=== PATIENT | male | born 1955 | race Caucasian/White ===

== ENCOUNTER 2024-11-22 11:31 | Emergency (ER) | payer MEDICAID ==
--- OUTSIDE RECORDS SUMMARY | 2024-11-22 11:38 | XMS REPORT | Continuity of Care Document ---
Author Name Unknown Address [address] [facility]. [address] [id number] [facility] thconnect Address [address] [facility]. 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 Name Role Phone Hernesto Arias Primary Care Physician [phone] JUAN RAMON HALE Attending Clinician Unavailable MAYUR VELEZ Attending Clinician Unavailabl e LAB90 Attending Clinician Unavailable MARYLIN STUART Attending Clinician UnavailNaren Shepherd Attending Clinician Unavailable MARIN WEEMS Attending Clinician Unava ilable GINA_Calvin_Zoila Attending Clinician Unavaila luke AO_A_Provider Attending Clinician Unavailable PRECIOUS CULP Attending Clinician Unavailable ABIMAEL FAUSTIN Attending Clinician UnavailCOLETTE Freed Attending Clinician UnaNAREN Espinosa Attending Clinician Unavailable VIVEK CHEEK Attending Clinician Unavailable Lit London Attending Clinician Unavailab Kathi Jacobs MD Attending Clinician KATHI BRUNSON Attending Clinician Unavailable Unknown, Attending Attending Clinician Unavailab le Doctor Unassigned, Vina Attending Clinician U Asia Lundberg Attending Clinician [phone] Naren Simpson Attending Clinician [phone] Radiology Attending Clinician Unavailable RADIOLOGY Attending Clinician Unavailable DUSTY DICKERSON P.A. Attending Clinician Unavailab ANGUS Ann M.D. Attending Clinician Unavailable ANGUS VUONG Attending Clinician UnavailLEONCIO Guzman M.D. Attending Clinician Unavaila Naren Cohn Admitting Clinician Unavailable GINA_Calvin_Naren_ Admitting Clinician Unavaila luke AO_A_Provider Admitting Clinician Unavailable Hernesto Arias Admitting Clinician Unavailable Physician, No Primary or Family Admitting Clinic kelly Unavailable Payers Payer Name Policy Type Policy Number Effective Date Expirati on Date Source [facility] HMO-POS 16 [id number] 00:00:00 PAIGE FLORES - [place] [employer] (MEDICARE REPLACEMENT HMO) [id number] WENDI BRACING - [facility] [id number] [place] [employer] [id number] 2019 00:00:00 [place] [id number] 2018 00:00:00 [place] [id number] 2018 00:00:00 2022 00:00:00 Problems Condition Name Condition Details Condition Category Status Onset Date Resolution Date Last Treatment Date Treating Clinician Comments Source Well adult exam Well adult exam Disease Active 2023-11 2- 00:00: 00 Paige Yoon Externa l History of ankle surgery History of ankle surgery Disease Active 2022-11 2-15 00:00: 00 Paige lewis Class 1 obesity due to excess calories with serious comorbidit y and body mass index (BMI) of 34.0 to 34.9 in adult Class 1 obesity due to excess calories with serious comorbidit y and body mass index (BMI) of 34.0 to 34.9 in adult Disease Active 05-01 00:00: 00 Paige lewis HTN (hypertens ion) HTN (hypertens ion) Disease Active 05-01 00:00: 00 Paige lewis Hyperlipid emia Hyperlipid emia Disease Active 05-01 00:00: 00 Paige lewis Obesity Obesity Disease Active 05-01 00:00: 00 Paige lewis Post-traum atic osteoarthr itis, 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, left ankle and foot Disease Active 05-01 00:00: 00 Paige lewis History of colon polyps History of colon polyps Disease Active 05-01 00:00: 00 Paige lewis Risk for falls Risk for falls Disease Active 05-01 00:00: 00 Paige Duponta debbie Prediabete s Prediabete s Disease Active 05-01 00:00: 00 Paige lewis Pain of right shoulder joint Pain of Right Shoulder Joint Problem Active 2021-11 00:00: 00 [facility] Rupture of tendon of biceps Rupture of Tendon of Biceps Problem Active 2021-11 00:00: 00 [facility] Pain of right elbow joint Pain of Right Elbow Joint Problem Active 2021-11 00:00: 00 [facility] Dehiscence of surgical wound Dehiscence of Surgical Wound Problem Active 05-08 00:00: 00 [facility] Pseudarthr osis after fusion or arthrodesi s Pseudarthr osis after Fusion or Arthrodesi s Problem Active 2022-0 4-21 00:00: 00 [facility] Osteoarthr itis of left ankle due to trauma Osteoarthr itis of Left Ankle Due to Trauma Problem Active 0 7-06 00:00: 00 [facility] Pain of left ankle joint Pain of Left Ankle Joint Problem Active 0 6-09 00:00: 00 [facility] Closed dislocatio n of left ankle Closed dislocatio n of left ankle Disease Active 18 00:00: 00 [facility] Open displaced fracture of neck of left talus with routine healing Open displaced fracture of neck of left talus with routine healing Disease Active 18 00:00: 00 [facility] Closed displaced fracture of left talus, unspecifie d portion of talus, initial encounter Closed displaced fracture of left talus, unspecifie d portion of talus, initial encounter Problem [facility] Allergies, Adverse Reactions, Alerts Allergy Name Allergy Type Status Severity Reaction(s) Onset Date Inactive Date Treating Clinician Comments Source No Known Drug Allergie s DA Active U 0 6-18 00:00: 00 [facility] No Known Drug Allergie s DA Active U 0 6-12 00:00: 00 [facility] No Known Drug Allergie s DA Active U 0 2-12 00:00: 00 [facility] No Known Allergie s DA Active U 0 9-19 00:00: 00 [facility] No Known Allergie s DA Active U 0 6-28 00:00: 00 [facility] No Known Allergie s DA Active U 0 7-02 00:00: 00 [facility] No Known Allergie s DA Active U 0 7-02 00:00: 00 [facility] No Known Drug Allergie s DA Active U 0 3-24 00:00: 00 [facility] No Known Drug Allergie s DA Active U UNKNOWN 0 3-24 00:00: 00 [facility] NO KNOWN ALLERGIE S Drug Class Active [facility] Social History Social Habit Start Date Stop Date Quantity Comments Source Gender identity Sadie garcia Carina - External Sexual orientation Yash langford Segrace - External History of Occupation Paige Lim - External Alcoholic beverage intake 2024-11-01 00:00:00 2024-11-01 00:00:00 Current drinker of alcohol (finding) Paige Lim - External Alcohol intake 2023-10-31 00:00:00 2023-10-31 00:00:00 Current drinker of alcohol (finding) Paige Lim - External History of Social function 2023-08-04 00:00:00 2023-08-04 00:00:00 Paige Lim - External Tobacco use and exposure 2023-05-01 00:00:00 2023-05-01 00:00:00 Smokeless tobacco non-user Paige Lim - External Education 2023-05-01 00:00:00 2023-05-01 00:00:00 13 Paige Lim - External Alcohol Comment 2023-05-01 00:00:00 2023-05-01 00:00:00 occasionally Paige Lim - External Sex 2022-12-27 10:42:34 2022-12-27 10:42:34 Male (finding) Paige Lim - External Exposure to SARS-CoV-2 (event) 2022-10-19 00:00:00 2022-10-29 08:56:00 Not sure [facility] Sex assigned at 1955 00:00:00 1955 00:00:00 Paige Lim - External Smoking Status Start Date Stop Date Source Tobacco smoking consumption unknown [facility] Never smoked tobacco Paige Lim - External Medications Ordered Medication Name Filled Medication Name Start Date Stop Date Current Medication? Ordering Clinician Indication Dosage Frequency Signature (SIG) Comments Components Source Tirzepatide -Weight Management 2.5 MG/0.5ML subcutaneou s Solution Auto-inject or 2023-11 00:00: 00 Yes [id number] 104 2.5mg Q1W Inject 0.5 mL (2.5 mg total) into the skin once a week. Paige lewis Aspirin 81 MG oral Tablet Delayed Response 14 14:49: 33 04-30 00:00 :00 No 81mg Take 1 tablet (81 mg total) by mouth daily. Paige lewis Atorvastati n Calcium 40 MG oral Tablet 04-30 00:00: 00 Yes [id number] 40mg QD Take 1 tablet (40 mg total) by mouth nightly. Paige lewis Candesartan Cilexetil 32 MG oral Tablet 04-30 00:00: 00 Yes [id number] 1{tbl} QD Take 1 tablet by mouth daily. Paige lewis Aspirin 81 MG oral Tablet Delayed Response 04-30 00:00: 00 Yes [id number] 81mg QD Take 1 tablet (81 mg total) by mouth daily. Paige lewis Atorvastati n Calcium 40 MG oral Tablet 12-31 00:00: 00 04-30 00:00 :00 No 40mg Take 1 tablet (40 mg total) by mouth nightly. Paige lewis Candesartan Cilexetil 32 MG oral Tablet 12-31 00:00: 00 04-30 00:00 :00 No 1{tbl} Take 1 tablet by mouth daily. Paige lewis Aspirin 81 MG oral Tablet Delayed Response 2022-11 14:11: 04 Yes 81mg Take 1 tablet (81 mg total) by mouth daily. Paige lewis Candesartan Cilexetil 32 MG oral Tablet 2022-1115 14:10: 42 Yes 1{tbl} Take 1 tablet by mouth daily. Paige lewis Acetaminoph en-Codeine 300-30 MG oral Tablet 2022-11 0-23 00:00: 00 04-30 00:00 :00 No TAKE 1-2 TAB(S) BY ORAL ROUTE EVERY 6 HOURS NEEDED FOR PAIN Paige lewis Atorvastati n Calcium 40 MG oral Tablet 5-26 00:00: 00 Yes 40mg Take 1 tablet (40 mg total) by mouth daily. Paige lewis ketorolac (TORADOL) injection 30 mg 2021-11 16:30: 00 10-29 15:34 :00 No [id number] [address] [facility] atorvastati n 40 mg tablet 2021-11 09:23: 10 Yes atorvastat in 40 mg tablet [facility] chlorthalid one 25 mg tablet 2021-11 09:23: 10 Yes chlorthali done 25 mg tablet TAKE 1 TABLET BY MOUTH EVERY MORNING WITH FOOD [facility] liraglutide , weight loss, (SAXENDA) 3 mg/0.5 mL (18 mg/3 mL) PnIj 2021-11 09:23: 09 Yes Saxenda 3 mg/0.5 mL (18 mg/3 mL) subcutaneo us pen injector [facility] gabapentin 300 mg capsule 2021-11 09:23: 09 Yes gabapentin 300 mg capsule [facility] traMADoL 50 mg tablet 2021-11 00:00: 00 11-06 05:59 :00 No [id number] 50mg Take 1 tablet by mouth every 6 (six) hours as needed for Pain (scale 7-10) for up to 7 days. Indication s: acute pain [facility] Candesartan Cilexetil-H CTZ 32-12.5 MG oral Tablet 2021-11 0-14 00:00: 00 Yes candesarta n 32 mg-hydroch lorothiazi de 12.5 mg tablet Paige lewis atorvastati n 40 mg tablet 2021-11 00:00: 00 Yes 40mg Take 40 mg by mouth in the morning. [facility] amLODIPine 2.5 mg tablet 2021-11 004 00:00: 00 Yes 2.5mg Take 2.5 mg by mouth in the morning. [facility] Sulfamethox azole-Trime thoprim 800-160 MG Oral Tablet Sulfamethox azole-Trime thoprim 800-160 MG Oral Tablet 2019-11 00:00: 00 Yes ANGUS VUONG M.D. 1 Q12H TAKE 1 TABLET Every twelve hours [facility] Sulfamethox azole-Trime thoprim 800-160 MG Oral Tablet Sulfamethox azole-Trime thoprim 800-160 MG Oral Tablet 2019-11 00:00: 00 Yes ANGUS VUONG M.D. 1 Q12H TAKE 1 TABLET Every twelve hours [facility] traMADol HCl - 50 MG Oral Tablet traMADol HCl - 50 MG Oral Tablet 2019-11 00:00: 00 Yes ANGUS VUONG M.D. 1 Q8H TAKE 1 TABLET EVERY 8 HOURS PRN [facility] Acetaminoph en-Codeine #3 300-30 MG Oral Tablet Acetaminoph en-Codeine #3 300-30 MG Oral Tablet 2019-11 00:00: 00 Yes ANGUS VUONG M.D. 1 Q6H TAKE 1 TABLET EVERY 6 HOURS PRN pain [facility] Gabapentin 300 MG Oral Capsule Gabapentin 300 MG Oral Capsule 2019-11 00:00: 00 Yes ANGUS VUONG M.D. Q0.3333D TAKE ONE CAPSULE BY MOUTH THREE TIMES A DAY [facility] traMADol HCl - 50 MG Oral Tablet traMADol HCl - 50 MG Oral Tablet 2019-11 00:00: 00 Yes DUSTY Gandara.A. 1 Q8H TAKE 1 TABLET EVERY 8 HOURS PRN [facility] Gabapentin 300 MG Oral Capsule Gabapentin 300 MG Oral Capsule 2019-11 00:00: 00 Yes DUSTY DICKERSON P.A. 1 Q0.3333D TAKE 1 CAPSULE 3 TIMES DAILY [facility] Methocarbam ol 500 MG Oral Tablet Methocarbam ol 500 MG Oral Tablet 2019-11 00:00: 00 Yes DUSTY DICKERSON P.A. 1 Q12H TAKE 1 TABLET Every twelve hours PRN [facility] amoxicillin 875 mg-potassiu m clavulanate 125 mg tablet TAKE 1 TABLET TWICE A DAY BY ORAL ROUTE DIRECTED FOR 56 DAYS. amoxicillin 875 mg-potassiu m clavulanate 125 mg tablet TAKE 1 TABLET TWICE A DAY BY ORAL ROUTE DIRECTED FOR 56 DAYS. No amoxicilli n 875 mg-potassi um clavulanat e 125 mg tablet TAKE 1 TABLET TWICE A DAY BY ORAL ROUTE DIRECTED FOR 56 DAYS. [facility] baclofen 10 mg tablet TAKE 5 MG (1/2 TABLET) BY MOUTH EVERY 6 HOURS NEEDED FOR MUSCLE SPASMS LEFT ANKLE FRACTURE baclofen 10 mg tablet TAKE 5 MG (1/2 TABLET) BY MOUTH EVERY 6 HOURS NEEDED FOR MUSCLE SPASMS LEFT ANKLE FRACTURE No baclofen 10 mg tablet TAKE 5 MG (1/2 TABLET) BY MOUTH EVERY 6 HOURS NEEDED FOR MUSCLE SPASMS LEFT ANKLE FRACTURE [facility] doxycycline hyclate 100 mg capsule TAKE 1 CAPSULE TWICE A DAY BY ORAL ROUTE DIRECTED FOR 56 DAYS. doxycycline hyclate 100 mg capsule TAKE 1 CAPSULE TWICE A DAY BY ORAL ROUTE DIRECTED FOR 56 DAYS. No doxycyclin e hyclate 100 mg capsule TAKE 1 CAPSULE TWICE A DAY BY ORAL ROUTE DIRECTED FOR 56 DAYS. [facility] meloxicam 7.5 mg tablet TAKE 1 TABLET (7.5 MG TOTAL) BY MOUTH 1 (ONE) TIME EACH DAY. meloxicam 7.5 mg tablet TAKE 1 TABLET (7.5 MG TOTAL) BY MOUTH 1 (ONE) TIME EACH DAY. No meloxicam 7.5 mg tablet TAKE 1 TABLET (7.5 MG TOTAL) BY MOUTH 1 (ONE) TIME EACH DAY. [facility] methocarbam ol 500 mg tablet TAKE 1 TABLET BY MOUTH EVERY 6 TO 8 HOURS NEEDED methocarbam ol 500 mg tablet TAKE 1 TABLET BY MOUTH EVERY 6 TO 8 HOURS NEEDED No methocarba mol 500 mg tablet TAKE 1 TABLET BY MOUTH EVERY 6 TO 8 HOURS NEEDED [facility] Santyl 250 unit/gram topical ointment APPLY TOPICALLY TO WOUND (LEFT HEEL) DIRECTED ONCE DAILY FOR 30 DAYS Santyl 250 unit/gram topical ointment APPLY TOPICALLY TO WOUND (LEFT HEEL) DIRECTED ONCE DAILY FOR 30 DAYS No Santyl 250 unit/gram topical ointment APPLY TOPICALLY TO WOUND (LEFT HEEL) DIRECTED ONCE DAILY FOR 30 DAYS [facility] cyclobenzap rine 5 mg tablet TAKE 1 TABLET BY MOUTH EVERYDAY AT BEDTIME cyclobenzap rine 5 mg tablet TAKE 1 TABLET BY MOUTH EVERYDAY AT BEDTIME No cyclobenza willis 5 mg tablet TAKE 1 TABLET BY MOUTH EVERYDAY AT BEDTIME [facility] gabapentin 100 mg capsule TAKE 1 CAPSULE BY MOUTH THREE TIMES A DAY gabapentin 100 mg capsule TAKE 1 CAPSULE BY MOUTH THREE TIMES A DAY No gabapentin 100 mg capsule TAKE 1 CAPSULE BY MOUTH THREE TIMES A DAY [facility] hydrocodone 5 mg-acetamin ophen 325 mg tablet TAKE 1-2 TABLET(S) BY ORAL ROUTE EVERY 6 HOURS NEEDED FOR PAIN hydrocodone 5 mg-acetamin ophen 325 mg tablet TAKE 1-2 TABLET(S) BY ORAL ROUTE EVERY 6 HOURS NEEDED FOR PAIN No hydrocodon e 5 mg-acetami nophen 325 mg tablet TAKE 1-2 TABLET(S) BY ORAL ROUTE EVERY 6 HOURS NEEDED FOR PAIN [facility] sodium,pota ssium,mag sulfates 17.5 gram-3.13 gram-1.6 gram oral soln sodium,pota ssium,mag sulfates 17.5 gram-3.13 gram-1.6 gram oral soln No sodium,pot assium,mag sulfates 17.5 gram-3.13 gram-1.6 gram oral soln [facility] albuterol sulfate HFA 90 mcg/actuati on aerosol inhaler INHALE 1 PUFF BY MOUTH EVERY 4 HOURS NEEDED FOR COUGH OR WHEEZE albuterol sulfate HFA 90 mcg/actuati on aerosol inhaler INHALE 1 PUFF BY MOUTH EVERY 4 HOURS NEEDED FOR COUGH OR WHEEZE No albuterol sulfate HFA 90 mcg/actuat ion aerosol inhaler INHALE 1 PUFF BY MOUTH EVERY 4 HOURS NEEDED FOR COUGH OR WHEEZE [facility] Immunizations Ordered Immunization Name Filled Immunization Name Date Status Comments Source Shingles IM (Shingrix) 2023-04-16 00:00:00 Gennaro Yoon External Shingles IM (Shingrix) 2023-04-16 00:00:00 Gennaro Mccrary Influenza Virus Vaccine, Unspecified Formulation 2022-08-17 00:00:00 Gennaro Yoon External Influenza Virus Vaccine, Unspecified Formulation 2022-08-17 00:00:00 Gennaro Mccrary Influenza Virus Vaccine, Quadrivalent, High Dose, Age 65 And Up 2022-08-05 00:00:00 Gennaro Lim - External Influenza Virus Vaccine, Quadrivalent, High Dose, Age 65 And Up 2022-08-05 00:00:00 [facility] Moderna (Spikevax), Mrna-lnp, Vicente Protein, Pf 2021-12-08 00:00:00 Completed [facility]ige [facility] - External Covid-19 Vaccine Moderna (Spikevax), Mrna-lnp, Vicente Protein, Pf 2021-12-08 00:00:00 [facility] Influ[facility] Vaccine, Quadrivalent, High Dose, Age 65 And Up 2021-09-14 00:00:00 [facility] Influ[facility] Vaccine, Quadrivalent, High Dose, Age 65 And Up 2021-09-14 00:00:00 [facility] Influ[facility] Vaccine, Unspecified Formulation 2021-08-17 00:00:00 [facility] Influ[facility] Vaccine, Unspecified Formulation 2021-08-17 00:00:00 Completed Paige [facility] External Covid-19 Vaccine Moderna (Spikevax), Mrna-lnp, Vicente Protein, Pf 2021-02-21 00:00:00 Completed Paige [facility] - External Covid-19 Vaccine Moderna (Spikevax), Mrna-lnp, Vicente Protein, Pf 2021-02-21 00:00:00 Completed Paige [facility] External Covid-19 Vaccine Moderna (Spikevax), Mrna-lnp, Vicente Protein, Pf 2021-01-24 00:00:00 Completed [facility] - External Covid-19 Vaccine Moderna (Spikevax), Mrna-lnp, Vicente Protein, Pf 2021-01-24 00:00:00 Completed Paige [facility] - External influenza, unspecified formulation influenza, unspecified formulation Unknown Completed [facility] Influenza Virus Vaccine, Quadrivalent, High Dose, Age 65 And Up Unknown Completed Paige [facility] - External Influenza Virus Vaccine, Quadrivalent, High Dose, Age 65 And Up Unknown Completed [facility] - External Influenza Virus Vaccine, Unspecified Formulation Unknown [facility] Sh[facility] (Shingrix) Unknown Completed Paige Seybold - External Covid-19 Vaccine Moderna (Spikevax), Mrna-lnp, Vicente Protein, Pf Unknown Completed Paige Clayton[facility] - External Influenza Virus Vaccine, High Dose, Age 65 And Up Unknown Completed Paige Claytony[facility] - External Influenza Virus Vaccine, Quadrivalent, High Dose, Age 65 And Up Unknown Completed Paige Zamora [facility] - External Influenza Virus Vaccine, Quadrivalent, High Dose, Age 65 And Up Unknown Completed Paige S [facility] - External Influenza Virus Vaccine, Unspecified Formulation Unknown Completed Paige Claytonybold - External Shingles IM (Shingrix) Unknown Completed Paige Claytonybold - External Covid-19 Vaccine Moderna (Spikevax), Mrna-lnp, Vicente Protein, Pf Unknown Completed Paige Claytonybold - External Influenza Virus Vaccine, High Dose, Age 65 And Up Unknown Completed Paige Claytonybold - External Influenza Virus Vaccine, Quadrivalent, High Dose, Age 65 And Up Unknown Completed Paige S eybold - External Influenza Virus Vaccine, Quadrivalent, High Dose, Age 65 And Up Unknown Completed Paige S [facility] - External Influenza Virus Vaccine, Unspecified Formulation Unknown Completed Paige Holmanold - External Shingles IM (Shingrix) Unknown Completed Paige Claytonybold - External Covid-19 Vaccine Moderna (Spikevax), Mrna-lnp, Vicente Protein, Pf Unknown Completed Paige Claytonybold - External Influenza Virus Vaccine, High Dose, Age 65 And Up Unknown Completed Paige Claytonybold - External Pneumococcal Vaccine, Conjugate 20 Unknown Completed Paige Claytonybold - External Vital Signs Vital Name Observation Time Observation Value Comments S ource Systolic blood pressure 2024-11-01 19:50:00 138 mm[Hg] Paige Holmano ld - External Diastolic blood pressure 2024-11-01 19:50:00 80 mm[Hg] Paige ganesho ld - External Heart rate 2024-11-01 19:50:00 76 /min Christian Lim - External Body temperature 2024-11-01 19:50:00 36.67 Denise Paige ybcameron - External Respiratory rate 2024-11-01 19:50:00 18 /min Paige Lim - External Body height 2024-11-01 19:50:00 177.8 cm Sadie garcia grace - External Body weight 2024-11-01 19:50:00 117.935 kg Sadie ey Seybold - External BMI 2024-11-01 19:50:00 37.31 kg/m2 Sadie ey Seybold - External Oxygen saturation in Arterial blood by Pulse oximetry 2024-11-01 19:50:00 98 /min Paige Seybo ld - External Systolic blood pressure 2024-04-30 19:49:00 138 mm[Hg] Paige Seybo ld - External Diastolic blood pressure 2024-04-30 19:49:00 78 mm[Hg] Paige Seybo ld - External Heart rate 2024-04-30 19:33:00 77 /min Kelse y Seybold - External Body temperature 2024-04-30 19:33:00 37.22 Denise Paige Seybold - External Respiratory rate 2024-04-30 19:33:00 16 /min Paige Seybold - External Body height 2024-04-30 19:33:00 177.8 cm Sadie ey Seybold - External Body weight 2024-04-30 19:33:00 108.863 kg Sadie ey Seybold - External BMI 2024-04-30 19:33:00 34.44 kg/m2 Sadie ey Seybold - External Oxygen saturation in Arterial blood by Pulse oximetry 2024-04-30 19:33:00 97 /min Paige Seybo ld - External Systolic blood pressure 2023-10-31 20:15:00 136 mm[Hg] Paige Seybo ld - External Diastolic blood pressure 2023-10-31 20:15:00 72 mm[Hg] Paige Seybo ld - External Body weight 2023-10-31 20:11:00 104.327 kg Sadie ey Seybold - External BMI 2023-10-31 20:11:00 33.00 kg/m2 Sadie ey Seybold - External Oxygen saturation in Arterial blood by Pulse oximetry 2023-10-31 20:11:00 99 /min Paige Seybo ld - External Heart rate 2023-10-31 20:11:00 73 /min Kelse y Seybold - External Body temperature 2023-10-31 20:11:00 36.72 Denise Paige Seybold - External Respiratory rate 2023-10-31 20:11:00 15 /min Paige Seybold - External Body height 2023-10-31 20:11:00 177.8 cm Sadie ey Seybold - External Systolic blood pressure 2023-05-07 18:29:00 140 mm[Hg] Paige Seybo ld - External Diastolic blood pressure 2023-05-07 18:29:00 90 mm[Hg] Paige Seybo ld - External Heart rate 2023-05-07 18:29:00 90 /min Kelse y Seybold - External Respiratory rate 2023-05-07 18:29:00 16 /min Paige Seybold - External Body height 2023-05-07 18:29:00 177.8 cm Sadie ey Seybold - External Body weight 2023-05-07 18:29:00 106.142 kg Sadie ey Seybold - External BMI 2023-05-07 18:29:00 33.58 kg/m2 Sadie ey Seybold - External Systolic blood pressure 2023-05-01 15:58:00 142 mm[Hg] Paige Seybo ld - External Diastolic blood pressure 2023-05-01 15:58:00 80 mm[Hg] Paige Seybo ld - External Heart rate 2023-05-01 15:22:00 97 /min Kelse y Seybold - External Body temperature 2023-05-01 15:22:00 36.72 Denise Paige Seybold - External Respiratory rate 2023-05-01 15:22:00 14 /min Paige Seybold - External Body height 2023-05-01 15:22:00 177.8 cm Sadie ey Seybold - External Body weight 2023-05-01 15:22:00 106.142 kg Sadie ey Seybold - External BMI 2023-05-01 15:22:00 33.58 kg/m2 Sadie ey Seybold - External Oxygen saturation in Arterial blood by Pulse oximetry 2023-05-01 15:22:00 99 /min Paige Claytonybo ld - External Height 2022-11-06 00:00:00 70 [in_i] [facility] Height 2022-10-30 00:00:00 70 [in_i] [facility] Systolic blood pressure 2022-10-29 15:14:00 143 mm[Hg] [facility] Diastolic blood pressure 2022-10-29 15:14:00 79 mm[Hg] [facility] Heart rate 2022-10-29 15:13:00 87 /[facility] Body temperature 2022-10-29 15:13:00 37.06 Denise [facility] Respiratory rate 2022-10-29 15:13:00 17 /min [facility] Body height 2022-10-29 15:13:00 177.8 cm [facility] Body weight 2022-10-29 15:13:00 102.513 kg [facility] BMI 2022-10-29 15:13:00 32.43 kg/m2 [facility] Oxygen saturation in Arterial blood by Pulse oximetry 2022-10-29 15:13:00 99 /min [facility] Body Weight 2022-08-14 00:00:00 217 [lb_av] [facility] Height 2022-08-14 00:00:00 70 [in_i] [facility] BMI (Body Mass Index) 2022-08-14 00:00:00 31.1 kg/m2 [facility] Height 2022-08-07 00:00:00 70 [in_i] [facility] BMI (Body Mass Index) 2022-08-07 00:00:00 31.1 kg/m2 [facility] Body Weight 2022-08-07 00:00:00 217 [lb_av] [facility] Procedures Procedure Date / Time Performed Performing Clinician Source XR, ankle, 3 or more view 2024-07-14 00:00:[address] [facility] [address], ankle, w/o contrast 2024-07-14 00:00:00 [facility] XR, ankle, 3 or more view 2024-06-11 00:00:00 [facility] [id number] 2024-05-04 00:00:00 LENA [facility] [id number] 2024-05-04 00:00:00 BRIMA.01 [facility] XR, ankle, 3 or more view 2024-03-31 00:00:[address] [facility], ankle, w/o contrast 2024-03-31 00:00:00 [facility] XR, ankle, 3 or more view 2024-03-03 00:00:00 [facility] XR, ankle, 3 or more view 2024-02-04 00:00:[address] [facility] [address], ankle, w/o contrast 2024-02-04 00:00:00 [facility] XR, ankle, 3 or more view 2023-12-01 00:00:[address] [facility] [address], ankle, w/o contrast 2023-12-01 00:00:00 [facility] XR, ankle, 3 or more view 2023-10-27 00:00:00 [facility] XR, ankle, 3 or more view 2023-10-06 00:00:00 [facility] XR, ankle, 3 or more view 2023-09-22 00:00:00 [facility] [id number] 2023-09-04 00:00:00 [facility] [id number] 2023-09-04 00:00:00 [facility] [id number] 2023-05-27 00:00:00 [facility] [id number] 2023-05-27 00:00:00 [facility] QUANTAFLO 2023-05-01 16:05:52 Juan Ramon Hale Seybold - External Colonoscopy 2023-04-29 00:00:00 [facility] DEXA, axial skeleton + vertebral fracture assessment 2023-03-12 00:00:00 [facility] XR, ankle, 3 or more view 2023-03-07 00:00:[address] [facility] [address], ankle, w/o contrast 2023-02-06 00:00:00 [facility] XR, ankle, 3 or more view 2022-11-22 00:00:[address] [facility] [address], ankle, w/o contrast 2022-11-22 00:00:00 [facility] MRI, shoulder, w/o contrast 2022-11-06 00:00:00 [facility] MRI, elbow, w/o contrast 2022-10-30 00:00:00 [facility] XR ELBOW >3 VW RIGHT 2022-10-29 15:42:00 Kathi Brunson [facility] ASSIGNMENT OF BENEFITS 2022-10-29 15:00:12 Docto r Unassigned, Vina [facility] XR, ankle, 3 or more view 2022-09-23 00:00:00 [facility] XR, ankle, 3 or more view 2022-07-17 00:00:[address] [facility] [address], ankle, w/o contrast 2022-07-17 00:00:00 [facility] [id number] 2022-06-13 00:00:00 BRIMA.01 [facility] [id number] 2022-06-11 00:00:00 BERED [facility] [id number] 2022-06-11 00:00:00 BRIMA.01 [facility] XR, ankle, 3 or more view 2022-05-08 00:00:00 [facility] [id number] 2022-03-05 00:00:00 BERED [facility] [id number] 2022-03-05 00:00:00 BERED [facility] [id number] 2022-03-05 00:00:00 BRIMA.01 [facility] [id number] 2022-03-05 00:00:00 BRIMA.01 [facility] [id number] 2022-03-05 00:00:00 BRIMA.01 [facility] [id number] 2022-03-05 00:00:00 BERED [facility] [id number] 2022-03-05 00:00:00 BERED [facility] [id number] 2022-03-05 00:00:00 BRIMA.01 [facility] [id number] 2022-03-05 00:00:00 BRIMA.01 [facility] [id number] 2022-03-05 00:00:[address] BRIMA.[address] [facility] [address] FOOT LEFT WO CONTRAST 2021-04-11 21:51:00 Requisition, Paper [facility] Post Op Promis 29 Survey 2020-12-06 00:00:00 [facility] [U] XRAY ANKLE MIN 3 VWS LEFT [id number] 2020-11-07 00:00:00 [facility] Encounters Start Date/Time End Date/Time Encounter Type Admission Type Attending Clinicians Care Facility Care Department Encounter ID Source 2025-05-02 14:00:00 2025-05-02 14:00:00 Outpatient JUAN RAMON HALE [id number] [facility] 2024-11-29 13:30:00 2024-11-29 13:30:00 Outpatient MAYUR VELEZ [id number] [facility] 2024-11-22 00:00:00 2024-11-22 00:00:00 Outpatient JUAN RAMON HALE [id number] [facility] 2024-11-04 00:00:00 2024-11-04 00:00:00 Outpatient JUAN RAMON HALE [id number] [facility] 2024-11-03 00:00:00 2024-11-03 00:00:00 Outpatient JUAN RAMON HALE [id number] [facility] 2024-11-01 15:00:00 2024-11-01 15:00:00 Outpatient LABSatish CAVANAUGH [id number] [facility] 2024-11-01 14:00:00 2024-11-01 14:00:00 [facility] [id number] [facility]25 00:00:00 2024-10-25 00:00:00 Outpatient MARYLIN STUART [id number] [facility] 2024-10-20 11:00:00 2024-10-20 11:00:00 Outpatient Naren Garrett [facility] [id number] [facility] 2024-10-20 00:00:00 2024-10-20 00:00:00 Naren Simpson MD: [address] [place] [address] , Ph. [phone] [place] [facility] [place] [facility] F[facility]Ofc Main [place] [id number] [facility] 2024-10-10 00:00:00 2024-10-10 00:00:00 Outpatient CARISSA JUAN RAMON PAIGE CAVANAUGH [id number] [facility] 2024-08-17 00:00:00 2024-08-17 00:00:00 Outpatient PAIGE CAVANAUGH [id number] [facility] 2024-08-13 00:00:00 2024-08-13 00:00:00 Outpatient PAIGE CAVANAUGH [id number] [facility] 2024-07-14 00:00:00 2024-07-14 00:00:00 Naren Simpson MD: [address] [place] [address] , Ph. [phone] [facility] [place] [facility] [place] [facility] [id number] [facility] 2024-06-11 00:00:00 2024-06-11 00:00:00 Naren Simpson MD: [address] [place] [address] , Ph. [phone] [place] [facility] [place] [facility] FOG_Ofc [address] [id number] [facility] 2024-05-14 00:00:00 2024-05-14 00:00:00 Naren Simpson MD: [address] [place] [address] , Ph. [phone] [place] [facility] [place] [facility] [id number] [facility] 2024-05-12 00:00:00 2024-05-12 00:00:00 Outpatient PAIGE CAVANAUGH [id number] [facility] 2024-05-06 00:00:00 2024-05-06 00:00:00 Outpatient MARIN WEEMS PAIGE CAVANAUGH [id number] [facility] 2024-05-04 07:42:00 2024-05-05 12:09:00 Inpatient Naren Garrett [facility] [id number] [facility] 2024-05-04 00:00:00 2024-05-04 00:00:00 Naren Simpson MD: [address] [place] [phone] , Ph. [phone] [facility] [place] [facility] [place] [facility] FOG[facility]Surgery [id number] [facility] 2024-04-30 14:45:00 2024-04-30 14:45:00 Outpatient [facility] RAM[facility] HALE [id number] [facility] 2024-04-28 18:53:00 2024-04-28 18:53:00 Outpatient Naren Simpson HCAC[facility] LABO [id number] 31 [facility] 2024-04-28 11:42:00 2024-04-28 11:42:00 Outpatient BARBARA Naren Simpson [facility] [id number] [facility] 2024-04-28 00:00:00 2024-04-28 00:00:00 Naren Simpson MD: [address] [place] [address] , Ph. [phone] [facility] [place] [facility] [place] [facility] [id number] [facility] 2024-04-06 00:00:00 2024-04-06 00:00:00 Outpatient PAIGE CAVANAUGH [id number] [facility] 2024-03-31 00:00:00 2024-03-31 00:00:00 Naren Simpson MD: [address] [place] [phone] , Ph. [phone] [place] [facility] [place] [facility] [id number] [facility] 2024-03-09 00:00:00 2024-03-09 00:00:00 Outpatient PAIGE CAVANAUGH [id number] [facility] 2024-03-03 12:01:00 2024-03-03 12:01:00 Outpatient [facility]ren Garrett [facility] [id number] [facility] [facility] [place] [facility] 2024-03-03 00:00:00 2024-03-03 00:00:00 Naren Simpson MD: [address] [place] [address] , Ph. [phone] [place] [facility] [place] [facility] [id number] [facility] 2024-03-01 00:00:00 2024-03-01 00:00:00 Outpatient PAIGE CAVANAUGH [id number] [facility] 2024-02-23 00:00:00 2024-02-23 00:00:00 Outpatient [facility] [id number] [facility] 2024-02-12 00:00:00 2024-02-12 00:00:00 Outpatient [facility] [id number] [facility] 2024-02-04 00:00:00 2024-02-04 00:00:00 Naren Simpson MD: [address] [place] [address] , Ph. [phone] [place] [facility] [place] [facility] FOG_Ofc [address] [id number] [facility] 2024-02-04 00:00:00 2024-02-04 00:00:00 Naren Simpson MD: [address] [place] [phone] , Ph. [phone] [place] [facility] [place] [facility] [id number] [facility] 2024-01-09 00:00:00 2024-01-09 00:00:00 Outpatient PAIGE CAVANAUGH [id number] [facility] 2024-01-08 06:25:00 2024-01-08 06:25:00 Outpatient Naren Garrett HCAT[facility] DAYS [id number] 46 [facility] 2024-01-08 00:00:00 2024-01-08 00:00:00 Naren Simpson MD: [address] [place] [address] , Ph. [phone] [place] [facility] [place] [facility] [id number] [facility] 2023-12-30 00:00:00 2023-12-30 00:00:00 Outpatient JUAN RAMON HALE [id number] [facility] 2023-12-29 11:47:00 2023-12-29 11:47:00 Out[facility] [id number] [facility] 2023-12-29 00:00:00 2023-12-29 00:00:00 Naren Simpson MD: [address] [place] [address] , Ph. [phone] [place] [facility] [place] [facility] [id number] [facility] 2023-12-20 00:00:00 2023-12-20 00:00:00 Outpatient AO_A_Provid er AOSM AO [id number] [facility] 2023-12-04 00:00:00 2023-12-04 00:00:00 Outpatient PAIGE CAVANAUGH [id number] [facility] 2023-12-01 00:00:00 2023-12-01 00:00:00 Outpatient GINA_Calvin _Naren_ AOSM AO [id number] [facility] 2023-12-01 00:00:00 2023-12-01 00:00:00 Naren Simpson MD: [address] [place] [address] , Ph. [phone] [place] [facility] [place] [facility] F[facility]Ofc [address] [id number] [facility] 2023-11-30 00:00:00 2023-11-30 00:00:00 Outpatient FOG_Calvin Quiroz AOSM AO [id number] [facility] 2023-11-29 00:00:00 2023-11-29 00:00:00 Outpatient AO_A_Provid er AO AO [id number] [facility] 2023-11-12 00:00:00 2023-11-12 00:00:00 Outpatient PAIGE CAVANAUGH [id number] [facility] 2023-11-04 00:00:00 2023-11-04 00:00:00 Outpatient MARINANoahJUAN RAMON [id number] [facility] 2023-10-31 14:50:00 2023-10-31 14:50:00 Outpatient LAB90 PAIGE CAVANAUGH [id number] [facility] 2023-10-31 14:15:00 2023-10-31 14:15:00 Outpatient JUAN RAMON HALE PAIGE CAVANAUGH [id number] [facility] 2023-10-31 00:00:00 2023-10-31 00:00:00 Outpatient CARISSA JUAN RAMON PAIGE CAVANAUGH [id number] [facility] 2023-10-30 00:00:00 2023-10-30 00:00:00 Outpatient FOG_Calvin Quiroz AO AO [id number] [facility] 2023-10-27 00:00:00 2023-10-27 00:00:00 Naren Simpson MD: [address] [place] [address] , Ph. [phone] AOSM [place] [facility] [place] [facility] [id number] [facility] 2023-10-26 00:00:00 2023-10-26 00:00:00 Outpatient FOG_Calvin Quiroz AOSM AO [id number] [facility] 2023-10-24 00:00:00 2023-10-24 00:00:00 Outpatient AO_A_Provid er AOSM AOSM [id number] [facility] 2023-10-14 00:00:00 2023-10-14 00:00:00 Outpatient MARINAJUAN RAMON Zamora PAIGE CAVANAUGH [id number] [facility] 2023-10-08 00:00:00 2023-10-08 00:00:00 Outpatient PRECIOUS CULP PAIGE CAVANAUGH [id number] [facility] 2023-10-06 00:00:00 2023-10-06 00:00:00 Outpatient PAIGE CAVANAUGH [id number] [facility] 2023-10-06 00:00:00 2023-10-06 00:00:00 Naren Simpson MD: [address] [place] [address] , Ph. [phone] [place] [facility] [place] [facility] [id number] [facility] 2023-10-01 00:00:00 2023-10-01 00:00:00 Outpatient FOG_Brinker _Naren_ AOSM AOSM [id number] [facility] 2023-10-01 00:00:00 2023-10-01 00:00:00 Outpatient FOG_Brinker _Naren_ AOSM AOSM [id number] [facility] 2023-09-22 00:00:00 2023-09-22 00:00:00 Outpatient PAIGE CAVANAUGH [id number] [facility] 2023-09-22 00:00:00 2023-09-22 00:00:00 Naren Simpson MD: [address] [place] [phone] , Ph. [phone] [place] [facility] [place] [facility] [id number] [facility] 2023-09-15 00:00:00 2023-09-15 00:00:00 Outpatient PAIGE CAVANAUGH [id number] [facility] 2023-09-13 00:00:00 2023-09-13 00:00:00 Outpatient FOG_Brinker _Mark_MD AOSM AOSM [id number] [facility] 2023-09-13 00:00:00 2023-09-13 00:00:00 Outpatient FOG_Brinker _Mark_MD AOSM AOSM [id number] [facility] 2023-09-13 00:00:00 2023-09-13 00:00:00 Outpatient FOG_Brinker _Mark_MD AOSM AOSM [id number] [facility] 2023-09-13 00:00:00 2023-09-13 00:00:00 Outpatient FOG_Brinker _Mark_MD AOSM AOSM [id number] [facility] 2023-09-12 00:00:00 2023-09-12 00:00:00 Outpatient FOG_Brinker _Mark_ AOSM AOSM [id number] [facility] 2023-09-12 00:00:00 2023-09-12 00:00:00 Naren Simpson MD: [address] [place] [address] , Ph. [phone] [place] [facility] [place] [facility] [id number] [facility] 2023-09-10 00:00:00 2023-09-10 00:00:00 Outpatient PAIGE CAVANAUGH [id number] [facility] 2023-09-09 00:00:00 2023-09-09 00:00:00 Outpatient MARIN WEEMS [id number] [facility] 2023-09-05 10:27:00 2023-09-08 17:08:00 Inpatient Naren Garrett [facility] [id number] [address] [place] [address] [facility] 2023-09-05 00:00:00 2023-09-05 00:00:00 Outpatient [facility]AVANAUGH [id number] [facility]:00:00 2023-09-05 00:00:00 Angus Leung II, 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 [phone] [place] [facility] [place] [facility] [id number] [facility] 2023-09-04 20:09:00 2023-09-04 20:09:00 Outpatient Naren Simpson [facility] [id number] 95 [facility] 2023-08-28 00:00:00 2023-08-28 00:00:00 Outpatient FOG_Patriceer _Zoila AOSM AOSM [id number] [facility] 2023-08-28 00:00:00 2023-08-28 00:00:00 Outpatient FOG_Brinker _Naren_ AOSM AOSM [id number] [facility] 2023-08-28 00:00:00 2023-08-28 00:00:00 Outpatient FOG_Patriceer Richie AOSM AOSM [id number] [facility] 2023-08-20 00:00:00 2023-08-20 00:00:00 Outpatient FOG_Patriceer _Zoila AOSM AOSM [id number] [facility] 2023-08-19 00:00:00 2023-08-19 00:00:00 Outpatient PAIGE CAVANAUGH [id number] [facility] 2023-08-15 00:00:00 2023-08-15 00:00:00 Outpatient FOG_Brinker Richie AOSM AOSM [id number] [facility] 2023-08-15 00:00:00 2023-08-15 00:00:00 Outpatient FOG_Brinker _MarkJESSIE AOSM AOSM [id number] [facility] 2023-08-15 00:00:00 2023-08-15 00:00:00 Outpatient FOG_Brinker _Mark_MD AOSM AOSM [id number] [facility] 2023-08-14 00:00:00 2023-08-14 00:00:00 Outpatient FOG_Brinker _Mark_MD AOSM AOSM [id number] [facility] 2023-08-13 00:00:00 2023-08-13 00:00:00 Outpatient FOG_Brinker _Mark_MD AOSM AOSM [id number] [facility] 2023-08-10 00:00:00 2023-08-10 00:00:00 Outpatient FOG_Brinker _Mark_ AOSM AOSM [id number] [facility] 2023-07-30 08:00:00 2023-07-30 16:00:00 Outpatient Naren GarrettTO 3DAY [id number] [facility] [place] [facility] 2023-07-30 00:00:00 2023-07-30 00:00:00 Outpatient FOG_Brinker _Mark_ AOSM AOSM [id number] [facility] 2023-07-29 00:00:00 2023-07-29 00:00:00 Outpatient FOG_Brinker _Mark_MD AOSM AOSM [id number] [facility] 2023-07-28 13:26:00 2023-07-28 13:26:00 Outpatient Naren GarrettTO RADI [id number] [facility] [place] [facility] 2023-07-23 00:00:00 2023-07-23 00:00:00 Outpatient PAIGE CAVANAUGH [id number] [facility] 2023-07-16 00:00:00 2023-07-16 00:00:00 Outpatient FOG_Brinker _Mark_MD AOSM AOSM [id number] [facility] 2023-07-16 00:00:00 2023-07-16 00:00:00 Outpatient FOG_Brinker _Mark_MD AOSM AOSM [id number] [facility] 2023-07-13 00:00:00 2023-07-13 00:00:00 Outpatient FOG_Brinker _Mark_MD AOSM AOSM [id number] [facility] 2023-07-09 00:00:00 2023-07-09 00:00:00 Outpatient FOG_Brinker _Mark_MD AOSM AOSM [id number] [facility] 2023-07-03 00:00:00 2023-07-03 00:00:00 Outpatient FOG_Brinker _Mark_MD AOSM AOSM [id number] [facility] 2023-06-27 00:00:00 2023-06-27 00:00:00 Outpatient ABIMAEL FAUSTIN [id number] [facility] 2023-06-11 00:00:00 2023-06-11 00:00:00 Outpatient FOG_Brinker _Mark_MD AOSM AOSM [id number] [facility] 2023-06-03 00:00:00 2023-06-03 00:00:00 Outpatient PAIGE CAVANAUGH [id number] [facility] 2023-06-01 00:00:00 2023-06-01 00:00:00 Outpatient FOG_Brinker _Mark_MD AOSM AOSM [id number] [facility] 2023-06-01 00:00:00 2023-06-01 00:00:00 Outpatient FOG_Brinker _Mark_MD AOSM AOSM [id number] [facility] 2023-06-01 00:00:00 2023-06-01 00:00:00 Outpatient FOG_Brinker _Mark_MD AOSM AOSM [id number] [facility] 2023-06-01 00:00:00 2023-06-01 00:00:00 Outpatient FOG_Calvin _Naren_ AOSM AOSM [id number] [facility] 2023-05-28 13:09:00 2023-05-30 13:47:00 Inpatient Naren Garrett HCAT[facility] SURG [id number] [address] [facility] [place] [facility] 2023-05-30 00:00:00 2023-05-30 00:00:00 Outpatient PAIGE CAVANAUGH [id number] [facility] 2023-05-28 00:00:00 2023-05-28 00:00:00 Outpatient FOG_Calvin Quiroz AOSM AOSM [id number] [facility] 2023-05-27 16:57:00 2023-05-27 16:57:00 Outpatient Naren Simpson HCACL LABO [id number] 77 [facility] 2023-05-27 00:00:00 2023-05-27 00:00:00 Outpatient PAIGE CAVANAUGH [id number] [facility] 2023-05-21 00:00:00 2023-05-21 00:00:00 Outpatient PAIGE CAVANAUGH [id number] [facility] 2023-05-13 00:00:00 2023-05-13 00:00:00 Outpatient FOG_Calvin Quiroz AOSM AOSM [id number] [facility] 2023-05-13 00:00:00 2023-05-13 00:00:00 Outpatient FOG_Calvin Quiroz AOSM AOSM [id number] [facility] 2023-05-12 08:00:00 2023-05-12 23:00:00 Outpatient Naren Garrett HCATO 3DAY [id number] [facility] [place] [facility] 2023-05-09 00:00:00 2023-05-09 00:00:00 Outpatient FOG_Brinker _Naren_MD AOSM AO [id number] [facility] 2023-05-09 00:00:00 2023-05-09 00:00:00 Outpatient FOG_Brinker _Mark_MD AOSM AOSM [id number] [facility] 2023-05-09 00:00:00 2023-05-09 00:00:00 Outpatient FOG_Brjanieer _Naren_ AOSM AOSM [id number] [facility] 2023-05-07 13:20:00 2023-05-07 13:20:00 Outpatient JACOBY COLETTE PAIGE CAVANAUGH [id number] [facility] 2023-05-05 00:00:00 2023-05-05 00:00:00 Outpatient JUAN RAMON HALE [id number] [facility] 2023-05-05 00:00:00 2023-05-05 00:00:00 Outpatient MARIN WEEMS [id number] [facility] 2023-05-01 11:30:00 2023-05-01 11:30:00 Outpatient LIBERTY PAIGE CAVANAUGH [id number] [facility] 2023-05-01 10:30:00 2023-05-01 10:30:00 Outpatient JUAN RAMON HALE [id number] [facility] 2023-04-23 00:00:00 2023-04-23 00:00:00 Outpatient JUAN RAMON HALE [id number] [facility] 2023-04-23 00:00:00 2023-04-23 00:00:00 Outpatient AO_A_Provid er AOSM AO [id number] [facility] 2023-03-12 00:00:00 2023-03-12 00:00:00 Naren Simpson MD: [address] [place] [address] , Ph. [phone] [place] [facility] [place] [facility] [id number] [facility] 2023-03-07 00:00:00 2023-03-07 00:00:00 Outpatient FOG_Brinker _Mark_MD AOSM AO [id number] [facility] 2023-03-07 00:00:00 2023-03-07 00:00:00 Outpatient FOG_Brinker _Mark_MD AOSM AO [id number] [facility] 2023-03-07 00:00:00 2023-03-07 00:00:00 Outpatient FOG_Brinker _Mark_MD AOSM AO [id number] [facility] 2023-03-07 00:00:00 2023-03-07 00:00:00 Naren Simpson MD: [id number] [place] [address] , Ph. [phone] [facility] [place] [facility] [place] [facility] [id number] [facility] 2023-02-19 00:00:00 2023-02-19 00:00:00 Outpatient FOG_Brinker _Naren_ AOSM AO [id number] [facility] 2023-02-07 09:00:00 2023-02-07 09:00:00 Outpatient PAIGE CAVANAUGH [id number] [facility] 2023-02-05 00:00:00 2023-02-05 00:00:00 Outpatient NAREN SIMPSON [id number] [facility] 2023-02-05 00:00:00 2023-02-05 00:00:00 Outpatient NAREN SIMPSON [id number] [facility] 2023-01-20 00:00:00 2023-01-20 00:00:00 Outpatient FOG_Brinker _Mark_ AOSM AO [id number] [facility] 2023-01-20 00:00:00 2023-01-20 00:00:00 [facility] [id number] [facility] 2022-11-27 00:00:00 2022-11-27 00:00:00 Outpatient FOG_Brinker _Zoila AOSM AO [id number] [facility] 2022-11-22 00:00:00 2022-11-22 00:00:00 Outpatient FOG_Brchago _Zoila AO AO [id number] [facility] 2022-11-22 00:00:00 2022-11-22 00:00:00 Naren Simpson MD: [address] [place] [address] , Ph. [phone] [facility] [place] [facility] [place] [facility] FOG_Ofc [address] [id number] [facility] 2022-11-08 09:15:00 2022-11-08 09:15:00 Outpatient VIVEK MARTINEZ [facility] [id number] [facility] 2022-11-06 12:01:00 2022-11-06 12:01:00 Outpatient Lit Sierra HCATO RADI [id number] [address] [facility] 2022-11-06 00:00:00 2022-11-06 00:00:00 Outpatient GINA[facility] [id number] [facility] [facility] 2022-11-06 00:00:00 2022-11-06 00:00:00 Lit London MD: [address] [place] [phone] , Ph. [phone] [place] [facility] [place] [facility] FOG_Ofc [address] [id number] [facility] 2022-10-30 10:44:00 2022-10-30 10:44:00 Outpatient Lit Sierra RADI [id number] [facility] 2022-10-30 00:00:00 2022-10-30 00:00:00 Outpatient FOG[facility]Calvin [facility] [id number] [facility] 2022-10-30 00:00:00 2022-10-30 00:00:00 Lit London MD: [address] [place] [address] , Ph. [phone] [place] [facility] [place] [facility]Ofc [facility] [id number] [facility] 2022-10-30 00:00:00 2022-10-30 00:00:00 Telephone Boy Kathi [facility] 1.840.114 350.1.13.10 4.2.7.2.686 [id number] [facility] 2022-10-29 09:24:55 2022-10-29 23:59:00 Outpatient R KATHI BRUNSON [facility] [id number] [facility] 2022-10-29 09:24:55 2022-10-29 23:59:00 Hospital Encounter Kathi Brunson [facility] 1.84.114 350.1.13.10 4.2.7.2.686 [id number] [facility] 2022-10-29 09:00:00 2022-10-29 09:20:00 Urgent Care Kathi Brunson Unknown, Attending [facility] 1.840.114 350.1.13.10 4.2.7.2.686 [id number] [facility] 2022-10-29 00:00:00 2022-10-29 00:00:00 Orders Only Doctor Unassigned, Vina [facility] 1.84.114 350.1.13.10 4.2.7.2.686 [id number] [facility] 2022-10-17 00:00:00 2022-10-17 00:00:00 Outpatient FOG_Brchago _Zoila AOSM AO [id number] [facility] 2022-09-23 00:00:00 2022-09-23 00:00:00 Outpatient FOG_Brchago _Zoila AOSM AO [id number] [facility] 2022-09-23 00:00:00 2022-09-23 00:00:00 Naren Simpson MD: [address] [place] [address] , Ph. [phone] [place] [facility] [place] [facility] [id number] [facility] 2022-09-05 00:00:00 2022-09-05 00:00:00 Outpatient FOG_Calvin Quiroz AOSM AO [id number] [facility] 2022-08-30 00:00:00 2022-08-30 00:00:00 Outpatient FOG_Calvin Quiroz AOSM AO [id number] [facility] 2022-08-30 00:00:00 2022-08-30 00:00:00 Naren Simpson MD: [address] [place] [phone] , Ph. [phone] [place] [facility] [place] [facility] [id number] [facility] 2022-08-28 00:00:00 2022-08-28 00:00:00 Outpatient FOG_Calvin Quiroz AOSM AO [id number] [facility] 2022-08-25 00:00:00 2022-08-25 00:00:00 Outpatient FOG_Calvin Quiroz AOSM AO [id number] [facility] 2022-08-22 05:51:00 2022-08-24 15:07:00 Outpatient Naren Garrett HCATO OBSE [id number] [facility] 2022-08-22 00:00:00 2022-08-22 00:00:00 Naren Simpson MD: [address] [place] [phone] , Ph. [phone] [place] [facility] [place] [facility] [id number] [facility] 2022-08-19 00:00:00 2022-08-19 00:00:00 Outpatient FOG_Calvin Quiroz AOSM AO [id number] [facility] 2022-08-15 00:00:00 2022-08-15 00:00:00 Outpatient FOG_Calvin Quiroz AOSM AO [id number] [facility] 2022-08-14 16:09:00 2022-08-14 16:09:00 Outpatient Naren Simpson HCACL LABO [id number] [facility] 2022-08-14 08:59:00 2022-08-14 08:59:00 Outpatient Naren Garrett HCATO RADI [id number] [facility] 2022-08-14 00:00:00 2022-08-14 00:00:00 Outpatient FOG_Calvin Quiroz AOSM AO [id number] [facility] 2022-08-14 00:00:00 2022-08-14 00:00:00 Naren Simpson MD: [address] [place] [phone] , Ph. [phone] [place] [facility] [place] [facility] [id number] [facility] 2022-08-09 00:00:00 2022-08-09 00:00:00 Outpatient FOG_Calvin Quiroz AOSM AO [id number] [facility] 2022-08-07 16:02:00 2022-08-07 16:02:00 Outpatient Naren Simpson HCACL LABO [id number] [facility] 2022-08-07 12:55:00 2022-08-07 12:55:00 Outpatient Naren Garrett HCATO LABO [id number] [facility] 2022-08-07 00:00:00 2022-08-07 00:00:00 Outpatient FOG_Calvin _Zoila AOSM AOSM [id number] [facility] 2022-08-07 00:00:00 2022-08-07 00:00:00 Asia Sweeney MD: [address] [place] [phone] , Ph. [phone] [place] [facility] [place] [facility] F[facility] [address] [id number] [facility] 2022-07-17 00:00:00 2022-07-17 00:00:00 Outpatient FOG_Calvin Quiroz AOSM AOSM [id number] [facility] 2022-07-17 00:00:00 2022-07-17 00:00:00 Outpatient Asia Sweeney AOSM AOSM [id number] 2022-07-17 00:00:00 2022-07-17 00:00:00 Outpatient Naren Simpson AOSM AOSM [id number] 2022-07-17 00:00:00 2022-07-17 00:00:00 Asia Sweeney MD: [address] [place] [address] , Ph. [phone] [place] [facility] [place] [facility] [id number] [facility] 2022-07-16 00:00:00 2022-07-16 00:00:00 Outpatient FOG_Calvin Quiroz AOSM AOSM [id number] [facility] 2022-06-26 00:00:00 2022-06-26 00:00:00 Outpatient FOG_Calvin _Zoila AOSM AOSM [id number] [facility] 2022-06-26 00:00:00 2022-06-26 00:00:00 Outpatient Asia Sweeney AOSM AOSM [id number] 2022-06-26 00:00:00 2022-06-26 00:00:00 Asia Sweeney MD: [address] [place] [address] , Ph. [phone] [place] [place] [facility] [place] [facility] [id number] [facility] 2022-06-26 00:00:00 2022-06-26 00:00:00 Outpatient Naren Simpson AOSM AOSM [id number] 2022-06-19 00:00:00 2022-06-19 00:00:00 Outpatient FOG_Calvin Quiroz AOSM AOSM [id number] [facility] 2022-06-12 11:25:00 2022-06-14 19:17:00 Inpatient Naren Garrett HCATO SURG [id number] [facility] [facility] 2022-06-12 11:25:00 2022-06-14 19:17:00 Inpatient Naren Garrett HCATO SURG [id number] [facility] 2022-06-13 00:00:00 2022-06-13 00:00:00 Outpatient FOG_Calvin Quiroz AOSM AOSM [id number] [facility] 2022-06-11 06:12:00 2022-06-11 06:12:00 Outpatient Naren Garrett HCATO OBSE [id number] [facility] 2022-06-11 00:00:00 2022-06-11 00:00:00 Outpatient Naren Simpson AOSM AOSM [id number] 2022-06-11 00:00:00 2022-06-11 00:00:00 Naren Simpson MD: [address] [place] [phone] , Ph. [phone] [place] [place] [facility] [place] [facility] [id number] [facility] 2022-06-10 16:24:00 2022-06-10 16:24:00 Outpatient Naren Simpson HCACL LABO [id number] [facility] 2022-06-10 12:38:00 2022-06-10 12:38:00 Outpatient Naren Garrett HCATO LABO [id number] [facility] 2022-06-10 05:35:00 2022-06-10 05:35:00 Outpatient FOG_Calvin Quiroz AOSM AOSM [id number] [facility] 2022-06-10 00:00:00 2022-06-10 00:00:00 Outpatient Asia Sweeney AOSM AOSM [id number] 2022-06-10 00:00:00 2022-06-10 00:00:00 Outpatient Naren Simpson AOSM AOSM [id number] 2022-06-10 00:00:00 2022-06-10 00:00:00 Asia Sweeney MD: [address] [place] [phone] , Ph. [phone] [place] [place] [facility] [place] [facility] [id number] [facility] 2022-05-22 03:13:00 2022-05-22 03:13:00 Outpatient FOG_Calvin Quiroz AOSM AOSM [id number] [facility] 2022-05-22 00:00:00 2022-05-22 00:00:00 Outpatient Naren Simpson AOSM AOSM [id number] 2022-05-22 00:00:00 2022-05-22 00:00:00 Naren Simpson MD: [address] [place], [place] [address] , Ph. [phone] [place] [place] [facility] [place] [facility] [id number] [facility] 2022-05-14 09:46:00 2022-05-14 09:46:00 Outpatient FOG_Calvin Quiroz AOSM AO [id number] [facility] 2022-05-13 10:51:00 2022-05-13 10:51:00 Outpatient FOG_Calvin Quiroz AOSM AO [id number] [facility] 2022-05-09 06:17:00 2022-05-09 06:17:00 Outpatient Naren Garrett HCATO DAYS [id number] [facility] 2022-05-09 06:17:00 2022-05-09 06:17:00 [facility] [facility] [facility] [id number] [facility] 2022-05-09 00:00:00 2022-05-09 00:00:00 Naren Simpson MD: [address] [place] [address] , Ph. [phone] [place] [place] [facility] [place] [facility] [id number] [facility] 2022-05-09 00:00:00 2022-05-09 00:00:00 Outpatient Naren Simpson AOSM AOSM [id number] 2022-05-08 03:18:00 2022-05-08 03:18:00 Out[facility] FO[facility]uru Hale[facility] [id number] [facility] 2022-05-08 00:00:00 2022-05-08 00:00:00 Naren Simpson MD: [address] [address] , Ph. [phone] [place] [facility] [place] [facility] [id number] [facility] 2022-05-08 00:00:00 2022-05-08 00:00:00 Outpatient Naren Simpson [facility] [id number] 2022-04-10 00:00:00 2022-04-10 00:00:00 Naren Simpson MD: [address] [place] [address] , Ph. [phone] [facility] [place] [facility] [place] [facility]Of[facility] [id number] [facility] 2022-03-07 11:19:00 2022-03-08 17:32:00 Inpatient Naren Garrett HCATO SURG [id number] [facility] [place] [facility] 2022-02-20 15:27:00 2022-02-20 15:27:00 Outpatient Naren Garrett HCATO RADI [id number] [facility] [place] [facility] 2022-02-07 06:12:00 2022-02-07 06:12:00 Outpatient Naren Garrett HCATO DAYS [id number] [facility] [place] [facility] 2021-09-05 08:00:00 2021-09-05 08:00:00 Outpatient Naren Garrett HCATO RADI [id number] [facility] [place] [facility] 2021-05-22 09:20:00 2021-05-24 16:09:00 Outpatient Naren GarrettTO OBSE [id number] [facility] [place] [facility] 2021-05-18 18:15:00 2021-05-18 18:15:00 Outpatient Naren Simpson [facility] [id number] [facility] 2021-05-03 13:40:00 2021-05-03 13:40:00 Outpatient Naren GarrettTO RADI [id number] [facility] 2021-05-03 13:40:00 2021-05-03 13:40:00 Outpatient Naren Garrett HCATO RADI [id number] [facility] 2021-04-25 11:35:00 2021-04-25 11:35:00 Outpatient Naren GarrettTO RADI [id number] [facility] 2021-04-11 16:24:38 2021-04-11 23:59:00 Hospital Encounter Radiology [facility] [id number] 350.1.13.10 [id number] [id number] 2021-04-11 16:24:38 2021-04-11 23:59:00 Hospital Encounter Radiology [facility] [id number] 350.1.13.10 [id number] [id number] [facility] 2021-04-11 00:00:00 2021-04-11 00:00:00 Outpatient R RADIOLOGY [facility] [id number] [facility] 2020-12-26 13:30:00 2020-12-26 13:30:00 Appointmen t; DUSTY DICKERSON P.A. KELLY, JEANA, P.A. [facility] [id number] [place] [facility] 2020-11-14 13:00:00 2020-11-14 13:00:00 Appointmen t; ANGUS VUONG M.D. MUNZ, JOHN, M.D. [facility] [id number] [place] [facility] 2020-11-01 06:57:00 2020-11-01 23:59:00 Outpatient ANGUS VUONG [facility] [id number] [facility] 2020-11-01 07:00:00 2020-11-01 07:00:00 Appointmen t; ANGUS VUONG M.D. MUNZ, JOHN, M.D. [facility] [id number] [place] [facility] 2020-10-17 10:30:00 2020-10-17 10:30:00 Appointmen t; ANGUS VUONG M.D. MUNZ, JOHN, M.D. [facility] Orthopedics Trauma [facility] [id number] [place] [facility] 2020-10-10 10:30:00 2020-10-10 10:30:00 Appointmen t; ANGUS VUONG M.D. MUNZ, JOHN, M.D. [facility] Orthopedics Trauma [facility] [id number] [place] [facility] 2020-10-03 10:30:00 2020-10-03 10:30:00 Appointmen t; ANGUS VUONG M.D. MUNZ, JOHN, M.D. [facility] Orthopedics Trauma [facility] [id number] [place] [facility] 2020-09-26 11:30:00 2020-09-26 11:30:00 Appointmen t; DUSTY DICKERSON P.A. DUSTY DICKERSON, PTierra [facility] [id number] [place] [facility] 2020-09-16 08:00:00 2020-09-16 08:00:00 Appointmen t; LEONCIO VAUGHN M.D. ROUTT, MILTON, M.D. [facility] [id number] [place] [facility] Results Test Description Test Time Test Comments Results Result Co mments Source - CT LOWER EXTRM W/O C [id number] 06:02:[facility] 1955 Sex: M Patient Name: PATY KC Unit No: [id number] EXAMS: CPT CODE: [id number] CT LOWER EXTRM W/O CLT 84533 TECHNIQUE: Volumetric CT data of the left ankle was obtained without use of intravenous contrast. Images were then viewed in the axial, coronal and sagittal planes. CT radiation dose optimization is achieved for this examination by the use of a CT protocol in accordance with ACR practice st andards and adherence to shell mold bonder's recommendations. INDICATION: PAIN COMPARISON: CT dated 03/03/2024 FINDINGS: Postoperative changes of prior TTC arthrodesis again demonstrated with removal of the hardware. An Ilizarov device is now in place. There is minimal fusion of the ankle joint. Solid subtalar fusion is visualized. No acute fracture. Postoperative changes of distal fibular resection. Subcutaneous edema is noted about the ankle/hindfoot. IMPRESSION: Postoperative exam as above. at 0602 Reported and signed by:Faustino Matamoros M.D. CC: Naren Simpson MD Technologist: RT Taty(R) CTDI: DLP: Trnscrpt: 05/13/2024 (0602) [email or web address] [facility] NAME: PATY KC [address] [facility] PHYS: BRIMA.[id number] - Naren Simpson MD : 1955 AGE: 68 SEX: M [place] [address] LOC: Y.RAD PHONE #: [phone] EXAM DATE: 04/28/2024 STATUS: DEP CLI FAX #: [phone] RAD #: D/C DT PAGE 1 Signed Report Patient Name: PATY KC Unit No: [id number] EXAMS: CPT CODE: [id number] CT LOWER EXTRM W/[place] [address] (Continued) Orig Print D/T: S: 05/13/2024 (0605) [facility] NAME: PATY KC [address] [facility] PHYS: BRIMA. - Naren Simpson MD :1955 AGE: 68 SEX: M [place] [address] LOC: Y.RAD PHONE #: [phone] EXAM DATE: 04/28/2024 STATUS: DEP CLI FAX #: [phone] RAD #: D/C DT PAGE 2 Signed ReportBASIC METABOLIC [id number] 07:09:00* Test Item Value Reference Range Interpretation Comme nts SODIUM (test code = NA) 141 mmol/L 136-145 N POTASSIUM (test code = K) 4.3 mmol/L 3.5-5.1 N CHLORIDE (test code = CL) 106.0 mmol/L 98-107 N CARBON DIOXIDE (test code = CO2) 26.9 mmol/L 21-32 N GLUCOSE (test code = GLU) 117 mg/dL 74-106 H BLOOD UREA NITROGEN (test code = BUN) 22 mg/dL 7-18 H GLOMERULAR FILTRATION RATE (test code = GFR) 84.0 >60 The Glomerular Filtration Rate is a calculated parameterbased on serum Creatinine, patient age and sex. GFR valuesless than 60 mL/min/1.73 square meters are indicative ofChronic Kidney Disease. Values less than 15 mL/min/1.73square meters indicate Kidney failure. The calculation forGFR is based on the CKD-EPI (2020) calculation. This formulais race indifferent and is the recommended formula for GFRby the National Kidney Foundation for Adults.The GFR will not calculate if the sex is unknown or if thepatient's age is <18 years. CREATININE (test code = CREAT) 0.97 mg/dL 0.70-1.30 N CALCIUM (test code = CA) 8.6 mg/dL 8.5-10.1 N CBC W/AUTO [id number] 06:00:00* Test Item Value Reference Range Interpretation Comme nts WHITE BLOOD CELL (test code = WBC) 7.2 K/mm3 5.5-11.0 N RED BLOOD CELL (test code = RBC) 4.20 M/mm3 4.2-5.4 N HEMOGLOBIN (test code = HGB) 12.2 g/dL 12-16 N HEMATOCRIT (test code = HCT) 36.5 % 37-47 L MEAN CELL VOLUME (test code = MCV) 87 fL 80-98 N MEAN CELL HGB (test code = MCH) 29.0 pg 27-34 N MEAN CELL HGB CONCENTRATION (test code = MCHC) 33.4 g/dL 30.8-34.1 N RED CELL DISTRIBUTION WIDTH (test code = RDW) 13.6 % 11-16 N PLT (test code = PLT) 197 K/mm3 130-400 N MEAN PLATELET VOLUME (test c ode = MPV) 10.9 fL 8.9-12.1 N NEUTROPHIL % (test code = NT%) 66.7 % 45-70 N LYMPHOCYTE % (test code = LY%) 18.7 % 20-40 L MONOCYTE % (test code = MO%) 10.2 % 3-10 H EOSINOPHIL % (test code = EO%) 3.2 % 1-5 N BASOPHIL % (test code = BA%) 0.6 % 0.0-1.1 N NEUTROPHIL # (test code = NT#) 4.83 K/mm3 2.00-7.50 N LYMPHOCYTE # (test code = LY#) 1.35 K/mm3 1.50-4.00 L MONOCYTE # (test code = MO#) 0.74 K/mm3 0.2-0.8 N EOSINOPHIL # (test code = EO#) 0.23 K/mm3 0.04-0.4 N BASOPHIL # (test code = BA#) 0.04 K/mm3 0.02-0.10 N MANUAL DIFF REQUIRED (test c ode = MDIFF) NO MANUAL DIFF NUCLEATED RED BLOOD CELL (te st code = NRBC) 0 % 0-0 N CBC W Auto Differential panel - [id number] 05:30:00* Test Item Value Reference Range Interpretation Comme nts white blood cell (test code = white blood cell) 7.2 K/mm3 5.5-11.0 red blood cell (test code = red blood cell) 4.20 M/mm3 4.2-5.4 hemoglobin (test code = hemoglobin) 12.2 g/dL 12-16 hematocrit (test code = hematocrit) 36.5 % 37-47 L mean cell volume (test code = mean cell volume) 87 fL 80-98 mean cell HGB (test code = m vijay cell HGB) 29.0 pg 27-34 mean cell HGB concentration (test code = mean cell HGB concentration) 33.4 g/dL 30.8-34.1 red cell distribution width (test code = red cell distribution width) 13.6 % 11-16 plt (test code = plt) 197 K/mm3 130-400 mean platelet volume (test c ode = mean platelet volume) 10.9 fL 8.9-12.1 neutrophil % (test code = neutrophil %) 66.7 % 45-70 lymphocyte % (test code = lymphocyte %) 18.7 % 20-40 L monocyte % (test code = mono cyte %) 10.2 % 3-10 H eosinophil % (test code = eosinophil %) 3.2 % 1-5 basophil % (test code = baso eriberto %) 0.6 % 0.0-1.1 neutrophil # (test code = neutrophil #) 4.83 K/mm3 2.00-7.50 lymphocyte # (test code = lymphocyte #) 1.35 K/mm3 1.50-4.00 L monocyte # (test code = mono cyte #) 0.74 K/mm3 0.2-0.8 eosinophil # (test code = eosinophil #) 0.23 K/mm3 0.04-0.4 basophil # (test code = baso eriberto #) 0.04 K/mm3 0.02-0.10 manual diff required (test c ode = manual diff required) NO manual diff nucleated red blood cell (te st code = nucleated red blood cell) 0 % 0-0 performing lab: (test code = performing lab:) [facility] [id number] 05:30:00* Test Item Value Reference Range Interpretation Comme nts sodium (test code = sodium) 141 mmol/L 136-145 potassium (test code = potassium) 4.3 mmol/L 3.5-5.1 chloride (test code = chloride) 106.0 mmol/L 98-107 carbon dioxide (test code = carbon dioxide) 26.9 mmol/L 21-32 glucose (test code = glucose) 117 mg/dL 74-106 H blood urea nitrogen (test co de = blood urea nitrogen) 22 mg/dL 7-18 H glomerular filtration rate ( test code = glomerular filtration rate) 84.0 >60 creatinine (test code = creatinine) 0.97 mg/dL 0.70-1.30 calcium (test code = calcium) 8.6 mg/dL 8.5-10.1 performing lab: (test code = performing lab:) [facility] [id number] 13:06:00* Test Item Value Reference Range Interpretation Comme nts SODIUM (test code = NA) 141 mmol/L 136-145 N POTASSIUM (test code = K) 4.1 mmol/L 3.5-5.1 N CHLORIDE (test code = CL) 103.0 mmol/L 98-107 N CARBON DIOXIDE (test code = CO2) 27.2 mmol/L 21-32 N GLUCOSE (test code = GLU) 80 mg/dL 74-106 N BLOOD UREA NITROGEN (test code = BUN) 19 mg/dL 7-18 H GLOMERULAR FILTRATION RATE (test code = GFR) 67.1 >60 The Glomerular Filtration Rate is a calculated parameterbased on serum Creatinine, patient age and sex. GFR valuesless than 60 mL/min/1.73 square meters are indicative ofChronic Kidney Disease. Values less than 15 mL/min/1.73square meters indicate Kidney failure. The calculation forGFR is based on the CKD-EPI (2020) calculation. This formulais race indifferent and is the recommended formula for GFRby the National Kidney Foundation for Adults.The GFR will not calculate if the sex is unknown or if thepatient's age is <18 years. CREATININE (test code = CREAT) 1.17 mg/dL 0.70-1.30 N TOTAL PROTEIN (test code = PROT) 6.8 g/dL 6.4-8.2 N ALBUMIN (test code = ALB) 4.7 g/dL 3.2-4.8 Please note new normal range as of March 2024 GLOBULIN (test code = GLOB) 2.1 g/dL 2.2-4.2 CALCIUM (test code = CA) 10.3 mg/dL 8.5-10.1 H BILIRUBIN TOTAL (test code = BILT) 0.30 mg/dL 0.2-1.00 N SGOT/AST (test code = AST) 12.0 U/L 15-37 L SGPT/ALT (test code = ALT) 40.0 U/L 16-63 N ALKALINE PHOSPHATASE TOTAL (test code = ALKP) 85 U/L 46-116 N ALBUMIN/GLOBULIN RATIO (test code = A/G) 2.24 [id number] 13:05:00* Test Item Value Reference Range Interpretation Comme nts GLOBULIN (test code = GLOB) SED [id number] 17:24:00* Test Item Value Reference Range Interpretation Comme [facility] SED RATE (test code = SEDW) 24 mm/hr 0-20 H C REACTIVE [id number] 17:07:00* Test Item Value Reference Range Interpretation Comme nts C REACTIVE PROTEIN (test cod e = CRP) 0.99 mg/dL < 0.3 H PROTHROMBIN [id number] 16:45:00* Test Item Value Reference Range Interpretation Comme nts PROTHROMBIN TIME PATIENT (test code = PTP) 10.6 secs 9.4-12.5 N INTERNATIONAL NORMAL RATIO (test code = INR) 0.99 <2.0 RECOMMENDED THER APEUTIC RANGE FOR ORAL ANTICOAGULANTTREATMENT: CONDITION INRProphylaxis of venous thrombosis in 2.0 - 3.0 high-risk medical or surgical patientsTreatment of venous thrombosis 2.0 - 3.0Prevention of embolism 2.0 - 3.0Prevention of recurrent embolism, or 3.0 - 4.5 patients with mechanical prosthetic intravascular valves IS PATIENT ON ANTICOAGULANTS ? YLIST ANTICOAGULANT/ANTI PLT MEDICATION : AspirinHas Lab been notified if Patient is on Heparin Drip? NOTHROMBOPLASTIN TIME [id number] 16:45:00* Test Item Value Reference Range Interpretation Comme [facility] PTT ACTIVATED (test code = APTT) 36.2 secs 25.1-36.5 N IS PATIENT ON ANTICOAGULANTS ? YLIST ANTICOAGULANT/ANTI PLT MEDICATION : AspirinHas Lab been notified if Patient is on Heparin Drip? NOCBC W/AUTO DIFF 2024-04-28 16:25:00* Test Item Value Reference Range Interpretation Comme nts WHITE BLOOD CELL (test code = WBC) 9.9 K/mm3 5.5-11.0 N RED BLOOD CELL (test code = RBC) 4.81 M/mm3 4.2-5.4 N HEMOGLOBIN (test code = HGB) 14.2 g/dL 12-16 N HEMATOCRIT (test code = HCT) 41.6 % 37-47 N MEAN CELL VOLUME (test code = MCV) 87 fL 80-98 N MEAN CELL HGB (test code = MCH) 29.5 pg 27-34 N MEAN CELL HGB CONCENTRATION (test code = MCHC) 34.1 g/dL 30.8-34.1 N RED CELL DISTRIBUTION WIDTH (test code = RDW) 13.7 % 11-16 N PLT (test code = PLT) 240 K/mm3 130-400 N MEAN PLATELET VOLUME (test c ode = MPV) 10.9 fL 8.9-12.1 N NEUTROPHIL % (test code = NT%) 69.6 % 45-70 N LYMPHOCYTE % (test code = LY%) 19.4 % 20-40 L MONOCYTE % (test code = MO%) 8.8 % 3-10 N EOSINOPHIL % (test code = EO%) 1.5 % 1-5 N BASOPHIL % (test code = BA%) 0.5 % 0.0-1.1 N NEUTROPHIL # (test code = NT#) 6.87 K/mm3 2.00-7.50 N LYMPHOCYTE # (test code = LY#) 1.91 K/mm3 1.50-4.00 N MONOCYTE # (test code = MO#) 0.87 K/mm3 0.2-0.8 H EOSINOPHIL # (test code = EO#) 0.15 K/mm3 0.04-0.4 N BASOPHIL # (test code = BA#) 0.05 K/mm3 0.02-0.10 N MANUAL DIFF REQUIRED (test c ode = MDIFF) NO MANUAL DIFF NUCLEATED RED BLOOD CELL (te st code = NRBC) 0 % 0-0 N CBC W Auto Differential panel - [id number] 15:20:00* Test Item Value Reference Range Interpretation Comme nts white blood cell (test code = white blood cell) 9.9 K/mm3 5.5-11.0 red blood cell (test code = red blood cell) 4.81 M/mm3 4.2-5.4 hemoglobin (test code = hemoglobin) 14.2 g/dL 12-16 hematocrit (test code = hematocrit) 41.6 % 37-47 mean cell volume (test code = mean cell volume) 87 fL 80-98 mean cell HGB (test code = m vijay cell HGB) 29.5 pg 27-34 mean cell HGB concentration (test code = mean cell HGB concentration) 34.1 g/dL 30.8-34.1 red cell distribution width (test code = red cell distribution width) 13.7 % 11-16 plt (test code = plt) 240 K/mm3 130-400 mean platelet volume (test c ode = mean platelet volume) 10.9 fL 8.9-12.1 neutrophil % (test code = neutrophil %) 69.6 % 45-70 lymphocyte % (test code = lymphocyte %) 19.4 % 20-40 L monocyte % (test code = mono cyte %) 8.8 % 3-10 eosinophil % (test code = eosinophil %) 1.5 % 1-5 basophil % (test code = baso eriberto %) 0.5 % 0.0-1.1 neutrophil # (test code = neutrophil #) 6.87 K/mm3 2.00-7.50 lymphocyte # (test code = lymphocyte #) 1.91 K/mm3 1.50-4.00 monocyte # (test code = mono cyte #) 0.87 K/mm3 0.2-0.8 H eosinophil # (test code = eosinophil #) 0.15 K/mm3 0.04-0.4 basophil # (test code = baso eriberto #) 0.05 K/mm3 0.02-0.10 manual diff required (test c ode = manual diff required) NO manual diff nucleated red blood cell (te st code = nucleated red blood cell) 0 % 0-0 performing lab: (test code = performing lab:) [facility]PT[facility]2024-04-28 15:20:00* Test Item Value Reference Range Interpretation Comme nts prothrombin time patient (te st code = prothrombin time patient) 10.6 secs 9.4-12.5 international normal ratio ( test code = international normal ratio) 0.99 <2.0 performing lab: (test code = performing lab:) [facility]alth[facility]in time [id number] 15:20:00 * Test Item Value Reference Range Interpretation Comme nts PTT activated (test code = P TT activated) 36.2 secs 25.1-36.5 performing lab: (test code = performing lab:) [facility] [id number] 15:20:00* Test Item Value Reference Range Interpretation Comme nts C reactive protein (test cod e = C reactive protein) 0.99 mg/dL < 0.3 H performing lab: (test code = performing lab:) [facility] Medicinesed [id number] 15:20:00* Test Item Value Reference Range Interpretation Comme nts sed rate (test code = sed rate) 24 mm/HR 0-20 H performing lab: (test code = performing lab:) [facility] HospitalMethicillin resistant Staphylococcus aureus [Presence] in Specimen by Organism specific [id number] 15:20:00* Test Item Value Reference Range Interpretation Comme nts MRSA surveillance screen (te st code = MRSA surveillance screen) See Below performing lab: (test code = performing lab:) [facility]mss[facility] PCR surveillance [id number] 15:20:00 * Test Item Value Reference Range Interpretation Comme nts mssa PCR surveillance screen (test code = mssa PCR surveillance screen) See Below performing lab: (test code = performing lab:) [facility] HospitalComprehensive [facility] 2000 panel - Serum or [id number] 15:20:00* Test Item Value Reference Range Interpretation Comme nts sodium (test code = sodium) 141 mmol/L 136-145 potassium (test code = potassium) 4.1 mmol/L 3.5-5.1 chloride (test code = chloride) 103.0 mmol/L 98-107 carbon dioxide (test code = carbon dioxide) 27.2 mmol/L 21-32 glucose (test code = glucose) 80 mg/dL 74-106 blood urea nitrogen (test co de = blood urea nitrogen) 19 mg/dL 7-18 H glomerular filtration rate ( test code = glomerular filtration rate) 67.1 >60 creatinine (test code = creatinine) 1.17 mg/dL 0.70-1.30 total protein (test code = t otal protein) 6.8 g/dL 6.4-8.2 albumin (test code = albumin) 4.7 g/dL 3.2-4.8 globulin (test code = globulin) 2.1 albumin/globulin ratio (test code = albumin/globulin ratio) 2.24 calcium (test code = calcium) 10.3 mg/dL 8.5-10.1 H bilirubin total (test code = bilirubin total) 0.30 mg/dL 0.2-1.00 SGOT/AST (test code = SGOT/AST) 12.0 U/L 15-37 L SGPT/ALT (test code = SGPT/ALT) 40.0 U/L 16-63 alkaline phosphatase total ( test code = alkaline phosphatase total) 85 U/L 46-116 performing lab: (test code = performing lab:) [facility] LOWER EXTRM W/O C [id number] 12:54:00 [facility] 1955 Sex: M Patient Name: PATY KC Unit No: [id number] EXAMS: CPT CODE: [id number] CT LOWER EXTRM W/[place] [address] CT OF THE LEFT ANKLE WITH SAGITTAL AND CORONAL RECONSTRUCTIONS DIAGNOSIS: Comparison is made with previous examination of December 29, 2023. An Ilizarov frame is present. There is one possible area of early fusion in the central portion of the fusion. No definite areas of healing are seen.COMMENT: COMPARISON: December 29, 2023 Scans were performed with thin sections and reconstructions were obtained. CT radiation dose optimization is achieved for this examination by the use of a CT protocol in accordance with ACR practice standards and adherence to shell mold bonder's recommendations. The patient is status post partial fibulectomy. An Ilizarov frame is present. No definite fusion of the ankle is seen. at 1254 Reported and signed by: Zack Smith MD CC: Naren Simpson MD Technologist: Andres Boggs,RT(R)CTDI: DLP: Trnscrpt: 03/03/2024 (1254) ShrutiJCL [facility] NAME: PATY KC [address] PHYS: [email or web address].01 - Naren Simpson R MD : 1955 AGE: 68 SEX: M [place], [place] [address] LOC: Y.RAD PHONE #: [phone] EXAM DATE: 03/03/2024 STATUS: REG CLI FAX #: [phone] RAD #: D/C DT PAGE 1 Signed Report Patient Name: PATY KC Unit No: [id number] EXAMS: CPT CODE: [id number] CT LOWER EXTRM W/[place] [address] (Continued) Orig Print D/T: S: 03/03/2024 (1258) [facility] NAME: PATY KC [address] [facility] PHYS: HARSHALShannon Naren Capone MD : 1955 AGE: 68 SEX: M [place], [place] [address] LOC: Y.RADPHONE #: [phone] EXAM DATE: 03/03/2024 STATUS: REG CLI FAX #: [phone] RAD #: D/C DT PAGE2 Signed Report SED [id number] 18:03:00* Test Item Value Reference Range Interpretation Comme nts SED RATE (test code = SEDW) 15 mm/hr 0-20 N COMPREHENSIVE METABOLIC [id number] 17:30:00* Test Item Value Reference Range Interpretation Comme nts SODIUM (test code = NA) 142 mmol/L 136-145 N POTASSIUM (test code = K) 4.1 mmol/L 3.5-5.1 N CHLORIDE (test code = CL) 102.0 mmol/L 98-107 N CARBON DIOXIDE (test code = CO2) 28.5 mmol/L 21-32 N GLUCOSE (test code = GLU) 98 mg/dL 74-106 N BLOOD UREA NITROGEN (test code = BUN) 23 mg/dL 7-18 H GLOMERULAR FILTRATION RATE (test code = GFR) 72.2 >60 The Glomerular Filtration Rate is a calculated parameterbased on serum Creatinine, patient age and sex. GFR valuesless than 60 mL/min/1.73 square meters are indicative ofChronic Kidney Disease. Values less than 15 mL/min/1.73square meters indicate Kidney failure. The calculation forGFR is based on the CKD-EPI (202) calculation. This formulais race indifferent and is the recommended formula for GFRby the National Kidney Foundation for Adults.The GFR will not calculate if the sex is unknown or if thepatient's age is <18 years. CREATININE (test code = CREAT) 1.10 mg/dL 0.70-1.30 N TOTAL PROTEIN (test code = PROT) 6.8 g/dL 6.4-8.2 N ALBUMIN (test code = ALB) 3.6 g/dL 3.4-5.0 N GLOBULIN (test code = GLOB) 3.2 g/dL 2.2-4.2 N ALBUMIN/GLOBULIN RATIO (test code = A/G) 1.1 0.7-2.0 N CALCIUM (test code = CA) 9.0 mg/dL 8.5-10.1 N BILIRUBIN TOTAL (test code = BILT) 0.10 mg/dL 0.2-1.00 L SGOT/AST (test code = AST) 20.0 U/L 15-37 N SGPT/ALT (test code = ALT) 32.0 U/L 16-63 N ALKALINE PHOSPHATASE TOTAL (test code = ALKP) 86 U/L 46-116 N PROTHROMBIN [id number] 17:28:00* Test Item Value Reference Range Interpretation Comme nts PROTHROMBIN TIME PATIENT (test code = PTP) 11.0 secs 9.4-12.5 N INTERNATIONAL NORMAL RATIO (test code = INR) 0.98 <2.0 RECOMMENDED THER APEUTIC RANGE FOR ORAL ANTICOAGULANTTREATMENT: CONDITION INRProphylaxis of venous thrombosis in 2.0 - 3.0 high-risk medical or surgical patientsTreatment of venous thrombosis 2.0 - 3.0Prevention of embolism 2.0 - 3.0Prevention of recurrent embolism, or 3.0 - 4.5 patients with mechanical prosthetic intravascular valves IS PATIENT ON ANTICOAGULANTS ? YLIST ANTICOAGULANT/ANTI PLT MEDICATION : AspirinHas Lab been notified if Patient is on Heparin Drip? NOTHROMBOPLASTIN TIME [id number] 17:28:00* Test Item Value Reference Range Interpretation Comme nts PTT ACTIVATED (test code = APTT) 32.0 secs 25.1-36.5 N IS PATIENT ON ANTICOAGULANTS ? YLIST ANTICOAGULANT/ANTI PLT MEDICATION : AspirinHas Lab been notified if Patient is on Heparin Drip? NOC REACTIVE PROTEIN 2023-12-29 17:28:00* Test Item Value Reference Range Interpretation Comme nts C REACTIVE PROTEIN (test cod e = CRP) 0.48 mg/dL < 0.3 H CBC W/AUTO [id number] 17:05:00* Test Item Value Reference Range Interpretation Comme nts WHITE BLOOD CELL (test code = WBC) 11.0 K/mm3 5.5-11.0 N RED BLOOD CELL (test code = RBC) 4.95 M/mm3 4.2-5.4 N HEMOGLOBIN (test code = HGB) 14.1 g/dL 12-16 N HEMATOCRIT (test code = HCT) 42.4 % 37-47 N MEAN CELL VOLUME (test code = MCV) 86 fL 80-98 N MEAN CELL HGB (test code = MCH) 28.5 pg 27-34 N MEAN CELL HGB CONCENTRATION (test code = MCHC) 33.3 g/dL 30.8-34.1 N RED CELL DISTRIBUTION WIDTH (test code = RDW) 13.8 % 11-16 N PLT (test code = PLT) 250 K/mm3 130-400 N MEAN PLATELET VOLUME (test c ode = MPV) 10.2 fL 8.9-12.1 N NEUTROPHIL % (test code = NT%) 71.8 % 45-70 H LYMPHOCYTE % (test code = LY%) 19.9 % 20-40 L MONOCYTE % (test code = MO%) 6.4 % 3-10 N EOSINOPHIL % (test code = EO%) 1.0 % 1-5 N BASOPHIL % (test code = BA%) 0.5 % 0.0-1.1 N NEUTROPHIL # (test code = NT#) 7.93 K/mm3 2.00-7.50 H LYMPHOCYTE # (test code = LY#) 2.20 K/mm3 1.50-4.00 N MONOCYTE # (test code = MO#) 0.71 K/mm3 0.2-0.8 N EOSINOPHIL # (test code = EO#) 0.11 K/mm3 0.04-0.4 N BASOPHIL # (test code = BA#) 0.05 K/mm3 0.02-0.10 N MANUAL DIFF REQUIRED (test c ode = MDIFF) NO MANUAL DIFF NUCLEATED RED BLOOD CELL (te st code = NRBC) 0 % 0-0 N CBC W Auto Differential panel - [id number] 16:50:00* Test Item Value Reference Range Interpretation Comme nts white blood cell (test code = white blood cell) 11.0 K/mm3 5.5-11.0 red blood cell (test code = red blood cell) 4.95 M/mm3 4.2-5.4 hemoglobin (test code = hemoglobin) 14.1 g/dL 12-16 hematocrit (test code = hematocrit) 42.4 % 37-47 mean cell volume (test code = mean cell volume) 86 fL 80-98 mean cell HGB (test code = m vijay cell HGB) 28.5 pg 27-34 mean cell HGB concentration (test code = mean cell HGB concentration) 33.3 g/dL 30.8-34.1 red cell distribution width (test code = red cell distribution width) 13.8 % 11-16 plt (test code = plt) 250 K/mm3 130-400 mean platelet volume (test c ode = mean platelet volume) 10.2 fL 8.9-12.1 neutrophil % (test code = neutrophil %) 71.8 % 45-70 H lymphocyte % (test code = lymphocyte %) 19.9 % 20-40 L monocyte % (test code = mono cyte %) 6.4 % 3-10 eosinophil % (test code = eosinophil %) 1.0 % 1-5 basophil % (test code = baso eriberto %) 0.5 % 0.0-1.1 neutrophil # (test code = neutrophil #) 7.93 K/mm3 2.00-7.50 H lymphocyte # (test code = lymphocyte #) 2.20 K/mm3 1.50-4.00 monocyte # (test code = mono cyte #) 0.71 K/mm3 0.2-0.8 eosinophil # (test code = eosinophil #) 0.11 K/mm3 0.04-0.4 basophil # (test code = baso eriberto #) 0.05 K/mm3 0.02-0.10 manual diff required (test c ode = manual diff required) no manual diff nucleated red blood cell (te st code = nucleated red blood cell) 0 % 0-0 performing lab: (test code = performing lab:) [facility]Pro[facility] (PT)2023-12-29 16:50:00* Test Item Value Reference Range Interpretation Comme nts prothrombin time patient (te st code = prothrombin time patient) 11.0 secs 9.4-12.5 international normal ratio ( test code = international normal ratio) 0.98 <2.0 performing lab: (test code = performing lab:) [facility]althromboplastin time [id number] 16:50:00 * Test Item Value Reference Range Interpretation Comme nts PTT activated (test code = P TT activated) 32.0 secs 25.1-36.5 performing lab: (test code = performing lab:) [facility]C reactive [id number] 16:50:00* Test Item Value Reference Range Interpretation Comme nts C reactive protein (test cod e = C reactive protein) 0.48 mg/dL < 0.3 H performing lab: (test code = performing lab:) [facility] HospitalComprehensive [facility] 2000 panel - Serum or [id number] 16:50:00* Test Item Value Reference Range Interpretation Comme nts sodium (test code = sodium) 142 mmol/L 136-145 potassium (test code = potassium) 4.1 mmol/L 3.5-5.1 chloride (test code = chloride) 102.0 mmol/L 98-107 carbon dioxide (test code = carbon dioxide) 28.5 mmol/L 21-32 glucose (test code = glucose) 98 mg/dL 74-106 blood urea nitrogen (test co de = blood urea nitrogen) 23 mg/dL 7-18 H glomerular filtration rate ( test code = glomerular filtration rate) 72.2 >60 creatinine (test code = creatinine) 1.10 mg/dL 0.70-1.30 total protein (test code = t otal protein) 6.8 g/dL 6.4-8.2 albumin (test code = albumin) 3.6 g/dL 3.4-5.0 globulin (test code = globulin) 3.2 g/dL 2.2-4.2 albumin/globulin ratio (test code = albumin/globulin ratio) 1.1 0.7-2.0 calcium (test code = calcium) 9.0 mg/dL 8.5-10.1 bilirubin total (test code = bilirubin total) 0.10 mg/dL 0.2-1.00 L SGOT/AST (test code = SGOT/AST) 20.0 U/L 15-37 SGPT/ALT (test code = SGPT/ALT) 32.0 U/L 16-63 alkaline phosphatase total ( test code = alkaline phosphatase total) 86 U/L 46-116 performing lab: (test code = performing lab:) [facility] Birminghamed [id number] 16:50:00* Test Item Value Reference Range Interpretation Comme nts sed rate (test code = sed rate) 15 mm/HR 0-20 performing lab: (test code = performing lab:) [facility] W/O C [id number] 12:52:00 [facility] 1955 Sex: M Patient Name: PATY KC Unit No: [id number] EXAMS: CPT CODE: [id number] CT LOWER EXTRM W/[place] [address] CT OF THE LEFT ANKLE WITH SAGITTAL AND CORONAL RECONSTRUCTIONS DIAGNOSIS: Comparison is made with the previous examination of July 28, 2023. On the current examination and Ilizarov frame has been placed in the tibiotalar joint has been revised. There is 1 small possible area of fusion centrally on the medial side. The fibula is unchanged in appearance. COMMENT: COMPARISON: July 28, 2023 Scans were performed with thin sections and reconstructions were obtained. CT radiation dose optimization is achieved for this examination by the use of a CT protocol in accordance with ACR practice standards and adherence to shell mold bonder's recommendations. Postsurgical changes are as noted. There is a small area of possible early fusion. at 1252 Reported and signed by: Zack Smith MD CC: Naren Simpsno MD Technologist: Andres Boggs,RT(R) CTDI: DLP: Trnscrpt: 12/29/2023 (1252) [email or web address] [facility] NAME: PATY KC [address] [facility] PHYS: BRIMA. - Naren Simpson MD : 1955 AGE: 68 SEX: M [place] [address] LOC: Y.RAD PHONE #: [phone] EXAM DATE: 12/29/2023 STATUS: REG CLI FAX #: [phone] RAD #: D/C DT PAGE 1 Signed Report Patient Name: PATY KC Unit No: [id number] EXAMS: CPT CODE: [id number] CT LOWER EXTRM W/[place] [address] (Continued) Orig Print D/T: S: 12/29/2023 (1255) [facility] NAME: PATY KC [address] [facility] PHYS: BRIMA. - Naren Simpson MD : 1955 AGE: 68 SEX: M [place] [address] LOC: Y.RAD PHONE #: [phone] EXAM DATE: 12/29/2023 STATUS: REG CLI FAX #: [phone] RAD #: D/C DT PAGE 2 Signed ReportCREATINE KINASE (CK)2023-09-07 06:47:00* Test Item Value Reference Range Interpretation Comme nts CREATINE KINASE (CK) (test c ode = CK) 184 Units/L 26-192 CREATINE KINASE (CK)2023-09-07 06:47:00* Test Item Value Reference Range Interpretation Comme nts CREATINE KINASE (CK) (test c ode = CK) 184 Units/L 26-192 N Creatine kinase [Enzymatic activity/volume] in Serum or [id number] 03:50:00* Test Item Value Reference Range Interpretation Comme nts creatine kinase (CK) (test c ode = creatine kinase (CK)) 184 units/L 26-192 performing lab: (test code = performing lab:) [facility]CRE[facility] K[facility] (CK)2023-09-06 10:25:00* Test Item Value Reference Range Interpretation Comme nts CREATINE KINASE (CK) (test c ode = CK) 525 Units/L 26-192 H CREATINE KINASE (CK)2023-09-06 10:25:00* Test Item Value Reference Range Interpretation Comme nts CREATINE KINASE (CK) (test c ode = CK) 525 Units/L 26-192 H Creatine kinase [Enzymatic activity/volume] in Serum or [id number] 04:20:00* Test Item Value Reference Range Interpretation Comme nts creatine kinase (CK) (test c ode = creatine kinase (CK)) 525 units/L 26-192 H performing lab: (test code = performing lab:) [facility] HospitalBASIC METABOLIC [id number] 06:28:00* Test Item Value Reference Range Interpretation Comme nts SODIUM (test code = NA) 140 mmol/L 136-145 N POTASSIUM (test code = K) 4.3 mmol/L 3.5-5.1 N CHLORIDE (test code = CL) 102.0 mmol/L 98-107 N CARBON DIOXIDE (test code = CO2) 27.6 mmol/L 21-32 N GLUCOSE (test code = GLU) 91 mg/dL 74-106 N BLOOD UREA NITROGEN (test code = BUN) 19 mg/dL 7-18 H GLOMERULAR FILTRATION RATE (test code = GFR) 69.6 >60 The Glomerular Filtration Rate is a calculated parameterbased on serum Creatinine, patient age and sex. GFR valuesless than 60 mL/min/1.73 square meters are indicative ofChronic Kidney Disease. Values less than 15 mL/min/1.73square meters indicate Kidney failure. The calculation forGFR is based on the CKD-EPI (2020) calculation. This formulais race indifferent and is the recommended formula for GFRby the National Kidney Foundation for Adults.The GFR will not calculate if the sex is unknown or if thepatient's age is <18 years. CREATININE (test code = CREAT) 1.14 mg/dL 0.70-1.30 N CALCIUM (test code = CA) 9.0 mg/dL 8.5-10.1 N CBC W/AUTO [id number] 05:52:00* Test Item Value Reference Range Interpretation Comme nts WHITE BLOOD CELL (test code = WBC) 13.8 K/mm3 5.5-11.0 H Please note new normal range. RED BLOOD CELL (test code = RBC) 4.54 M/mm3 4.2-5.4 N HEMOGLOBIN (test code = HGB) 13.4 g/dL 12-16 N HEMATOCRIT (test code = HCT) 40.3 % 37-47 N MEAN CELL VOLUME (test code = MCV) 89 fL 80-98 N MEAN CELL HGB (test code = MCH) 29.5 pg 27-34 N MEAN CELL HGB CONCENTRATION (test code = MCHC) 33.3 g/dL 30.8-34.1 N RED CELL DISTRIBUTION WIDTH (test code = RDW) 13.3 % 11-16 N PLT (test code = PLT) 207 K/mm3 130-400 N MEAN PLATELET VOLUME (test code = MPV) 10.9 fL 8.9-12.1 N NEUTROPHIL % (test code = NT%) 84.7 % 45-70 H LYMPHOCYTE % (test code = LY%) 5.6 % 20-40 L MONOCYTE % (test code = MO%) 8.9 % 3-10 N EOSINOPHIL % (test code = EO%) 0.1 % 1-5 L BASOPHIL % (test code = BA%) 0.3 % 0.0-1.1 N NEUTROPHIL # (test code = NT#) 11.67 K/mm3 2.00-7.50 H LYMPHOCYTE # (test code = LY#) 0.77 K/mm3 1.50-4.00 L MONOCYTE # (test code = MO#) 1.23 K/mm3 0.2-0.8 H EOSINOPHIL # (test code = EO#) 0.01 K/mm3 0.04-0.4 L BASOPHIL # (test code = BA#) 0.04 K/mm3 0.02-0.10 N MANUAL DIFF REQUIRED (test code = MDIFF) NO MANUAL DIFF NUCLEATED RED BLOOD CELL (test code = NRBC) 0 % 0-0 N CBC W Auto Differential panel - [id number] 04:08:00* Test Item Value Reference Range Interpretation Comme nts white blood cell (test code = white blood cell) 13.8 K/mm3 5.5-11.0 H red blood cell (test code = red blood cell) 4.54 M/mm3 4.2-5.4 hemoglobin (test code = hemoglobin) 13.4 g/dL 12-16 hematocrit (test code = hematocrit) 40.3 % 37-47 mean cell volume (test code = mean cell volume) 89 fL 80-98 mean cell HGB (test code = m vijay cell HGB) 29.5 pg 27-34 mean cell HGB concentration (test code = mean cell HGB concentration) 33.3 g/dL 30.8-34.1 red cell distribution width (test code = red cell distribution width) 13.3 % 11-16 plt (test code = plt) 207 K/mm3 130-400 mean platelet volume (test c ode = mean platelet volume) 10.9 fL 8.9-12.1 neutrophil % (test code = neutrophil %) 84.7 % 45-70 H lymphocyte % (test code = lymphocyte %) 5.6 % 20-40 L monocyte % (test code = mono cyte %) 8.9 % 3-10 eosinophil % (test code = eosinophil %) 0.1 % 1-5 L basophil % (test code = baso eriberto %) 0.3 % 0.0-1.1 neutrophil # (test code = neutrophil #) 11.67 K/mm3 2.00-7.50 H lymphocyte # (test code = lymphocyte #) 0.77 K/mm3 1.50-4.00 L monocyte # (test code = mono cyte #) 1.23 K/mm3 0.2-0.8 H eosinophil # (test code = eosinophil #) 0.01 K/mm3 0.04-0.4 L basophil # (test code = baso eriberto #) 0.04 K/mm3 0.02-0.10 manual diff required (test c ode = manual diff required) no manual diff nucleated red blood cell (te st code = nucleated red blood cell) 0 % 0-0 performing lab: (test code = performing lab:) [facility] metabolic [id number] 04:08:00* Test Item Value Reference Range Interpretation Comme nts sodium (test code = sodium) 140 mmol/L 136-145 potassium (test code = potassium) 4.3 mmol/L 3.5-5.1 chloride (test code = chloride) 102.0 mmol/L 98-107 carbon dioxide (test code = carbon dioxide) 27.6 mmol/L 21-32 glucose (test code = glucose) 91 mg/dL 74-106 blood urea nitrogen (test co de = blood urea nitrogen) 19 mg/dL 7-18 H glomerular filtration rate ( test code = glomerular filtration rate) 69.6 >60 creatinine (test code = creatinine) 1.14 mg/dL 0.70-1.30 calcium (test code = calcium) 9.0 mg/dL 8.5-10.1 performing lab: (test code = performing lab:) [facility] Medicine[facility] [id number] 18:04:00* Test Item Value Reference Range Interpretation Comme nts SED RATE (test code = SEDW) 6 mm/hr 0-20 N C REACTIVE [id number] 17:53:00* Test Item Value Reference Range Interpretation Comme nts C REACTIVE PROTEIN (test code = CRP) 0.20 mg/dL < 0.3 N Please note ne w normal range. COMPREHENSIVE METABOLIC [id number] 17:29:00* Test Item Value Reference Range Interpretation Comme nts SODIUM (test code = NA) 140 mmol/L 136-145 N POTASSIUM (test code = K) 4.0 mmol/L 3.5-5.1 N CHLORIDE (test code = CL) 103.0 mmol/L 98-107 N CARBON DIOXIDE (test code = CO2) 28.3 mmol/L 21-32 N GLUCOSE (test code = GLU) 104 mg/dL 74-106 N BLOOD UREA NITROGEN (test code = BUN) 20 mg/dL 7-18 H GLOMERULAR FILTRATION RATE (test code = GFR) 67.5 >60 The Glomerular Filtration Rate is a calculated parameterbased on serum Creatinine, patient age and sex. GFR valuesless than 60 mL/min/1.73 square meters are indicative ofChronic Kidney Disease. Values less than 15 mL/min/1.73square meters indicate Kidney failure. The calculation forGFR is based on the CKD-EPI (2020) calculation. This formulais race indifferent and is the recommended formula for GFRby the National Kidney Foundation for Adults.The GFR will not calculate if the sex is unknown or if thepatient's age is <18 years. CREATININE (test code = CREAT) 1.17 mg/dL 0.70-1.30 N TOTAL PROTEIN (test code = PROT) 7.1 g/dL 6.4-8.2 N ALBUMIN (test code = ALB) 3.8 g/dL 3.4-5.0 N GLOBULIN (test code = GLOB) 3.3 g/dL 2.2-4.2 N ALBUMIN/GLOBULIN RATIO (test code = A/G) 1.2 0.7-2.0 N CALCIUM (test code = CA) 10.0 mg/dL 8.5-10.1 N BILIRUBIN TOTAL (test code = BILT) 0.30 mg/dL 0.2-1.00 N SGOT/AST (test code = AST) 22.0 U/L 15-37 N SGPT/ALT (test code = ALT) 30.0 U/L 16-63 N ALKALINE PHOSPHATASE TOTAL (test code = ALKP) 79 U/L 46-116 N PROTHROMBIN [id number] 17:27:00* Test Item Value Reference Range Interpretation Comme nts PROTHROMBIN TIME PATIENT (test code = PTP) 11.1 secs 9.4-12.5 N INTERNATIONAL NORMAL RATIO (test code = INR) 0.99 <2.0 RECOMMENDED THER APEUTIC RANGE FOR ORAL ANTICOAGULANTTREATMENT: CONDITION INRProphylaxis of venous thrombosis in 2.0 - 3.0 high-risk medical or surgical patientsTreatment of venous thrombosis 2.0 - 3.0Prevention of embolism 2.0 - 3.0Prevention of recurrent embolism, or 3.0 - 4.5 patients with mechanical prosthetic intravascular valves IS PATIENT ON ANTICOAGULANTS ? YLIST ANTICOAGULANT/ANTI PLT MEDICATION : AspirinHas Lab been notified if Patient is on Heparin Drip? NOTHROMBOPLASTIN TIME [id number] 17:27:00* Test Item Value Reference Range Interpretation Comme nts PTT ACTIVATED (test code = APTT) 33.2 secs 25.1-36.5 N IS PATIENT ON ANTICOAGULANTS ? YLIST ANTICOAGULANT/ANTI PLT MEDICATION : AspirinHas Lab been notified if Patient is on Heparin Drip? NOCBC W/AUTO DIFF 2023-07-30 17:21:00* Test Item Value Reference Range Interpretation Comme nts WHITE BLOOD CELL (test code = WBC) 8.7 K/mm3 5.5-11.0 N Please note new normal range. RED BLOOD CELL (test code = RBC) 4.89 M/mm3 4.2-5.4 N HEMOGLOBIN (test code = HGB) 14.4 g/dL 12-16 N HEMATOCRIT (test code = HCT) 42.3 % 37-47 N MEAN CELL VOLUME (test code = MCV) 87 fL 80-98 N MEAN CELL HGB (test code = MCH) 29.4 pg 27-34 N MEAN CELL HGB CONCENTRATION (test code = MCHC) 34.0 g/dL 30.8-34.1 N RED CELL DISTRIBUTION WIDTH (test code = RDW) 13.8 % 11-16 N PLT (test code = PLT) 195 K/mm3 130-400 N MEAN PLATELET VOLUME (test code = MPV) 11.2 fL 8.9-12.1 N NEUTROPHIL % (test code = NT%) 70.5 % 45-70 H LYMPHOCYTE % (test code = LY%) 21.0 % 20-40 N MONOCYTE % (test code = MO%) 6.2 % 3-10 N EOSINOPHIL % (test code = EO%) 1.4 % 1-5 N BASOPHIL % (test code = BA%) 0.7 % 0.0-1.1 N NEUTROPHIL # (test code = NT#) 6.10 K/mm3 2.00-7.50 N LYMPHOCYTE # (test code = LY#) 1.82 K/mm3 1.50-4.00 N MONOCYTE # (test code = MO#) 0.54 K/mm3 0.2-0.8 N EOSINOPHIL # (test code = EO#) 0.12 K/mm3 0.04-0.4 N BASOPHIL # (test code = BA#) 0.06 K/mm3 0.02-0.10 N MANUAL DIFF REQUIRED (test code = MDIFF) NO MANUAL DIFF NUCLEATED RED BLOOD CELL (test code = NRBC) 0 % 0-0 N - CT LOWER EXTRM W/O C [id number] 14:46:00 [facility] 1955 Sex: M Patient Name: PATY KC Unit No: [id number] EXAMS: CPT CODE: [id number] CT LOWER EXTRM W/O CLT 16594 TECHNIQUE: Volumetric CT data of the left leg was obtained without use of intravenous contrast. Images were then viewed in the axial, coronal and sagittal planes. CT radiation dose optimization is achieved for this examination by the use of a CT protocol in accordance with ACR practice standards and adherence to shell mold bonder's recommendations. INDICATION: LEFT ANKLE TO INCLUDE CALCANEUSCOMPARISON: CT dated 08/14/2022 FINDINGS: Prior hardware has been removed with residual lucency. There is solid fusion of the subtalar joint. No ankle joint effusion is present. Marked ankle joint degenerative changes are noted. Distal fibular resection is present. Soft tissue swelling is noted diff usely. IMPRESSION: Interval hardware removal with solid fusion of the subtalar joint. at 1446 Reported and signed by: Faustino Zambrano M.D. CC: Naren Simpson MD Technologist: Andres Boggs,(R) CTDI: DLP: Trnscrpt: 07/30/2023 (1446) tJEFFREYSLJ [facility] NAME: PATY KC [address] PHYS: BRIMA. - Naren Simpson MD : 1955 AGE: 67 SEX: M [place], [place] [address] LOC: Y.RAD PHONE #: [phone] EXAM DATE: 07/28/2023 STATUS: DEP CLI FAX #: [phone] RAD #: D/CDT PAGE 1 Signed Report Patient Name: PATY KC Unit No: [id number] EXAMS: CPT CODE: [id number] CT LOWER EXTRM [place] [address] (Continued) Orig Print D/T: S: 07/30/2023 (1449) [facility] NAME: PATY KC [address] [facility] PHYS: [email or web address].01 - Naren Simpson MD : 1955 AGE: 67 SEX: M [place], [place] [address] LOC: Y.RAD PHONE #: [phone] EXAM DATE: 07/28/2023 STATUS: DEP CLI FAX #: [phone] RAD #: D/C DT PAGE 2 Signed ReportCREATINE KINASE (CK)2023-05-30 11:42:00* Test Item Value Reference Range Interpretation Comme nts CREATINE KINASE (CK) (test c ode = CK) 104 Units/L 26-192 CREATINE KINASE (CK)2023-05-30 11:41:00* Test Item Value Reference Range Interpretation Comme nts CREATINE KINASE (CK) (test c ode = CK) 104 Units/L 26-192 N BASIC METABOLIC [id number] 06:35:00* Test Item Value Reference Range Interpretation Comme nts SODIUM (test code = NA) 139 mmol/L 136-145 N POTASSIUM (test code = K) 4.5 mmol/L 3.5-5.1 N CHLORIDE (test code = CL) 102.0 mmol/L 98-107 N CARBON DIOXIDE (test code = CO2) 26.6 mmol/L 21-32 N GLUCOSE (test code = GLU) 106 mg/dL 70-110 N BLOOD UREA NITROGEN (test code = BUN) 21 mg/dL 7-18 H GLOMERULAR FILTRATION RATE (test code = GFR) 75.1 >60 The Glomerular Filtration Rate is a calculated parameterbased on serum Creatinine, patient age and sex. GFR valuesless than 60 mL/min/1.73 square meters are indicative ofChronic Kidney Disease. Values less than 15 mL/min/1.73square meters indicate Kidney failure. The calculation forGFR is based on the CKD-EPI (2020) calculation. This formulais race indifferent and is the recommended formula for GFRby the National Kidney Foundation for Adults.The GFR will not calculate if the sex is unknown or if thepatient's age is <18 years. CREATININE (test code = CREAT) 1.07 mg/dL 0.55-1.30 N CALCIUM (test code = CA) 8.6 mg/dL 8.2-10.1 N CBC W/AUTO [id number] 06:05:00* Test Item Value Reference Range Interpretation Comme nts WHITE BLOOD CELL (test code = WBC) 10.9 K/mm3 5.7-10.5 H RED BLOOD CELL (test code = RBC) 4.56 M/mm3 4.2-5.4 N HEMOGLOBIN (test code = HGB) 13.1 g/dL 12-16 N HEMATOCRIT (test code = HCT) 39.9 % 37-47 N MEAN CELL VOLUME (test code = MCV) 88 fL 80-98 N MEAN CELL HGB (test code = MCH) 28.7 pg 27-34 N MEAN CELL HGB CONCENTRATION (test code = MCHC) 32.8 g/dL 30.8-34.1 N RED CELL DISTRIBUTION WIDTH (test code = RDW) 13.3 % 11-16 N PLT (test code = PLT) 185 K/mm3 130-400 N MEAN PLATELET VOLUME (test c ode = MPV) 10.8 fL 8.9-12.1 N NEUTROPHIL % (test code = NT%) 83.5 % 45-70 H LYMPHOCYTE % (test code = LY%) 6.1 % 20-40 L MONOCYTE % (test code = MO%) 9.6 % 3-10 N EOSINOPHIL % (test code = EO%) 0.1 % 1-5 L BASOPHIL % (test code = BA%) 0.3 % 0.0-1.1 N NEUTROPHIL # (test code = NT#) 9.14 K/mm3 2.00-7.50 H LYMPHOCYTE # (test code = LY#) 0.67 K/mm3 1.50-4.00 L MONOCYTE # (test code = MO#) 1.05 K/mm3 0.2-0.8 H EOSINOPHIL # (test code = EO#) 0.01 K/mm3 0.04-0.4 L BASOPHIL # (test code = BA#) 0.03 K/mm3 0.02-0.10 N MANUAL DIFF REQUIRED (test c ode = MDIFF) NO MANUAL DIFF NUCLEATED RED BLOOD CELL (te st code = NRBC) 0 % 0-0 N SED [id number] 21:08:00* Test Item Value Reference Range Interpretation Comme nts SED RATE (test code = SEDW) 20 mm/hr 0-20 N C REACTIVE [id number] 20:22:00* Test Item Value Reference Range Interpretation Comme nts C REACTIVE PROTEIN (test cod e = CRP) < 0.2 mg/dL <0.9 PROTHROMBIN [id number] 20:03:00* Test Item Value Reference Range Interpretation Comme nts PROTHROMBIN TIME PATIENT (test code = PTP) 11.2 secs 9.4-12.5 N Please note new normal range. INTERNATIONAL NORMAL RATIO (test code = INR) 1.00 <2.0 RECOMMENDED THER APEUTIC RANGE FOR ORAL ANTICOAGULANTTREATMENT: CONDITION INRProphylaxis of venous thrombosis in 2.0 - 3.0 high-risk medical or surgical patientsTreatment of venous thrombosis 2.0 - 3.0Prevention of embolism 2.0 - 3.0Prevention of recurrent embolism, or 3.0 - 4.5 patients with mechanical prosthetic intravascular valves IS PATIENT ON ANTICOAGULANTS ? YLIST ANTICOAGULANT/ANTI PLT MEDICATION : AspirinHas Lab been notified if Patient is on Heparin Drip? NOTHROMBOPLASTIN TIME [id number] 20:03:00* Test Item Value Reference Range Interpretation Comme nts PTT ACTIVATED (test code = APTT) 36.4 secs 25.1-36.5 N Please note new normal range. IS PATIENT ON ANTICOAGULANTS ? YLIST ANTICOAGULANT/ANTI PLT MEDICATION : AspirinHas Lab been notified if Patient is on Heparin Drip? NOCBC W/AUTO DIFF 2023-05-12 20:03:00* Test Item Value Reference Range Interpretation Comme nts WHITE BLOOD CELL (test code = WBC) 8.4 K/mm3 5.7-10.5 N RED BLOOD CELL (test code = RBC) 5.06 M/mm3 4.2-5.4 N HEMOGLOBIN (test code = HGB) 14.5 g/dL 12-16 N HEMATOCRIT (test code = HCT) 42.6 % 37-47 N MEAN CELL VOLUME (test code = MCV) 84 fL 80-98 N MEAN CELL HGB (test code = MCH) 28.7 pg 27-34 N MEAN CELL HGB CONCENTRATION (test code = MCHC) 34.0 g/dL 30.8-34.1 N RED CELL DISTRIBUTION WIDTH (test code = RDW) 13.0 % 11-16 N PLT (test code = PLT) 273 K/mm3 130-400 N MEAN PLATELET VOLUME (test c ode = MPV) 11.8 fL 8.9-12.1 N NEUTROPHIL % (test code = NT%) 69.2 % 45-70 N LYMPHOCYTE % (test code = LY%) 20.6 % 20-40 N MONOCYTE % (test code = MO%) 7.2 % 3-10 N EOSINOPHIL % (test code = EO%) 2.3 % 1-5 N BASOPHIL % (test code = BA%) 0.5 % 0.0-1.1 N NEUTROPHIL # (test code = NT#) 5.84 K/mm3 2.00-7.50 N LYMPHOCYTE # (test code = LY#) 1.74 K/mm3 1.50-4.00 N MONOCYTE # (test code = MO#) 0.61 K/mm3 0.2-0.8 N EOSINOPHIL # (test code = EO#) 0.19 K/mm3 0.04-0.4 N BASOPHIL # (test code = BA#) 0.04 K/mm3 0.02-0.10 N MANUAL DIFF REQUIRED (test c ode = MDIFF) NO MANUAL DIFF NUCLEATED RED BLOOD CELL (te st code = NRBC) 0 % 0-0 N COMPREHENSIVE METABOLIC [id number] 20:02:00* Test Item Value Reference Range Interpretation Comme nts SODIUM (test code = NA) 143 mmol/L 136-145 N POTASSIUM (test code = K) 4.2 mmol/L 3.5-5.1 N CHLORIDE (test code = CL) 104.0 mmol/L 98-107 N CARBON DIOXIDE (test code = CO2) 27.1 mmol/L 21-32 N GLUCOSE (test code = GLU) 110 mg/dL 70-110 N BLOOD UREA NITROGEN (test code = BUN) 20 mg/dL 7-18 H GLOMERULAR FILTRATION RATE (test code = GFR) 67.5 >60 The Glomerular Filtration Rate is a calculated parameterbased on serum Creatinine, patient age and sex. GFR valuesless than 60 mL/min/1.73 square meters are indicative ofChronic Kidney Disease. Values less than 15 mL/min/1.73square meters indicate Kidney failure. The calculation forGFR is based on the CKD-EPI (2020) calculation. This formulais race indifferent and is the recommended formula for GFRby the National Kidney Foundation for Adults.The GFR will not calculate if the sex is unknown or if thepatient's age is <18 years. CREATININE (test code = CREAT) 1.17 mg/dL 0.55-1.30 N TOTAL PROTEIN (test code = PROT) 6.8 g/dL 6.4-8.2 N ALBUMIN (test code = ALB) 3.8 g/dL 3.4-5.0 N GLOBULIN (test code = GLOB) 3.0 g/dL 2.2-4.2 N ALBUMIN/GLOBULIN RATIO (test code = A/G) 1.3 0.7-2.0 N CALCIUM (test code = CA) 9.5 mg/dL 8.2-10.1 N BILIRUBIN TOTAL (test code = BILT) 0.40 mg/dL 0.2-1.00 N SGOT/AST (test code = AST) 18.0 U/L 15-37 N SGPT/ALT (test code = ALT) 23.0 U/L 12-78 N ALKALINE PHOSPHATASE TOTAL (test code = ALKP) 79 U/L 46-116 N [id number] 16:06:31* Test Item Value Reference Range Interpretation Comme nts QuantaFlo left side (test code = 30802-6I) 1.33 See_Comment [Automate d message] The system which generated this result transmitted reference range: 1.40 - 0.90 NA. The reference range was not used to interpret this result as normal/abnormal. QuantaFlo right side (test code = 89200-5I) 1.31 See_Comment Exercise Modality: At RestNormal - 1.40 - 1.00Borderline - 0.99 - 0.90Mild - 0.89 - 0.60Moderate - 0.59 - 0.30Severe - 0.29 - 0.00 [Automated message] The system which generated this result transmitted reference range: 1.40 - 0.90 NA. The reference range was not used to interpret this result as normal/abnormal. Paige Lim - External- MRI UP JNT W/O CONT [id number] 12:02:00 [facility] 1955 Sex: M Patient Name: PATY KC Unit No: [id number] EXAMS: CPT CODE: [id number] MRI UP [facility] W/[place] [address] MR of the right shoulder without contrast TECHNIQUE: Paracoronal, parasagittal and axial multisequence images obtained. COMPARISON: None available FINDINGS: Acromioclavicular joint: Mild to moderate degenerative changes. Rotator cuff: Moderate supraspinatus tendinosis is demonstrated. An und ersurface/interstitial tear anteriorly measures 7 mm transversely and reaches high-grade.. No significant tendon retraction. Tendinosis and low-grade interstitial tear of the superior subscapularis tendon is present. Rotator cuff musculature is normal in size and signal intensity. Long head biceps tendon: A normal intra-articular biceps tendon is not visualized, likely torn. Labrum: A complex tear of the superior to posterior inferior labrum is noted. Cartilage/ bone: Severe glenohumeral cartilage loss reaches full-thickness within the superior humeral head diffusely. There is also broad high-grade cartilage loss of the mid inferior glenoid with extensive subchondral cystic change. No acute fracture. No suspicious osseous lesion. Other: A simple appearing intramuscular lipoma is noted about the infraspinatus. No significant joint effusion. IMPRESSION: 1. Severe glenohumeral osteoarthritis. 2. Undersurface/interstitial tear of the anterior supraspinatus tendon reaching high-grade. 3. Suspected tear of the intra-articular biceps tendon. 4. Intramuscular lipoma of the infraspinatus. at 1202 Reported and signed by: Faustino Matamoros M.D. CC: Lit London MD Technologist: Lynn Vicente, RT(R) Transcribed D/ (1202) ShrutiSLJ [facility] NAME: PATY KC [address] [facility] PHYS: Lit Bermudez MD : 1955 AGE: 66 SEX: M [place] [address] LOC: Y.MRI PHONE #: [phone] EXAM DATE: 11/06/2022 STATUS: DEP CLI FAX #: [phone] RAD#: D/C DT PAGE 1 Signed Report Patient Name: PATY KC Unit No: [id number] EXAMS: CPT CODE: [id number] MRI [place] JNT W/[place] [address] (Continued) Orig Print D/T: S: 11/07/2022 (1205) [facility] NAME: PATY KC [address] [facility] PHYS: Lit Bermduez MD : 1955 AGE: 66 SEX: M [place] [address] LOC: Y.MRI PHONE #: [phone] EXAM DATE: 11/06/2022 STATUS: DEP CLI FAX #: [phone] RAD #: D/C DT PAGE 2 Signed Report- MRI UP JNT W/O CONT [id number] 07:49:00 [facility] : 1955 Sex: M Patient Name: PATY KC Unit No: [id number] EXAMS: CPT CODE: [id number] MRI UP JNT W/O CONTRT 45284 MRI OF THE RIGHT ELBOW DIAGNOSIS: 1. Distal biceps tendinitis without evidence for tendon tear. 2. Severe arthritic change with cartilage loss, subchondral cyst and osteophyte. There is a large joint effusion and/or synovitis with edema surrounding the joint capsule consistent with inflammatory change. 3. Common extensor tendinitis without evidence for tendon tear. There is a mild strainof the extensor muscle mass proximally. 4. Common flexor tendon tendinitis without tendon tear. 5. Edema and enlargement of the ulnar nerve consistent with neuritis. 6. Edema is seen within the ankleis muscle consistent with strain without tearing. COMMENT: COMPARISON: No prior exams available. Sca ns were performed in the sagittal, axial and coronal planes utilizing T1, spin density with fat saturation, T2 and inversion recovery images. Bony and hyaline cartilage abnormalities are present as noted. Tendon and muscle abnormalities are as described. There is no evidence for sprain or tear of the medial or lateral collateral ligaments. at 0749 Reported and signed by: Zack Smith MD CC: Naren Simpson MD; Lit London MD Technologist: Lynn Vicente, RT(R) Transcribed D/ (0749) t.ELYSER.[facility] NAME: PATY KC [address] [facility] PHYS: Lit Bermudez MD : AGE: 66 SEX: M [place], [place] [address] LOC: Y.MRI PHONE #: [phone] EXAM DATE: 10/30/2022 STATUS: DEP CLI FAX #: [phone] RAD #: D/C DT PAGE 1 Signed Report Patient Name: PATY KC Unit No: [id number] EXAMS: CPT CODE: [id number] MRI [place] JNT W/[place] [address] (Continued) Orig Print D/T: S: 10/31/2022 (0752) [facility] NAME: PATY KC [address] [facility] [address] PHYS: Lit Bermudez MD : 1955 AGE: 66 SEX: M [place], [place] [address] LOC: Y.MRI PHONE #: [phone] EXAM DATE: 10/30/2022 STATUS: DEP CLI FAX #: [phone] RAD #: D/C DT PAGE 2 Signed ReportBASIC METABOLIC [id number] 06:44:00* Test Item Value Reference Range Interpretation Comme nts SODIUM (test code = NA) 140 mmol/L 136-145 N POTASSIUM (test code = K) 5.1 mmol/L 3.5-5.1 N CHLORIDE (test code = CL) 102.0 mmol/L 98-107 N CARBON DIOXIDE (test code = CO2) 27.8 mmol/L 21-32 N GLUCOSE (test code = GLU) 98 mg/dL 70-110 N BLOOD UREA NITROGEN (test code = BUN) 21 mg/dL 7-18 H GLOMERULAR FILTRATION RATE (test code = GFR) 53.5 >60 Unit of m easure: mL/min/1.73 [id number] Range:Healthy Adults >90 mL/min/1.73 m2 For Chronic Kidney Disease: Stage II Mild Decrease in GFR 60-90 Stage III Moderate Decrease in GFR 30-59 Stage IV Severe Decrease in GFR 15-29 Stage V Kidney Failure <15 CREATININE (test code = CREAT) 1.33 mg/dL 0.55-1.30 H CALCIUM (test code = CA) 8.5 mg/dL 8.2-10.1 N CBC W/AUTO [id number] 06:05:00* Test Item Value Reference Range Interpretation Comme nts WHITE BLOOD CELL (test code = WBC) 10.8 K/mm3 5.7-10.5 H RED BLOOD CELL (test code = RBC) 4.05 M/mm3 4.2-5.4 L HEMOGLOBIN (test code = HGB) 11.1 g/dL 12-16 L HEMATOCRIT (test code = HCT) 34.8 % 37-47 L MEAN CELL VOLUME (test code = MCV) 86 fL 80-98 N MEAN CELL HGB (test code = MCH) 27.4 pg 27-34 N MEAN CELL HGB CONCENTRATION (test code = MCHC) 31.9 g/dL 30.8-34.1 N RED CELL DISTRIBUTION WIDTH (test code = RDW) 14.2 % 11-16 N PLT (test code = PLT) 240 K/mm3 130-400 N MEAN PLATELET VOLUME (test c ode = MPV) 11.2 fL 8.9-12.1 N NEUTROPHIL % (test code = NT%) 83.9 % 45-70 H LYMPHOCYTE % (test code = LY%) 5.4 % 20-40 L MONOCYTE % (test code = MO%) 9.3 % 3-10 N EOSINOPHIL % (test code = EO%) 0.6 % 1-5 L BASOPHIL % (test code = BA%) 0.4 % 0.0-1.1 N NEUTROPHIL # (test code = NT#) 9.08 K/mm3 2.00-7.50 H LYMPHOCYTE # (test code = LY#) 0.58 K/mm3 1.50-4.00 L MONOCYTE # (test code = MO#) 1.01 K/mm3 0.2-0.8 H EOSINOPHIL # (test code = EO#) 0.07 K/mm3 0.04-0.4 N BASOPHIL # (test code = BA#) 0.04 K/mm3 0.02-0.10 N MANUAL DIFF REQUIRED (test c ode = MDIFF) NO MANUAL DIFF NUCLEATED RED BLOOD CELL (te st code = NRBC) 0 % 0-0 N CBC W Auto Differential panel - [id number] 03:38:00* Test Item Value Reference Range Interpretation Comme nts white blood cell (test code = white blood cell) 10.8 K/mm3 5.7-10.5 H red blood cell (test code = red blood cell) 4.05 M/mm3 4.2-5.4 L hemoglobin (test code = hemoglobin) 11.1 g/dL 12-16 L hematocrit (test code = hematocrit) 34.8 % 37-47 L mean cell volume (test code = mean cell volume) 86 fL 80-98 mean cell HGB (test code = m vijay cell HGB) 27.4 pg 27-34 mean cell HGB concentration (test code = mean cell HGB concentration) 31.9 g/dL 30.8-34.1 red cell distribution width (test code = red cell distribution width) 14.2 % 11-16 plt (test code = plt) 240 K/mm3 130-400 mean platelet volume (test c ode = mean platelet volume) 11.2 fL 8.9-12.1 neutrophil % (test code = neutrophil %) 83.9 % 45-70 H lymphocyte % (test code = lymphocyte %) 5.4 % 20-40 L monocyte % (test code = mono cyte %) 9.3 % 3-10 eosinophil % (test code = eosinophil %) 0.6 % 1-5 L basophil % (test code = baso eriberto %) 0.4 % 0.0-1.1 neutrophil # (test code = neutrophil #) 9.08 K/mm3 2.00-7.50 H lymphocyte # (test code = lymphocyte #) 0.58 K/mm3 1.50-4.00 L monocyte # (test code = mono cyte #) 1.01 K/mm3 0.2-0.8 H eosinophil # (test code = eosinophil #) 0.07 K/mm3 0.04-0.4 basophil # (test code = baso eriberto #) 0.04 K/mm3 0.02-0.10 manual diff required (test c ode = manual diff required) no manual diff nucleated red blood cell (te st code = nucleated red blood cell) 0 % 0-0 performing lab: (test code = performing lab:) [facility] [id number] 03:38:00* Test Item Value Reference Range Interpretation Comme nts sodium (test code = sodium) 140 mmol/L 136-145 potassium (test code = potassium) 5.1 mmol/L 3.5-5.1 chloride (test code = chloride) 102.0 mmol/L 98-107 carbon dioxide (test code = carbon dioxide) 27.8 mmol/L 21-32 glucose (test code = glucose) 98 mg/dL 70-110 blood urea nitrogen (test co de = blood urea nitrogen) 21 mg/dL 7-18 H glomerular filtration rate ( test code = glomerular filtration rate) 53.5 >60 creatinine (test code = creatinine) 1.33 mg/dL 0.55-1.30 H calcium (test code = calcium) 8.5 mg/dL 8.2-10.1 performing lab: (test code = performing lab:) [facility]- CT LOWER EXTRM W/O C [id number] 08:34:00 [facility] 1955 Sex: M Patient Name: PATY KC Unit No: [id number] EXAMS: CPT CODE: [id number] CT LOWER EXTRM W/O CLT 10704 TECHNIQUE: Volumetric CT data of the left ankle was obtained without use of intravenous contrast. Images were then viewed in the axial, coronal and sagittal planes. CT radiation dose optimization is achieved for this examination by the use of a CT protocol in accordance with ACR practice st and[facility] and adherence to shell mold bonder's recommendations. INDICATION: LEFT ANKLE EVAL FRACTURE COMPARISON: CT dated 06/12/2022 FINDINGS: TTC arthrodesis is demonstrated with lucency about the distal isreal measuring 4 mm, consistent with loosening. A posterior plate and screw fixation extending from the tibia and calcaneus is present with a bone graft partially demonstrated. There may be partial fusion of the graft although suboptimally demonstrated due to artifact. The mid to anterior subtalar and ankle joints are without significant effusion. No acute fracture. IMPRESSION: Postoperative changes of the left ankle as described. at 0834 Reported and signed by: Faustino Matamoros M.D. CC: Naren Simpson MD Technologist: RT Taty(R) CTDI: DLP: Trnscrpt: 08/19/2022 (0834) MeleR.SLJ [facility] NAME: PATY KC [address] [facility] PHYS: LENA - Naren Simpson MD : 1955 AGE: 66 SEX: [place] [address] LOC: Y.RAD PHONE #: [phone] EXAM DATE: 08/14/2022 STATUS: DEP CLI FAX #: [phone] RAD #: D/C DT PAGE 1 Signed Report Patient Name: PATY KC Unit No: [id number] EXAMS: CPT CODE: [id number] [place] LOWER [place]TRM W/[place] [address] (Continued) Orig Print D/T: S: 08/19/2022 (0837) [facility] NAME: PATY KC [address] [facility] PHYS: LENA - Naren Simpson MD : 1955 AGE: 66 SEX: [place] [address] LOC: Y.RAD PHONE #: [phone] EXAM DATE: 08/14/2022 STATUS: DEP CLI FAX #: [phone] RAD #: D/C DT PAGE 2 Signed ReportSED [id number] 07:24:00* Test Item Value Reference Range Interpretation Comme nts SED RATE (test code = SEDW) 28 mm/hr 0-15 H Performed At: [facility] [id number] Kyle L MD Ph:[phone] C REACTIVE [id number] 21:25:00* Test Item Value Reference Range Interpretation Comme nts C REACTIVE PROTEIN (test cod e = CRP) 2.2 mg/dL <0.9 ACUTE HEPATITIS [id number] 21:25:00* Test Item Value Reference Range Interpretation Comme nts AB HEPATITIS A IGM (test cod e = HAVMAB) NONREACTIVE NONREACTIVE AG HEPATITIS B SURFACE (test code = HBSAG) NONREACTIVE NONREACTIVE AB HEPATITIS B CORE IGM (carlita t code = HBCMAB) NONREACTIVE NONREACTIVE AB HEPATITIS C (test code = HCVAB) NONREACTIVE NONREACTIVE SIGNAL TO CUTOFF (test code = CUTOFF) 0.10 <0.80 ACUTE HEPATITIS [id number] 21:24:00* Test Item Value Reference Range Interpretation Comme nts AB HEPATITIS A IGM (test cod e = HAVMAB) NONREACTIVE NONREACTIVE AG HEPATITIS B SURFACE (test code = HBSAG) NONREACTIVE NONREACTIVE AB HEPATITIS B CORE IGM (carlita t code = HBCMAB) NONREACTIVE NONREACTIVE AB HEPATITIS C (test code = HCVAB) NONREACTIVE NONREACTIVE SIGNAL TO CUTOFF (test code = CUTOFF) 0.10 <0.80 N CBC W/AUTO [id number] 15:37:00* Test Item Value Reference Range Interpretation Comme nts WHITE BLOOD CELL (test code = WBC) 8.1 K/mm3 5.7-10.5 N RED BLOOD CELL (test code = RBC) 4.64 M/mm3 4.2-5.4 N HEMOGLOBIN (test code = HGB) 12.7 g/dL 12-16 N HEMATOCRIT (test code = HCT) 38.6 % 37-47 N MEAN CELL VOLUME (test code = MCV) 83 fL 80-98 N MEAN CELL HGB (test code = MCH) 27.4 pg 27-34 N MEAN CELL HGB CONCENTRATION (test code = MCHC) 32.9 g/dL 30.8-34.1 N RED CELL DISTRIBUTION WIDTH (test code = RDW) 13.9 % 11-16 N PLT (test code = PLT) 270 K/mm3 130-400 N MEAN PLATELET VOLUME (test c ode = MPV) 10.8 fL 8.9-12.1 N NEUTROPHIL % (test code = NT%) 71.9 % 45-70 H LYMPHOCYTE % (test code = LY%) 17.3 % 20-40 L MONOCYTE % (test code = MO%) 7.9 % 3-10 N EOSINOPHIL % (test code = EO%) 2.1 % 1-5 N BASOPHIL % (test code = BA%) 0.6 % 0.0-1.1 N NEUTROPHIL # (test code = NT#) 5.84 K/mm3 2.00-7.50 N LYMPHOCYTE # (test code = LY#) 1.41 K/mm3 1.50-4.00 L MONOCYTE # (test code = MO#) 0.64 K/mm3 0.2-0.8 N EOSINOPHIL # (test code = EO#) 0.17 K/mm3 0.04-0.4 N BASOPHIL # (test code = BA#) 0.05 K/mm3 0.02-0.10 N MANUAL DIFF REQUIRED (test c ode = MDIFF) NO MANUAL DIFF NUCLEATED RED BLOOD CELL (te st code = NRBC) 0 % 0-0 N PROTHROMBIN [id number] 15:37:00* Test Item Value Reference Range Interpretation Comme nts PROTHROMBIN TIME PATIENT (test code = PTP) 11.7 secs 9.7-12.5 N Please note new normal range. INTERNATIONAL NORMAL RATIO (test code = INR) 1.05 <2.0 RECOMMENDED THER APEUTIC RANGE FOR ORAL ANTICOAGULANTTREATMENT: CONDITION INRProphylaxis of venous thrombosis in 2.0 - 3.0 high-risk medical or surgical patientsTreatment of venous thrombosis 2.0 - 3.0Prevention of embolism 2.0 - 3.0Prevention of recurrent embolism, or 3.0 - 4.5 patients with mechanical prosthetic intravascular valves IS PATIENT ON ANTICOAGULANTS ? YLIST ANTICOAGULANT/ANTI PLT MEDICATION : AspirinHas Lab been notified if Patient is on Heparin Drip? NOTHROMBOPLASTIN TIME [id number] 15:37:00* Test Item Value Reference Range Interpretation Comme nts PTT ACTIVATED (test code = APTT) 38.3 secs 26.6-34.6 H Please note new normal range. IS PATIENT ON ANTICOAGULANTS ? YLIST ANTICOAGULANT/ANTI PLT MEDICATION : AspirinHas Lab been notified if Patient is on Heparin Drip? NOCOMPREHENSIVE METABOLIC [id number] 15:36:00* Test Item Value Reference Range Interpretation Comme nts SODIUM (test code = NA) 141 mmol/L 136-145 N POTASSIUM (test code = K) 4.1 mmol/L 3.5-5.1 N CHLORIDE (test code = CL) 102.0 mmol/L 98-107 N CARBON DIOXIDE (test code = CO2) 30.0 mmol/L 21-32 N GLUCOSE (test code = GLU) 82 mg/dL 70-110 N BLOOD UREA NITROGEN (test code = BUN) 19 mg/dL 7-18 H GLOMERULAR FILTRATION RATE (test code = GFR) 77.0 >60 Unit of m easure: mL/min/1.73 [id number] Range:Healthy Adults >90 mL/min/1.73 m2 For Chronic Kidney Disease: Stage II Mild Decrease in GFR 60-90 Stage III Moderate Decrease in GFR 30-59 Stage IV Severe Decrease in GFR 15-29 Stage V Kidney Failure <15 CREATININE (test code = CREAT) 0.97 mg/dL 0.55-1.30 N TOTAL PROTEIN (test code = PROT) 7.3 g/dL 6.4-8.2 N ALBUMIN (test code = ALB) 3.6 g/dL 3.4-5.0 N GLOBULIN (test code = GLOB) 3.7 g/dL 2.2-4.2 N ALBUMIN/GLOBULIN RATIO (test code = A/G) 1.0 0.7-2.0 N CALCIUM (test code = CA) 9.6 mg/dL 8.2-10.1 N BILIRUBIN TOTAL (test code = BILT) 0.20 mg/dL 0.2-1.00 N SGOT/AST (test code = AST) 12.0 U/L 15-37 L SGPT/ALT (test code = ALT) 18.0 U/L 12-78 N Please note new normal range. ALKALINE PHOSPHATASE TOTAL (test code = ALKP) 83 U/L 46-116 N Methicillin resistant Staphylococcus aureus [Presence] in Specimen by Organism specific [id number] 13:21:00* Test Item Value Reference Range Interpretation Comme nts MRSA surveillance screen (te st code = MRSA surveillance screen) see below performing lab: (test code = performing lab:) [facility] [id number] 13:21:00 * Test Item Value Reference Range Interpretation Comme nts mssa PCR surveillance screen (test code = mssa PCR surveillance screen) see below performing lab: (test code = performing lab:) [facility]Com[facility] 2000 panel - Serum or [id number] 13:21:00* Test Item Value Reference Range Interpretation Comme nts sodium (test code = sodium) 141 mmol/L 136-145 potassium (test code = potassium) 4.1 mmol/L 3.5-5.1 chloride (test code = chloride) 102.0 mmol/L 98-107 carbon dioxide (test code = carbon dioxide) 30.0 mmol/L 21-32 glucose (test code = glucose) 82 mg/dL 70-110 blood urea nitrogen (test co de = blood urea nitrogen) 19 mg/dL 7-18 H glomerular filtration rate ( test code = glomerular filtration rate) 77.0 >60 creatinine (test code = creatinine) 0.97 mg/dL 0.55-1.30 total protein (test code = t otal protein) 7.3 g/dL 6.4-8.2 albumin (test code = albumin) 3.6 g/dL 3.4-5.0 globulin (test code = globulin) 3.7 g/dL 2.2-4.2 albumin/globulin ratio (test code = albumin/globulin ratio) 1.0 0.7-2.0 calcium (test code = calcium) 9.6 mg/dL 8.2-10.1 bilirubin total (test code = bilirubin total) 0.20 mg/dL 0.2-1.00 SGOT/AST (test code = SGOT/AST) 12.0 U/L 15-37 L SGPT/ALT (test code = SGPT/ALT) 18.0 U/L 12-78 alkaline phosphatase total ( test code = alkaline phosphatase total) 83 U/L 46-116 performing lab: (test code = performing lab:) [facility] W Auto Differential panel - [id number] 13:21:00* Test Item Value Reference Range Interpretation Comme nts white blood cell (test code = white blood cell) 8.1 K/mm3 5.7-10.5 red blood cell (test code = red blood cell) 4.64 M/mm3 4.2-5.4 hemoglobin (test code = hemoglobin) 12.7 g/dL 12-16 hematocrit (test code = hematocrit) 38.6 % 37-47 mean cell volume (test code = mean cell volume) 83 fL 80-98 mean cell HGB (test code = m vijay cell HGB) 27.4 pg 27-34 mean cell HGB concentration (test code = mean cell HGB concentration) 32.9 g/dL 30.8-34.1 red cell distribution width (test code = red cell distribution width) 13.9 % 11-16 plt (test code = plt) 270 K/mm3 130-400 mean platelet volume (test c ode = mean platelet volume) 10.8 fL 8.9-12.1 neutrophil % (test code = neutrophil %) 71.9 % 45-70 H lymphocyte % (test code = lymphocyte %) 17.3 % 20-40 L monocyte % (test code = mono cyte %) 7.9 % 3-10 eosinophil % (test code = eosinophil %) 2.1 % 1-5 basophil % (test code = baso eriberto %) 0.6 % 0.0-1.1 neutrophil # (test code = neutrophil #) 5.84 K/mm3 2.00-7.50 lymphocyte # (test code = lymphocyte #) 1.41 K/mm3 1.50-4.00 L monocyte # (test code = mono cyte #) 0.64 K/mm3 0.2-0.8 eosinophil # (test code = eosinophil #) 0.17 K/mm3 0.04-0.4 basophil # (test code = baso eriberto #) 0.05 K/mm3 0.02-0.10 manual diff required (test c ode = manual diff required) no manual diff nucleated red blood cell (te st code = nucleated red blood cell) 0 % 0-0 performing lab: (test code = performing lab:) [facility]Prothrombin time (PT)2022-08-14 13:21:00* Test Item Value Reference Range Interpretation Comme nts prothrombin time patient (te st code = prothrombin time patient) 11.7 secs 9.7-12.5 international normal ratio ( test code = international normal ratio) 1.05 <2.0 performing lab: (test code = performing lab:) [facility]iothromboplastin time [id number] 13:21:00 * Test Item Value Reference Range Interpretation Comme nts PTT activated (test code = P TT activated) 38.3 secs 26.6-34.6 H performing lab: (test code = performing lab:) [facility] reactive [id number] 13:21:00* Test Item Value Reference Range Interpretation Comme nts C reactive protein (test cod e = C reactive protein) 2.2 mg/dL <0.9 performing lab: (test code = performing lab:) [facility] hepatitis [id number] 13:21:00* Test Item Value Reference Range Interpretation Comme nts Ab hepatitis A IgM (test cod e = Ab hepatitis A IgM) nonreactive nonreactive Ag hepatitis B surface (test code = Ag hepatitis B surface) nonreactive nonreactive Ab hepatitis B core IgM (carlita t code = Ab hepatitis B core IgM) nonreactive nonreactive Ab hepatitis C (test code = Ab hepatitis C) nonreactive nonreactive signal to cutoff (test code = signal to cutoff) 0.10 <0.80 performing lab: (test code = performing lab:) [facility] Medicinesed [id number] 13:21:00* Test Item Value Reference Range Interpretation Comme nts sed rate (test code = sed rate) 28 mm/HR 0-15 H performing lab: (test code = performing lab:) [facility] Hospitalanaerobic [id number] 00:00:00* Test Item Value Reference Range Interpretation Comme nts anaerobic culture (test code = anaerobic culture) see below performing lab: (test code = performing lab:) [facility] Hospitalwound [id number] 00:00:00* Test Item Value Reference Range Interpretation Comme nts wound culture (test code = w ound culture) see below performing lab: (test code = performing lab:) [facility] HospitalMicroscopic observation [Identifier] in Specimen by Gram [id number] 00:00:00* Test Item Value Reference Range Interpretation Comme nts gram stain (test code = gram stain) see below performing lab: (test code = performing lab:) [facility] HospitalCREATINE KINASE (CK)2022-06-14 08:03:00* Test Item Value Reference Range Interpretation Comme nts CREATINE KINASE (CK) (test c ode = CK) 45 Units/L 26-192 SPECIMEN COMMENT: WITH AM LABS PRIOR TO 4TH DOSECREATINE KINASE (CK)2022-06-14 08:02:00* Test Item Value Reference Range Interpretation Comme nts CREATINE KINASE (CK) (test c ode = CK) 45 Units/L 26-192 N SPECIMEN COMMENT: WITH AM LABS PRIOR TO 4TH DOSECreatine kinase [Enzymatic activity/volume] in Serum or [id number] 04:15:00* Test Item Value Reference Range Interpretation Comme nts creatine kinase (CK) (test c ode = creatine kinase (CK)) 45 units/L 26-192 performing lab: (test code = performing lab:) [facility] [place] LOWER EXTRM W/O C [id number] 14:14:00 [facility] 1955 Sex: M Patient Name: PATY KC Unit No: [id number] EXAMS: CPT CODE: [id number] CT LOWER EXTRM W/[place] [address] TECHNIQUE: Volumetric CT data of the left ankle was obtained without use of intravenous contrast. Images were then viewed in the axial, coronal and sagittal planes. CT radiation dose optimization is achieved for this examination by the use of a CT protocol in accordance with ACR practice st andards and adherence to shell mold bonder's recommendations. INDICATION: ankle fusion COMPARISON: CT dated 02/20/2022 FINDINGS: TTC arthrodesis is demonstrated with loosening of the vertical isreal. Interval placement of the posterior plate and screws transfixing the tibia to calcaneus. Lucency of the most distal screw is concerning for loosening. No definite ankle or subtalar fusion is visualized. No acute fracture. Soft tissue swelling is noted about the ankle. IMPRESSION: No evidence of ankle or subtalar fusion. at 1414 Reported and signed by: Faustino Matamoros M.D. CC: Naren Simpson MD; Allie PRATT Technologist: Lisandro Wolf(R) CTDI: DLP: Trnscrpt: 06/12/2022 (1414) ShrutiSLJ [facility] NAME: PATY KC [address] PHYS: [email or web address] - Naren Simpson MD : 1955 AGE: 66 SEX: [place], [place] [address] LOC: Y.507 A PHONE #: [phone] EXAM DATE: 06/12/2022TATUS: ADM IN FAX #: [phone] RAD #: D/C DT PAGE 1 Signed Report Patient Name: PATY KC Unit No: [id number] EXAMS: CPT CODE: [id number] CT LOWER EXTRM W/[place] [address] (Continued) Orig Print D/T: S: 06/12/2022 (1417) [facility] NAME: PATY KC [address] [facility] PHYS: JOSE Naren Simpson MD : 1955 AGE: 66 SEX: [place], [place] [address] LOC: Y.507 A PHONE #: [phone] EXAM DATE: 06/12/2022 STATUS: ADM IN FAX #: [phone] RAD #: D/C DT PAGE 2 Signed Report- XR CHEST 1 [id number] 12:49:00 [facility] : 1955 Sex: M Patient Name: PATY KC Unit No: [id number] EXAMS: CPT CODE: [id number] XR CHEST 1 V 59848 IMAGES PROVIDED: One frontal view of the chest is provided. COMPARISON: None FINDINGS: Left PICC lineis in place with tip likely overlying the SVC. The lungs are clear. The heart size and pulmonary vasculature are normal. No pleural effusion or pneumothorax. IMPRESSION: Left PICC line as above. at 1249 Reported and signed by: Faustino Matamoros M.D. CC: Naren Simpson MD; Asia Sweeney MD Technologist: TAHIRA LEVY. RT(R) Transcribed D/ (4827) Saturnino [facility] NAME: PATY KC [address] [facility] PHYS: Asia Rayo MD : 1955 AGE: 66 SEX: M [place], [place] [address] ACCT NO: [id number] LOC: Y.507 A PHONE #: [phone] EXAM DATE: 06/11/2022 STATUS: ADM IN FAX #: [phone] RAD #: D/C DT PAGE 1 Signed Report Patient Name: PATY KC Unit No: [id number] EXAMS: CPT CODE: [id number] XR CHEST 1 V 36009 (Continued) Orig Print D/T: S: 06/12/2022 (4973) [facility] NAME: PATY KC [address] [facility] PHYS: Asia Rayo MD : 1955 AGE: 66 SEX: M [place], [place] [address] LOC: Y.507 A PHONE #: [phone] EXAM DATE: 06/11/2022 STATUS: ADM IN FAX #: [phone] RAD #: D/C DT PAGE 2 Signed ReportBASIC METABOLIC [id number] 07:09:00* Test Item Value Reference Range Interpretation Comme nts SODIUM (test code = NA) 140 mmol/L 136-145 N POTASSIUM (test code = K) 4.3 mmol/L 3.5-5.1 N CHLORIDE (test code = CL) 103.0 mmol/L 98-107 N CARBON DIOXIDE (test code = CO2) 29.8 mmol/L 21-32 N GLUCOSE (test code = GLU) 103 mg/dL 70-110 N BLOOD UREA NITROGEN (test code = BUN) 24 mg/dL 7-18 H GLOMERULAR FILTRATION RATE (test code = GFR) 81.8 >60 Unit of m easure: mL/min/1.73 [id number] Range:Healthy Adults >90 mL/min/1.73 m2 For Chronic Kidney Disease: Stage II Mild Decrease in GFR 60-90 Stage III Moderate Decrease in GFR 30-59 Stage IV Severe Decrease in GFR 15-29 Stage V Kidney Failure <15 CREATININE (test code = CREAT) 0.92 mg/dL 0.55-1.30 N CALCIUM (test code = CA) 8.8 mg/dL 8.2-10.1 N CBC W/AUTO [id number] 06:13:00* Test Item Value Reference Range Interpretation Comme nts WHITE BLOOD CELL (test code = WBC) 7.7 K/mm3 5.7-10.5 N RED BLOOD CELL (test code = RBC) 4.04 M/mm3 4.2-5.4 L HEMOGLOBIN (test code = HGB) 11.0 g/dL 12-16 L HEMATOCRIT (test code = HCT) 34.6 % 37-47 L MEAN CELL VOLUME (test code = MCV) 86 fL 80-98 N MEAN CELL HGB (test code = MCH) 27.2 pg 27-34 N MEAN CELL HGB CONCENTRATION (test code = MCHC) 31.8 g/dL 30.8-34.1 N RED CELL DISTRIBUTION WIDTH (test code = RDW) 14.2 % 11-16 N PLT (test code = PLT) 192 K/mm3 130-400 N MEAN PLATELET VOLUME (test c ode = MPV) 10.9 fL 8.9-12.1 N NEUTROPHIL % (test code = NT%) 61.4 % 45-70 N LYMPHOCYTE % (test code = LY%) 23.8 % 20-40 N MONOCYTE % (test code = MO%) 9.9 % 3-10 N EOSINOPHIL % (test code = EO%) 4.0 % 1-5 N BASOPHIL % (test code = BA%) 0.6 % 0.0-1.1 N NEUTROPHIL # (test code = NT#) 4.73 K/mm3 2.00-7.50 N LYMPHOCYTE # (test code = LY#) 1.83 K/mm3 1.50-4.00 N MONOCYTE # (test code = MO#) 0.76 K/mm3 0.2-0.8 N EOSINOPHIL # (test code = EO#) 0.31 K/mm3 0.04-0.4 N BASOPHIL # (test code = BA#) 0.05 K/mm3 0.02-0.10 N MANUAL DIFF REQUIRED (test c ode = MDIFF) NO MANUAL DIFF NUCLEATED RED BLOOD CELL (te st code = NRBC) 0 % 0-0 N CBC W Auto Differential panel - [id number] 05:00:00* Test Item Value Reference Range Interpretation Comme nts white blood cell (test code = white blood cell) 7.7 K/mm3 5.7-10.5 red blood cell (test code = red blood cell) 4.04 M/mm3 4.2-5.4 L hemoglobin (test code = hemoglobin) 11.0 g/dL 12-16 L hematocrit (test code = hematocrit) 34.6 % 37-47 L mean cell volume (test code = mean cell volume) 86 fL 80-98 mean cell HGB (test code = m vijay cell HGB) 27.2 pg 27-34 mean cell HGB concentration (test code = mean cell HGB concentration) 31.8 g/dL 30.8-34.1 red cell distribution width (test code = red cell distribution width) 14.2 % 11-16 plt (test code = plt) 192 K/mm3 130-400 mean platelet volume (test c ode = mean platelet volume) 10.9 fL 8.9-12.1 neutrophil % (test code = neutrophil %) 61.4 % 45-70 lymphocyte % (test code = lymphocyte %) 23.8 % 20-40 monocyte % (test code = mono cyte %) 9.9 % 3-10 eosinophil % (test code = eosinophil %) 4.0 % 1-5 basophil % (test code = baso eriberto %) 0.6 % 0.0-1.1 neutrophil # (test code = neutrophil #) 4.73 K/mm3 2.00-7.50 lymphocyte # (test code = lymphocyte #) 1.83 K/mm3 1.50-4.00 monocyte # (test code = mono cyte #) 0.76 K/mm3 0.2-0.8 eosinophil # (test code = eosinophil #) 0.31 K/mm3 0.04-0.4 basophil # (test code = baso eriberto #) 0.05 K/mm3 0.02-0.10 manual diff required (test c ode = manual diff required) no manual diff nucleated red blood cell (te st code = nucleated red blood cell) 0 % 0-0 performing lab: (test code = performing lab:) [facility] [id number] 05:00:00* Test Item Value Reference Range Interpretation Comme nts sodium (test code = sodium) 140 mmol/L 136-145 potassium (test code = potassium) 4.3 mmol/L 3.5-5.1 chloride (test code = chloride) 103.0 mmol/L 98-107 carbon dioxide (test code = carbon dioxide) 29.8 mmol/L 21-32 glucose (test code = glucose) 103 mg/dL 70-110 blood urea nitrogen (test co de = blood urea nitrogen) 24 mg/dL 7-18 H glomerular filtration rate ( test code = glomerular filtration rate) 81.8 >60 creatinine (test code = creatinine) 0.92 mg/dL 0.55-1.30 calcium (test code = calcium) 8.8 mg/dL 8.2-10.1 performing lab: (test code = performing lab:) [facility]O [id number] 14:56:00* Test Item Value Reference Range Interpretation Comme nts WHITE BLOOD CELL (test code = WBC) 8.5 K/mm3 5.7-10.5 N RED BLOOD CELL (test code = RBC) 4.83 M/mm3 4.2-5.4 N HEMOGLOBIN (test code = HGB) 13.2 g/dL 12-16 N HEMATOCRIT (test code = HCT) 40.8 % 37-47 N MEAN CELL VOLUME (test code = MCV) 85 fL 80-98 N MEAN CELL HGB (test code = MCH) 27.3 pg 27-34 N MEAN CELL HGB CONCENTRATION (test code = MCHC) 32.4 g/dL 30.8-34.1 N RED CELL DISTRIBUTION WIDTH (test code = RDW) 14.1 % 11-16 N PLT (test code = PLT) 246 K/mm3 130-400 N MEAN PLATELET VOLUME (test c ode = MPV) 11.1 fL 8.9-12.1 N NEUTROPHIL % (test code = NT%) 76.0 % 45-70 H LYMPHOCYTE % (test code = LY%) 13.5 % 20-40 L MONOCYTE % (test code = MO%) 8.0 % 3-10 N EOSINOPHIL % (test code = EO%) 1.5 % 1-5 N BASOPHIL % (test code = BA%) 0.6 % 0.0-1.1 N NEUTROPHIL # (test code = NT#) 6.50 K/mm3 2.00-7.50 N LYMPHOCYTE # (test code = LY#) 1.15 K/mm3 1.50-4.00 L MONOCYTE # (test code = MO#) 0.68 K/mm3 0.2-0.8 N EOSINOPHIL # (test code = EO#) 0.13 K/mm3 0.04-0.4 N BASOPHIL # (test code = BA#) 0.05 K/mm3 0.02-0.10 N MANUAL DIFF REQUIRED (test c ode = MDIFF) NO MANUAL DIFF NUCLEATED RED BLOOD CELL (te st code = NRBC) 0 % 0-0 N SED [id number] 14:56:00* Test Item Value Reference Range Interpretation Comme nts SED RATE (test code = SEDW) 46 mm/hr 0-15 H C REACTIVE [id number] 14:30:00* Test Item Value Reference Range Interpretation Comme nts C REACTIVE PROTEIN (test cod e = CRP) 0.4 mg/dL <0.9 COMPREHENSIVE METABOLIC [id number] 14:30:00* Test Item Value Reference Range Interpretation Comme nts SODIUM (test code = NA) 142 mmol/L 136-145 N POTASSIUM (test code = K) 4.3 mmol/L 3.5-5.1 N CHLORIDE (test code = CL) 103.0 mmol/L 98-107 N CARBON DIOXIDE (test code = CO2) 28.5 mmol/L 21-32 N GLUCOSE (test code = GLU) 65 mg/dL 70-110 L BLOOD UREA NITROGEN (test code = BUN) 18 mg/dL 7-18 N GLOMERULAR FILTRATION RATE (test code = GFR) 77.9 >60 Unit of m easure: mL/min/1.73 [id number] Range:Healthy Adults >90 mL/min/1.73 m2 For Chronic Kidney Disease: Stage II Mild Decrease in GFR 60-90 Stage III Moderate Decrease in GFR 30-59 Stage IV Severe Decrease in GFR 15-29 Stage V Kidney Failure <15 CREATININE (test code = CREAT) 0.96 mg/dL 0.55-1.30 N TOTAL PROTEIN (test code = PROT) 7.5 g/dL 6.4-8.2 N ALBUMIN (test code = ALB) 4.2 g/dL 3.4-5.0 N GLOBULIN (test code = GLOB) 3.3 g/dL 2.2-4.2 N ALBUMIN/GLOBULIN RATIO (test code = A/G) 1.3 0.7-2.0 N CALCIUM (test code = CA) 9.8 mg/dL 8.2-10.1 N BILIRUBIN TOTAL (test code = BILT) 0.40 mg/dL 0.2-1.00 N SGOT/AST (test code = AST) 13.0 U/L 15-37 L SGPT/ALT (test code = ALT) 18.0 U/L 12-78 N Please note new normal range. ALKALINE PHOSPHATASE TOTAL (test code = ALKP) 85 U/L 46-116 N PROTHROMBIN [id number] 14:21:00* Test Item Value Reference Range Interpretation Comme nts PROTHROMBIN TIME PATIENT (test code = PTP) 11.7 secs 9.7-12.5 N Please note new normal range. INTERNATIONAL NORMAL RATIO (test code = INR) 1.05 <2.0 RECOMMENDED THER APEUTIC RANGE FOR ORAL ANTICOAGULANTTREATMENT: CONDITION INRProphylaxis of venous thrombosis in 2.0 - 3.0 high-risk medical or surgical patientsTreatment of venous thrombosis 2.0 - 3.0Prevention of embolism 2.0 - 3.0Prevention of recurrent embolism, or 3.0 - 4.5 patients with mechanical prosthetic intravascular valves IS PATIENT ON ANTICOAGULANTS ? YLIST ANTICOAGULANT/ANTI PLT MEDICATION : AspirinHas Lab been notified if Patient is on Heparin Drip? NOIf Yes, order CBC, OCCULT BLOOD, PT every other day NTHROMBOPLASTIN TIME [id number] 14:21:00 * Test Item Value Reference Range Interpretation Comme nts PTT ACTIVATED (test code = APTT) 34.9 secs 26.6-34.6 H Please note new normal range. IS PATIENT ON ANTICOAGULANTS ? YLIST ANTICOAGULANT/ANTI PLT MEDICATION : AspirinHas Lab been notified if Patient is on Heparin Drip? NOIf Yes, order CBC, OCCULT BLOOD, PT every other day NProthrombin time (PT)2022-06-10 12:10:00* Test Item Value Reference Range Interpretation Comme nts prothrombin time patient (te st code = prothrombin time patient) 11.7 secs 9.7-12.5 international normal ratio ( test code = international normal ratio) 1.05 <2.0 performing lab: (test code = performing lab:) [facility] [id number] 12:10:00 * Test Item Value Reference Range Interpretation Comme nts PTT activated (test code = P TT activated) 34.9 secs 26.6-34.6 H performing lab: (test code = performing lab:) [facility] reactive [id number] 12:10:00* Test Item Value Reference Range Interpretation Comme nts C reactive protein (test cod e = C reactive protein) 0.4 mg/dL <0.9 performing lab: (test code = performing lab:) [facility]Com[facility] 2000 panel - Serum or [id number] 12:10:00* Test Item Value Reference Range Interpretation Comme nts sodium (test code = sodium) 142 mmol/L 136-145 potassium (test code = potassium) 4.3 mmol/L 3.5-5.1 chloride (test code = chloride) 103.0 mmol/L 98-107 carbon dioxide (test code = carbon dioxide) 28.5 mmol/L 21-32 glucose (test code = glucose) 65 mg/dL 70-110 L blood urea nitrogen (test co de = blood urea nitrogen) 18 mg/dL 7-18 glomerular filtration rate ( test code = glomerular filtration rate) 77.9 >60 creatinine (test code = creatinine) 0.96 mg/dL 0.55-1.30 total protein (test code = t otal protein) 7.5 g/dL 6.4-8.2 albumin (test code = albumin) 4.2 g/dL 3.4-5.0 globulin (test code = globulin) 3.3 g/dL 2.2-4.2 albumin/globulin ratio (test code = albumin/globulin ratio) 1.3 0.7-2.0 calcium (test code = calcium) 9.8 mg/dL 8.2-10.1 bilirubin total (test code = bilirubin total) 0.40 mg/dL 0.2-1.00 SGOT/AST (test code = SGOT/AST) 13.0 U/L 15-37 L SGPT/ALT (test code = SGPT/ALT) 18.0 U/L 12-78 alkaline phosphatase total ( test code = alkaline phosphatase total) 85 U/L 46-116 performing lab: (test code = performing lab:) [facility] W Auto Differential panel - [id number] 12:10:00* Test Item Value Reference Range Interpretation Comme nts white blood cell (test code = white blood cell) 8.5 K/mm3 5.7-10.5 red blood cell (test code = red blood cell) 4.83 M/mm3 4.2-5.4 hemoglobin (test code = hemoglobin) 13.2 g/dL 12-16 hematocrit (test code = hematocrit) 40.8 % 37-47 mean cell volume (test code = mean cell volume) 85 fL 80-98 mean cell HGB (test code = m vijay cell HGB) 27.3 pg 27-34 mean cell HGB concentration (test code = mean cell HGB concentration) 32.4 g/dL 30.8-34.1 red cell distribution width (test code = red cell distribution width) 14.1 % 11-16 plt (test code = plt) 246 K/mm3 130-400 mean platelet volume (test c ode = mean platelet volume) 11.1 fL 8.9-12.1 neutrophil % (test code = neutrophil %) 76.0 % 45-70 H lymphocyte % (test code = lymphocyte %) 13.5 % 20-40 L monocyte % (test code = mono cyte %) 8.0 % 3-10 eosinophil % (test code = eosinophil %) 1.5 % 1-5 basophil % (test code = baso eriberto %) 0.6 % 0.0-1.1 neutrophil # (test code = neutrophil #) 6.50 K/mm3 2.00-7.50 lymphocyte # (test code = lymphocyte #) 1.15 K/mm3 1.50-4.00 L monocyte # (test code = mono cyte #) 0.68 K/mm3 0.2-0.8 eosinophil # (test code = eosinophil #) 0.13 K/mm3 0.04-0.4 basophil # (test code = baso eriberto #) 0.05 K/mm3 0.02-0.10 manual diff required (test c ode = manual diff required) no manual diff nucleated red blood cell (te st code = nucleated red blood cell) 0 % 0-0 performing lab: (test code = performing lab:) [facility] [id number] 12:10:00* Test Item Value Reference Range Interpretation Comme nts sed rate (test code = sed rate) 46 mm/HR 0-15 H performing lab: (test code = performing lab:) [facility] St[facility] aureus [Presence] in Specimen by Organism specific [id number] 12:10:00* Test Item Value Reference Range Interpretation Comme nts MRSA surveillance screen (te st code = MRSA surveillance screen) see below performing lab: (test code = performing lab:) [facility]O [id number] 15:20:00* Test Item Value Reference Range Interpretation Comme nts WHITE BLOOD CELL (test code = WBC) 11.7 K/mm3 5.7-10.5 H RED BLOOD CELL (test code = RBC) 4.45 M/mm3 4.2-5.4 N HEMOGLOBIN (test code = HGB) 12.2 g/dL 12-16 N HEMATOCRIT (test code = HCT) 37.6 % 37-47 N MEAN CELL VOLUME (test code = MCV) 85 fL 80-98 N MEAN CELL HGB (test code = MCH) 27.4 pg 27-34 N MEAN CELL HGB CONCENTRATION (test code = MCHC) 32.4 g/dL 30.8-34.1 N RED CELL DISTRIBUTION WIDTH (test code = RDW) 13.2 % 11-16 N PLT (test code = PLT) 283 K/mm3 130-400 N MEAN PLATELET VOLUME (test c ode = MPV) 10.7 fL 8.9-12.1 N NEUTROPHIL % (test code = NT%) 75.4 % 45-70 H LYMPHOCYTE % (test code = LY%) 14.8 % 20-40 L MONOCYTE % (test code = MO%) 7.3 % 3-10 N EOSINOPHIL % (test code = EO%) 1.8 % 1-5 N BASOPHIL % (test code = BA%) 0.4 % 0.0-1.1 N NEUTROPHIL # (test code = NT#) 8.83 K/mm3 2.00-7.50 H LYMPHOCYTE # (test code = LY#) 1.74 K/mm3 1.50-4.00 N MONOCYTE # (test code = MO#) 0.86 K/mm3 0.2-0.8 H EOSINOPHIL # (test code = EO#) 0.21 K/mm3 0.04-0.4 N BASOPHIL # (test code = BA#) 0.05 K/mm3 0.02-0.10 N MANUAL DIFF REQUIRED (test c ode = MDIFF) NO MANUAL DIFF NUCLEATED RED BLOOD CELL (te st code = NRBC) 0 % 0-0 N SED [id number] 15:20:00* Test Item Value Reference Range Interpretation Comme nts SED RATE (test code = SEDW) 55 mm/hr 0-15 H PROTHROMBIN [id number] 14:57:00* Test Item Value Reference Range Interpretation Comme nts PROTHROMBIN TIME PATIENT (test code = PTP) 11.6 secs 9.7-12.5 N Please note new normal range. INTERNATIONAL NORMAL RATIO (test code = INR) 1.04 <2.0 RECOMMENDED THER APEUTIC RANGE FOR ORAL ANTICOAGULANTTREATMENT: CONDITION INRProphylaxis of venous thrombosis in 2.0 - 3.0 high-risk medical or surgical patientsTreatment of venous thrombosis 2.0 - 3.0Prevention of embolism 2.0 - 3.0Prevention of recurrent embolism, or 3.0 - 4.5 patients with mechanical prosthetic intravascular valves IS PATIENT ON ANTICOAGULANTS ? YLIST ANTICOAGULANT/ANTI PLT MEDICATION : AspirinHas Lab been notified if Patient is on Heparin Drip? NOIf Yes, order CBC, OCCULT BLOOD, PT every other day NTHROMBOPLASTIN TIME [id number] 14:57:00* Test Item Value Reference Range Interpretation Comme nts PTT ACTIVATED (test code = APTT) 34.9 secs 26.6-34.6 H Please note new normal range. IS PATIENT ON ANTICOAGULANTS ? YLIST ANTICOAGULANT/ANTI PLT MEDICATION : AspirinHas Lab been notified if Patient is on Heparin Drip? NOIf Yes, order CBC, OCCULT BLOOD, PT every other day NCOMPREHENSIVE METABOLIC [id number] 14:55:00* Test Item Value Reference Range Interpretation Comme nts SODIUM (test code = NA) 140 mmol/L 136-145 N POTASSIUM (test code = K) 4.2 mmol/L 3.5-5.1 N CHLORIDE (test code = CL) 102.0 mmol/L 98-107 N CARBON DIOXIDE (test code = CO2) 27.8 mmol/L 21-32 N GLUCOSE (test code = GLU) 92 mg/dL 70-110 N BLOOD UREA NITROGEN (test code = BUN) 26 mg/dL 7-18 H GLOMERULAR FILTRATION RATE (test code = GFR) 60.2 >60 Unit of m easure: mL/min/1.73 [id number] Range:Healthy Adults >90 mL/min/1.73 m2 For Chronic Kidney Disease: Stage II Mild Decrease in GFR 60-90 Stage III Moderate Decrease in GFR 30-59 Stage IV Severe Decrease in GFR 15-29 Stage V Kidney Failure <15 CREATININE (test code = CREAT) 1.20 mg/dL 0.55-1.30 N TOTAL PROTEIN (test code = PROT) 7.2 g/dL 6.4-8.2 N ALBUMIN (test code = ALB) 3.7 g/dL 3.4-5.0 N GLOBULIN (test code = GLOB) 3.5 g/dL 2.2-4.2 N ALBUMIN/GLOBULIN RATIO (test code = A/G) 1.1 0.7-2.0 N CALCIUM (test code = CA) 9.5 mg/dL 8.2-10.1 N BILIRUBIN TOTAL (test code = BILT) 0.30 mg/dL 0.2-1.00 N SGOT/AST (test code = AST) 15.0 U/L 15-37 N SGPT/ALT (test code = ALT) 15.0 U/L 12-78 N Please note new normal range. ALKALINE PHOSPHATASE TOTAL (test code = ALKP) 81 U/L 46-116 N C REACTIVE [id number] 14:53:00* Test Item Value Reference Range Interpretation Comme nts C REACTIVE PROTEIN (test cod e = CRP) 4.0 mg/dL <0.9 C reactive [id number] 13:25:00* Test Item Value Reference Range Interpretation Comme nts C reactive protein (test cod e = C reactive protein) 4.0 mg/dL <0.9 performing lab: (test code = performing lab:) [facility]Com[facility] 2000 [facility] - Serum or [id number] 13:25:00* Test Item Value Reference Range Interpretation Comme nts sodium (test code = sodium) 140 mmol/L 136-145 potassium (test code = potassium) 4.2 mmol/L 3.5-5.1 chloride (test code = chloride) 102.0 mmol/L 98-107 carbon dioxide (test code = carbon dioxide) 27.8 mmol/L 21-32 glucose (test code = glucose) 92 mg/dL 70-110 blood urea nitrogen (test co de = blood urea nitrogen) 26 mg/dL 7-18 H glomerular filtration rate ( test code = glomerular filtration rate) 60.2 >60 creatinine (test code = creatinine) 1.20 mg/dL 0.55-1.30 total protein (test code = t otal protein) 7.2 g/dL 6.4-8.2 albumin (test code = albumin) 3.7 g/dL 3.4-5.0 globulin (test code = globulin) 3.5 g/dL 2.2-4.2 albumin/globulin ratio (test code = albumin/globulin ratio) 1.1 0.7-2.0 calcium (test code = calcium) 9.5 mg/dL 8.2-10.1 bilirubin total (test code = bilirubin total) 0.30 mg/dL 0.2-1.00 SGOT/AST (test code = SGOT/AST) 15.0 U/L 15-37 SGPT/ALT (test code = SGPT/ALT) 15.0 U/L 12-78 alkaline phosphatase total ( test code = alkaline phosphatase total) 81 U/L 46-116 performing lab: (test code = performing lab:) [facility] HospitalProthrombin time (PT)2022-05-08 13:25:00* Test Item Value Reference Range Interpretation Comme nts prothrombin time patient (te st code = prothrombin time patient) 11.6 secs 9.7-12.5 international normal ratio ( test code = international normal ratio) 1.04 <2.0 performing lab: (test code = performing lab:) [facility] Hospitalthromboplastin time [id number] 13:25:00 * Test Item Value Reference Range Interpretation Comme nts PTT activated (test code = P TT activated) 34.9 secs 26.6-34.6 H performing lab: (test code = performing lab:) [facility] HospitalCBC W Auto Differential panel - [id number] 13:25:00* Test Item Value Reference Range Interpretation Comme nts white blood cell (test code = white blood cell) 11.7 K/mm3 5.7-10.5 H red blood cell (test code = red blood cell) 4.45 M/mm3 4.2-5.4 hemoglobin (test code = hemoglobin) 12.2 g/dL 12-16 hematocrit (test code = hematocrit) 37.6 % 37-47 mean cell volume (test code = mean cell volume) 85 fL 80-98 mean cell HGB (test code = m vijay cell HGB) 27.4 pg 27-34 mean cell HGB concentration (test code = mean cell HGB concentration) 32.4 g/dL 30.8-34.1 red cell distribution width (test code = red cell distribution width) 13.2 % 11-16 plt (test code = plt) 283 K/mm3 130-400 mean platelet volume (test c ode = mean platelet volume) 10.7 fL 8.9-12.1 neutrophil % (test code = neutrophil %) 75.4 % 45-70 H lymphocyte % (test code = lymphocyte %) 14.8 % 20-40 L monocyte % (test code = mono cyte %) 7.3 % 3-10 eosinophil % (test code = eosinophil %) 1.8 % 1-5 basophil % (test code = baso eriberto %) 0.4 % 0.0-1.1 neutrophil # (test code = neutrophil #) 8.83 K/mm3 2.00-7.50 H lymphocyte # (test code = lymphocyte #) 1.74 K/mm3 1.50-4.00 monocyte # (test code = mono cyte #) 0.86 K/mm3 0.2-0.8 H eosinophil # (test code = eosinophil #) 0.21 K/mm3 0.04-0.4 basophil # (test code = baso eriberto #) 0.05 K/mm3 0.02-0.10 manual diff required (test c ode = manual diff required) no manual diff nucleated red blood cell (te st code = nucleated red blood cell) 0 % 0-0 performing lab: (test code = performing lab:) [facility] [id number] 13:25:00* Test Item Value Reference Range Interpretation Comme nts sed rate (test code = sed rate) 55 mm/HR 0-15 H performing lab: (test code = performing lab:) [facility] MedicineBASIC METABOLIC [id number] 06:29:00* Test Item Value Reference Range Interpretation Comme nts SODIUM (test code = NA) 142 mmol/L 136-145 N POTASSIUM (test code = K) 4.9 mmol/L 3.5-5.1 N CHLORIDE (test code = CL) 103.0 mmol/L 98-107 N CARBON DIOXIDE (test code = CO2) 25.8 mmol/L 21-32 N GLUCOSE (test code = GLU) 98 mg/dL 70-110 N BLOOD UREA NITROGEN (test code = BUN) 20 mg/dL 7-18 H GLOMERULAR FILTRATION RATE (test code = GFR) 66.6 >60 Unit of m easure: mL/min/1.73 [id number] Range:Healthy Adults >90 mL/min/1.73 m2 For Chronic Kidney Disease: Stage II Mild Decrease in GFR 60-90 Stage III Moderate Decrease in GFR 30-59 Stage IV Severe Decrease in GFR 15-29 Stage V Kidney Failure <15 CREATININE (test code = CREAT) 1.10 mg/dL 0.55-1.30 N CALCIUM (test code = CA) 9.0 mg/dL 8.2-10.1 N CBC W/AUTO [id number] 06:14:00* Test Item Value Reference Range Interpretation Comme nts WHITE BLOOD CELL (test code = WBC) 12.0 K/mm3 5.7-10.5 H RED BLOOD CELL (test code = RBC) 4.13 M/mm3 4.2-5.4 L HEMOGLOBIN (test code = HGB) 12.2 g/dL 12-16 N HEMATOCRIT (test code = HCT) 36.5 % 37-47 L MEAN CELL VOLUME (test code = MCV) 88 fL 80-98 N MEAN CELL HGB (test code = MCH) 29.5 pg 27-34 N MEAN CELL HGB CONCENTRATION (test code = MCHC) 33.4 g/dL 30.8-34.1 N RED CELL DISTRIBUTION WIDTH (test code = RDW) 13.0 % 11-16 N PLT (test code = PLT) 211 K/mm3 130-400 N MEAN PLATELET VOLUME (test c ode = MPV) 11.1 fL 8.9-12.1 N NEUTROPHIL % (test code = NT%) 83.2 % 45-70 H LYMPHOCYTE % (test code = LY%) 8.2 % 20-40 L MONOCYTE % (test code = MO%) 7.8 % 3-10 N EOSINOPHIL % (test code = EO%) 0.1 % 1-5 L BASOPHIL % (test code = BA%) 0.3 % 0.0-1.1 N NEUTROPHIL # (test code = NT#) 9.99 K/mm3 2.00-7.50 H LYMPHOCYTE # (test code = LY#) 0.98 K/mm3 1.50-4.00 L MONOCYTE # (test code = MO#) 0.93 K/mm3 0.2-0.8 H EOSINOPHIL # (test code = EO#) 0.01 K/mm3 0.04-0.4 L BASOPHIL # (test code = BA#) 0.03 K/mm3 0.02-0.10 N MANUAL DIFF REQUIRED (test c ode = MDIFF) NO MANUAL DIFF NUCLEATED RED BLOOD CELL (te st code = NRBC) 0 % 0-0 N CBC W/AUTO [id number] 18:49:00* Test Item Value Reference Range Interpretation Comme nts WHITE BLOOD CELL (test code = WBC) 8.4 K/mm3 5.7-10.5 N RED BLOOD CELL (test code = RBC) 4.81 M/mm3 4.2-5.4 N HEMOGLOBIN (test code = HGB) 14.1 g/dL 12-16 N HEMATOCRIT (test code = HCT) 41.7 % 37-47 N MEAN CELL VOLUME (test code = MCV) 87 fL 80-98 N MEAN CELL HGB (test code = MCH) 29.3 pg 27-34 N MEAN CELL HGB CONCENTRATION (test code = MCHC) 33.8 g/dL 30.8-34.1 N RED CELL DISTRIBUTION WIDTH (test code = RDW) 12.7 % 11-16 N PLT (test code = PLT) 265 K/mm3 130-400 N MEAN PLATELET VOLUME (test c ode = MPV) 10.7 fL 8.9-12.1 N NEUTROPHIL % (test code = NT%) 69.5 % 45-70 N LYMPHOCYTE % (test code = LY%) 20.0 % 20-40 N MONOCYTE % (test code = MO%) 7.4 % 3-10 N EOSINOPHIL % (test code = EO%) 2.3 % 1-5 N BASOPHIL % (test code = BA%) 0.6 % 0.0-1.1 N NEUTROPHIL # (test code = NT#) 5.83 K/mm3 2.00-7.50 N LYMPHOCYTE # (test code = LY#) 1.68 K/mm3 1.50-4.00 N MONOCYTE # (test code = MO#) 0.62 K/mm3 0.2-0.8 N EOSINOPHIL # (test code = EO#) 0.19 K/mm3 0.04-0.4 N BASOPHIL # (test code = BA#) 0.05 K/mm3 0.02-0.10 N MANUAL DIFF REQUIRED (test c ode = MDIFF) NO MANUAL DIFF NUCLEATED RED BLOOD CELL (te st code = NRBC) 0 % 0-0 N SED [id number] 18:49:00* Test Item Value Reference Range Interpretation Comme nts SED RATE (test code = SEDW) 18 mm/hr 0-15 H COMPREHENSIVE METABOLIC [id number] 18:14:00* Test Item Value Reference Range Interpretation Comme nts SODIUM (test code = NA) 140 mmol/L 136-145 N POTASSIUM (test code = K) 4.1 mmol/L 3.5-5.1 N CHLORIDE (test code = CL) 103.0 mmol/L 98-107 N CARBON DIOXIDE (test code = CO2) 26.9 mmol/L 21-32 N GLUCOSE (test code = GLU) 82 mg/dL 70-110 N BLOOD UREA NITROGEN (test code = BUN) 20 mg/dL 7-18 H GLOMERULAR FILTRATION RATE (test code = GFR) 59.6 >60 Unit of m easure: mL/min/1.73 [id number] Range:Healthy Adults >90 mL/min/1.73 m2 For Chronic Kidney Disease: Stage II Mild Decrease in GFR 60-90 Stage III Moderate Decrease in GFR 30-59 Stage IV Severe Decrease in GFR 15-29 Stage V Kidney Failure <15 CREATININE (test code = CREAT) 1.21 mg/dL 0.55-1.30 N TOTAL PROTEIN (test code = PROT) 7.0 g/dL 6.4-8.2 N ALBUMIN (test code = ALB) 4.0 g/dL 3.4-5.0 N GLOBULIN (test code = GLOB) 3.0 g/dL 2.2-4.2 N ALBUMIN/GLOBULIN RATIO (test code = A/G) 1.3 0.7-2.0 N CALCIUM (test code = CA) 9.8 mg/dL 8.2-10.1 N BILIRUBIN TOTAL (test code = BILT) 0.40 mg/dL 0.2-1.00 N SGOT/AST (test code = AST) 19.0 U/L 15-37 N SGPT/ALT (test code = ALT) 25.0 U/L 12-78 N Please note new normal range. ALKALINE PHOSPHATASE TOTAL (test code = ALKP) 80 U/L 46-116 N C REACTIVE [id number] 18:13:00* Test Item Value Reference Range Interpretation Comme nts C REACTIVE PROTEIN (test cod e = CRP) < 0.2 mg/dL <0.9 PROTHROMBIN [id number] 18:12:00* Test Item Value Reference Range Interpretation Comme nts PROTHROMBIN TIME PATIENT (test code = PTP) 10.9 secs 9.7-12.5 N Please note new normal range. INTERNATIONAL NORMAL RATIO (test code = INR) 0.98 <2.0 RECOMMENDED THER APEUTIC RANGE FOR ORAL ANTICOAGULANTTREATMENT: CONDITION INRProphylaxis of venous thrombosis in 2.0 - 3.0 high-risk medical or surgical patientsTreatment of venous thrombosis 2.0 - 3.0Prevention of embolism 2.0 - 3.0Prevention of recurrent embolism, or 3.0 - 4.5 patients with mechanical prosthetic intravascular valves IS PATIENT ON ANTICOAGULANTS ? YLIST ANTICOAGULANT/ANTI PLT MEDICATION : AspirinHas Lab been notified if Patient is on Heparin Drip? NOIf Yes, order CBC, OCCULT BLOOD, PT every other day NTHROMBOPLASTIN TIME [id number] 18:12:00* Test Item Value Reference Range Interpretation Comme nts PTT ACTIVATED (test code = APTT) 34.7 secs 26.6-34.6 H Please note new normal range. IS PATIENT ON ANTICOAGULANTS ? YLIST ANTICOAGULANT/ANTI PLT MEDICATION : AspirinHas Lab been notified if Patient is on Heparin Drip? NOIf Yes, order CBC, OCCULT BLOOD, PT every other day N- CT LOWER EXTRM W/O C [id number] 10:08:00 [facility] 1955 Sex: M Patient Name: PATY KC Unit No: [id number] EXAMS: CPT CODE: [id number] CT LOWER EXTRM W/[place] [address] CT OF THE LEFT ANKLE WITH SAGITTAL AND CORONAL RECONSTRUCTIONS DIAGNOSIS: Comparison is made with the previous examination of September 05, 2021. 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 The area of fusion between the graft bone and the posterior tibia has broken down and there is no longer fusion to the tibia. No fusion of the tibiotalar joint is seen. Tenuous partial fusion of the subtalar joint is seen comprising approximately 10%. Lucency is noted surrounding the nail and the screws consistent with loosening. COMMENT: COMPARISON: September 05, 2021 Scans were performed with thin sections and reconstructions were obtained. CT radiation dose optimization is achieved for this examination by the use of a CT protocol in accordance with ACR practice standards and adherence to shell mold bonder's recommendations. An intramedullary nail is seen traversing the tibiotalar and subtalar joints with interlocking screws. Postsurgical changes are as described. at 1008 Reported and signed by: Zack Smith MD CC: Naren Simpson MD; Hernesto Arias MD Technologist: Lynn Vicente, RT(R) CTDI: DLP: Trnscrpt: 02/21/2022 (1008) t.SDR.JCL [facility] NAME: PATY KC [address] [facility] PHYS: HARSHAL. - Naren Simpson MD : 1955 AGE: 66 SEX: M [place] [address] LOC: Y.RAD PHONE #: [phone] EXAM DATE: 02/20/2022 STATUS: DEP CLI FAX #: [phone] RAD #: D/C DT PAGE 1 Signed Report Patient Name:PATY KC Unit No: [id number] EXAMS: CPT CODE: [id number] CT LOWER EXTRM W/[place] [address] (Continued) Orig Print D/T: S: 02/21/2022 (1011) [facility] NAME: PATY KC [address] [place] [address] PHYS: HARSHAL. - Naren Simpson MD : 1955 AGE: 66 SEX: M [place] [address] LOC: Y.RAD PHONE #: [phone] EXAM DATE: 02/20/2022 STATUS: DEP CLI FAX #: [phone] RAD #: D/C DT PAGE 2 Signed ReportSED [id number] 17:40:00* Test Item Value Reference Range Interpretation Comme nts SED RATE (test code = SEDW) 6 mm/hr 0-15 N CBC W/AUTO [id number] 17:40:00* Test Item Value Reference Range Interpretation Comme nts WHITE BLOOD CELL (test code = WBC) 10.7 K/mm3 5.7-10.5 H RED BLOOD CELL (test code = RBC) 4.79 M/mm3 4.2-5.4 N HEMOGLOBIN (test code = HGB) 14.2 g/dL 12-16 N HEMATOCRIT (test code = HCT) 42.3 % 37-47 N MEAN CELL VOLUME (test code = MCV) 88 fL 80-98 N MEAN CELL HGB (test code = MCH) 29.6 pg 27-34 N MEAN CELL HGB CONCENTRATION (test code = MCHC) 33.6 g/dL 30.8-34.1 N RED CELL DISTRIBUTION WIDTH (test code = RDW) 12.9 % 11-16 N PLT (test code = PLT) 257 K/mm3 130-400 N MEAN PLATELET VOLUME (test c ode = MPV) 10.9 fL 8.9-12.1 N NEUTROPHIL % (test code = NT%) 69.4 % 45-70 N LYMPHOCYTE % (test code = LY%) 20.0 % 20-40 N MONOCYTE % (test code = MO%) 7.7 % 3-10 N EOSINOPHIL % (test code = EO%) 2.0 % 1-5 N BASOPHIL % (test code = BA%) 0.6 % 0.0-1.1 N NEUTROPHIL # (test code = NT#) 7.44 K/mm3 2.00-7.50 N LYMPHOCYTE # (test code = LY#) 2.14 K/mm3 1.50-4.00 N MONOCYTE # (test code = MO#) 0.83 K/mm3 0.2-0.8 H EOSINOPHIL # (test code = EO#) 0.21 K/mm3 0.04-0.4 N BASOPHIL # (test code = BA#) 0.06 K/mm3 0.02-0.10 N MANUAL DIFF REQUIRED (test c ode = MDIFF) NO MANUAL DIFF NUCLEATED RED BLOOD CELL (te st code = NRBC) 0 % 0-0 N C REACTIVE [id number] 16:27:00* Test Item Value Reference Range Interpretation Comme nts C REACTIVE PROTEIN (test cod e = CRP) < 0.2 mg/dL <0.9 COMPREHENSIVE METABOLIC [id number] 16:27:00* Test Item Value Reference Range Interpretation Comme nts SODIUM (test code = NA) 142 mmol/L 136-145 N POTASSIUM (test code = K) 4.6 mmol/L 3.5-5.1 N CHLORIDE (test code = CL) 103.0 mmol/L 98-107 N CARBON DIOXIDE (test code = CO2) 29.3 mmol/L 21-32 N GLUCOSE (test code = GLU) 89 mg/dL 70-110 N BLOOD UREA NITROGEN (test code = BUN) 18 mg/dL 7-18 N GLOMERULAR FILTRATION RATE (test code = GFR) 59.6 >60 Unit of m easure: mL/min/1.73 [id number] Range:Healthy Adults >90 mL/min/1.73 m2 For Chronic Kidney Disease: Stage II Mild Decrease in GFR 60-90 Stage III Moderate Decrease in GFR 30-59 Stage IV Severe Decrease in GFR 15-29 Stage V Kidney Failure <15 CREATININE (test code = CREAT) 1.21 mg/dL 0.55-1.30 N TOTAL PROTEIN (test code = PROT) 7.2 g/dL 6.4-8.2 N ALBUMIN (test code = ALB) 4.3 g/dL 3.4-5.0 N GLOBULIN (test code = GLOB) 2.9 g/dL 2.2-4.2 N ALBUMIN/GLOBULIN RATIO (test code = A/G) 1.5 0.7-2.0 N CALCIUM (test code = CA) 10.1 mg/dL 8.2-10.1 N BILIRUBIN TOTAL (test code = BILT) 0.40 mg/dL 0.2-1.00 N SGOT/AST (test code = AST) 20.0 U/L 15-37 N SGPT/ALT (test code = ALT) 30.0 U/L 12-78 N Please note new normal range. ALKALINE PHOSPHATASE TOTAL (test code = ALKP) 77 U/L 46-116 N PROTHROMBIN [id number] 16:23:00* Test Item Value Reference Range Interpretation Comme nts PROTHROMBIN TIME PATIENT (test code = PTP) 10.8 secs 9.7-12.5 N Please note new normal range. INTERNATIONAL NORMAL RATIO (test code = INR) 0.97 <2.0 RECOMMENDED THER APEUTIC RANGE FOR ORAL ANTICOAGULANTTREATMENT: CONDITION INRProphylaxis of venous thrombosis in 2.0 - 3.0 high-risk medical or surgical patientsTreatment of venous thrombosis 2.0 - 3.0Prevention of embolism 2.0 - 3.0Prevention of recurrent embolism, or 3.0 - 4.5 patients with mechanical prosthetic intravascular valves IS PATIENT ON ANTICOAGULANTS ? YLIST ANTICOAGULANT/ANTI PLT MEDICATION : AspirinHas Lab been notified if Patient is on Heparin Drip? NOIf Yes, order CBC, OCCULT BLOOD, PT every other day NTHROMBOPLASTIN TIME [id number] 16:23:00* Test Item Value Reference Range Interpretation Comme nts PTT ACTIVATED (test code = APTT) 36.5 secs 26.6-34.6 H Please note new normal range. IS PATIENT ON ANTICOAGULANTS ? YLIST ANTICOAGULANT/ANTI PLT MEDICATION : AspirinHas Lab been notified if Patient is on Heparin Drip? NOIf Yes, order CBC, OCCULT BLOOD, PT every other day N- CT LOWER EXTRM W/O C [id number] 08:46:00 [facility] 1955 Sex: M Patient Name: PATY KC Unit No: [id number] EXAMS: CPT CODE: [id number] CT LOWER EXTRM W/[place] [address] CT OF THE LEFT ANKLE WITH SAGITTAL AND CORONAL RECONSTRUCTIONS DIAGNOSIS: Graft bone is seen posteriorly which is fused to the distal tibia and the talus medially. No definite fusion to the calcaneus is seen. Also noted is an erosive lesion involving the medial head of the talus with cartilage thinning and subluxation of the medial talonavicular joint. Sclerotic change in the head of the talus laterally is noted with possible necrosis. No collapse is seen. COMMENT: COMPARISON: No prior exams available. Scans were performed with thin sections and reconstructions were obtained. CT radiation dose optimization is achieved for this examination by the use of a CT protocol in accordance with ACR practice standards and adherence to shell mold bonder's recommendations. An intramedullary nail extends on the tibia through the talus and calcaneus. Interlocking screws are present. The findings are as described. Diffuse soft tissue swelling is present. at 0846 Reported and signed by: Zack Smith MD CC: Naren Seymour; Hernesto Arias MD Technologist: Andres BoggsRT(R) CTDI: DLP: Trnscrpt: 09/05/2021 (0846) [email or web address] [facility] NAME: PATY KC [address] [facility] PHYS: BR - Naren Simpson MD : 1955 AGE: 65 SEX: M [place] [address] LOC: Y.RAD PHONE #: [phone] EXAM DATE: 09/05/2021 STATUS: REG CLI FAX #: [phone] RAD #: D/C DT PAGE 1 Signed Report Patient Name: PATY KC Unit No: [id number] EXAMS: CPT CODE: [id number] CT LOWER EXTRM W/[place] [address] (Continued) Orig Print D/T: S: 09/05/2021 (0849) [facility] NAME: PATY KC [address] [facility] PHYS: HARSHAL. - Naren Simpson MD : 1955 AGE: 65 SEX: M [place] [id number] LOC: Y.RAD PHONE #: [phone] EXAM DATE: 09/05/2021 STATUS: REG CLI FAX #: [phone] RAD #: D/C DT PAGE 2 Signed ReportBASIC METABOLIC [id number] 12:45:00* Test Item Value Reference Range Interpretation Comme nts SODIUM (test code = NA) 138 mmol/L 136-145 N POTASSIUM (test code = K) 3.7 mmol/L 3.5-5.1 N CHLORIDE (test code = CL) 101.0 mmol/L 98-107 N CARBON DIOXIDE (test code = CO2) 29.8 mmol/L 21-32 N GLUCOSE (test code = GLU) 96 mg/dL 70-110 N BLOOD UREA NITROGEN (test code = BUN) 22 mg/dL 7-18 H GLOMERULAR FILTRATION RATE (test code = GFR) 48.9 >60 Unit of m easure: mL/min/1.73 [id number] Range:Healthy Adults >90 mL/min/1.73 m2 For Chronic Kidney Disease: Stage II Mild Decrease in GFR 60-90 Stage III Moderate Decrease in GFR 30-59 Stage IV Severe Decrease in GFR 15-29 Stage V Kidney Failure <15 CREATININE (test code = CREAT) 1.44 mg/dL 0.55-1.30 H CALCIUM (test code = CA) 8.8 mg/dL 8.2-10.1 N CBC W/AUTO [id number] 12:20:00* Test Item Value Reference Range Interpretation Comme nts WHITE BLOOD CELL (test code = WBC) 12.4 K/mm3 5.7-10.5 H RED BLOOD CELL (test code = RBC) 3.87 M/mm3 4.2-5.4 L HEMOGLOBIN (test code = HGB) 11.8 g/dL 12-16 L HEMATOCRIT (test code = HCT) 34.3 % 37-47 L MEAN CELL VOLUME (test code = MCV) 89 fL 80-98 N MEAN CELL HGB (test code = MCH) 30.5 pg 27-34 N MEAN CELL HGB CONCENTRATION (test code = MCHC) 34.4 g/dL 30.8-34.1 H RED CELL DISTRIBUTION WIDTH (test code = RDW) 13.5 % 11-16 N PLT (test code = PLT) 161 K/mm3 130-400 N MEAN PLATELET VOLUME (test c ode = MPV) 10.5 fL 8.9-12.1 N NEUTROPHIL % (test code = NT%) 78.1 % 45-70 H LYMPHOCYTE % (test code = LY%) 9.3 % 20-40 L MONOCYTE % (test code = MO%) 10.6 % 3-10 H EOSINOPHIL % (test code = EO%) 1.4 % 1-5 N BASOPHIL % (test code = BA%) 0.4 % 0.0-1.1 N NEUTROPHIL # (test code = NT#) 9.64 K/mm3 2.00-7.50 H LYMPHOCYTE # (test code = LY#) 1.15 K/mm3 1.50-4.00 L MONOCYTE # (test code = MO#) 1.31 K/mm3 0.2-0.8 H EOSINOPHIL # (test code = EO#) 0.17 K/mm3 0.04-0.4 N BASOPHIL # (test code = BA#) 0.05 K/mm3 0.02-0.10 N MANUAL DIFF REQUIRED (test c ode = MDIFF) NO MANUAL DIFF NUCLEATED RED BLOOD CELL (te st code = NRBC) 0 % 0-0 N BASIC METABOLIC [id number] 06:48:00* Test Item Value Reference Range Interpretation Comme nts SODIUM (test code = NA) 140 mmol/L 136-145 N POTASSIUM (test code = K) 4.0 mmol/L 3.5-5.1 N CHLORIDE (test code = CL) 101.0 mmol/L 98-107 N CARBON DIOXIDE (test code = CO2) 31.4 mmol/L 21-32 N GLUCOSE (test code = GLU) 104 mg/dL 70-110 N BLOOD UREA NITROGEN (test code = BUN) 26 mg/dL 7-18 H GLOMERULAR FILTRATION RATE (test code = GFR) 45.3 >60 Unit of m easure: mL/min/1.73 [id number] Range:Healthy Adults >90 mL/min/1.73 m2 For Chronic Kidney Disease: Stage II Mild Decrease in GFR 60-90 Stage III Moderate Decrease in GFR 30-59 Stage IV Severe Decrease in GFR 15-29 Stage V Kidney Failure <15 CREATININE (test code = CREAT) 1.54 mg/dL 0.55-1.30 H CALCIUM (test code = CA) 8.8 mg/dL 8.2-10.1 N CBC W/AUTO [id number] 06:12:00* Test Item Value Reference Range Interpretation Comme nts WHITE BLOOD CELL (test code = WBC) 13.0 K/mm3 5.7-10.5 H RED BLOOD CELL (test code = RBC) 4.19 M/mm3 4.2-5.4 L HEMOGLOBIN (test code = HGB) 12.5 g/dL 12-16 N HEMATOCRIT (test code = HCT) 37.8 % 37-47 N MEAN CELL VOLUME (test code = MCV) 90 fL 80-98 N MEAN CELL HGB (test code = MCH) 29.8 pg 27-34 N MEAN CELL HGB CONCENTRATION (test code = MCHC) 33.1 g/dL 30.8-34.1 N RED CELL DISTRIBUTION WIDTH (test code = RDW) 13.8 % 11-16 N PLT (test code = PLT) 201 K/mm3 130-400 N MEAN PLATELET VOLUME (test c ode = MPV) 10.9 fL 8.9-12.1 N NEUTROPHIL % (test code = NT%) 80.0 % 45-70 H LYMPHOCYTE % (test code = LY%) 9.7 % 20-40 L MONOCYTE % (test code = MO%) 9.5 % 3-10 N EOSINOPHIL % (test code = EO%) 0.1 % 1-5 L BASOPHIL % (test code = BA%) 0.2 % 0.0-1.1 N NEUTROPHIL # (test code = NT#) 10.41 K/mm3 2.00-7.50 H LYMPHOCYTE # (test code = LY#) 1.27 K/mm3 1.50-4.00 L MONOCYTE # (test code = MO#) 1.24 K/mm3 0.2-0.8 H EOSINOPHIL # (test code = EO#) 0.01 K/mm3 0.04-0.4 L BASOPHIL # (test code = BA#) 0.03 K/mm3 0.02-0.10 N MANUAL DIFF REQUIRED (test c ode = MDIFF) NO MANUAL DIFF NUCLEATED RED BLOOD CELL (te st code = NRBC) 0 % 0-0 N C REACTIVE [id number] 21:57:00* Test Item Value Reference Range Interpretation Comme nts C REACTIVE PROTEIN (test cod e = CRP) < 0.2 mg/dL <0.9 ACUTE HEPATITIS [id number] 21:57:00* Test Item Value Reference Range Interpretation Comme nts AB HEPATITIS A IGM (test cod e = HAVMAB) NONREACTIVE NONREACTIVE AG HEPATITIS B SURFACE (test code = HBSAG) NONREACTIVE NONREACTIVE AB HEPATITIS B CORE IGM (carlita t code = HBCMAB) NONREACTIVE NONREACTIVE AB HEPATITIS C (test code = HCVAB) NONREACTIVE NONREACTIVE SIGNAL TO CUTOFF (test code = CUTOFF) < 0.02 <0.80 AB HIV [id number] 21:57:00* Test Item Value Reference Range Interpretation Comme nts AB HIV 1 (test code = HIV1AB) NONREACTIVE NONREACTIVE Done by [employer] HIV Ag/Ab Combo Screen ACUTE HEPATITIS [id number] 21:56:00* Test Item Value Reference Range Interpretation Comme nts AB HEPATITIS A IGM (test cod e = HAVMAB) NONREACTIVE NONREACTIVE AG HEPATITIS B SURFACE (test code = HBSAG) NONREACTIVE NONREACTIVE AB HEPATITIS B CORE IGM (carlita t code = HBCMAB) NONREACTIVE NONREACTIVE AB HEPATITIS C (test code = HCVAB) NONREACTIVE NONREACTIVE SIGNAL TO CUTOFF (test code = CUTOFF) <0.02 <0.80 N AB HIV 1 21:56:00* Test Item Value Reference Range Interpretation Comme nts AB HIV 1 2 (test code = [id number]) NONREACTIVE NONREACTIVE Done by [employer] HIV Ag/Ab Combo Screen CBC W/AUTO [id number] 19:26:00* Test Item Value Reference Range Interpretation Comme nts WHITE BLOOD CELL (test code = WBC) 9.7 K/mm3 5.7-10.5 N RED BLOOD CELL (test code = RBC) 4.47 M/mm3 4.2-5.4 N HEMOGLOBIN (test code = HGB) 13.5 g/dL 12-16 N HEMATOCRIT (test code = HCT) 38.7 % 37-47 N MEAN CELL VOLUME (test code = MCV) 87 fL 80-98 N MEAN CELL HGB (test code = MCH) 30.2 pg 27-34 N MEAN CELL HGB CONCENTRATION (test code = MCHC) 34.9 g/dL 30.8-34.1 H RED CELL DISTRIBUTION WIDTH (test code = RDW) 13.7 % 11-16 N PLT (test code = PLT) 242 K/mm3 130-400 N MEAN PLATELET VOLUME (test c ode = MPV) 11.2 fL 8.9-12.1 N NEUTROPHIL % (test code = NT%) 65.6 % 45-70 N LYMPHOCYTE % (test code = LY%) 23.3 % 20-40 N MONOCYTE % (test code = MO%) 8.9 % 3-10 N EOSINOPHIL % (test code = EO%) 1.4 % 1-5 N BASOPHIL % (test code = BA%) 0.6 % 0.0-1.1 N NEUTROPHIL # (test code = NT#) 6.34 K/mm3 2.00-7.50 N LYMPHOCYTE # (test code = LY#) 2.25 K/mm3 1.50-4.00 N MONOCYTE # (test code = MO#) 0.86 K/mm3 0.2-0.8 H EOSINOPHIL # (test code = EO#) 0.14 K/mm3 0.04-0.4 N BASOPHIL # (test code = BA#) 0.06 K/mm3 0.02-0.10 N MANUAL DIFF REQUIRED (test c ode = MDIFF) NO MANUAL DIFF NUCLEATED RED BLOOD CELL (te st code = NRBC) 0 % 0-0 N SED [id number] 19:26:00* Test Item Value Reference Range Interpretation Comme nts SED RATE (test code = SEDW) 4 mm/hr 0-15 N C REACTIVE [id number] 17:37:00* Test Item Value Reference Range Interpretation Comme nts C REACTIVE PROTEIN (test cod e = CRP) < 0.2 mg/dL <0.9 ACUTE HEPATITIS [id number] 17:37:00* Test Item Value Reference Range Interpretation Comme nts AB HEPATITIS A IGM (test code = HAVMAB) NONREAC TIVE AG HEPATITIS B SURFACE (test code = HBSAG) NONREACTIVE AB HEPATITIS B CORE IGM (carlita t code = HBCMAB) AB HEPATITIS C (test code = HCVAB) NONREACTIVE SIGNAL TO CUTOFF (test code = CUTOFF) AB HIV 17:37:00* Test Item Value Reference Range Interpretation Comme nts AB HIV 1 (test code = HIV1AB) NONREACTIVE COMPREHENSIVE METABOLIC [id number] 17:37:00* Test Item Value Reference Range Interpretation Comme nts SODIUM (test code = NA) 142 mmol/L 136-145 N POTASSIUM (test code = K) 3.6 mmol/L 3.5-5.1 N CHLORIDE (test code = CL) 104.0 mmol/L 98-107 N CARBON DIOXIDE (test code = CO2) 28.3 mmol/L 21-32 N GLUCOSE (test code = GLU) 83 mg/dL 70-110 N BLOOD UREA NITROGEN (test code = BUN) 29 mg/dL 7-18 H GLOMERULAR FILTRATION RATE (test code = GFR) 55.6 >60 Unit of m easure: mL/min/1.73 [id number] Range:Healthy Adults >90 mL/min/1.73 m2 For Chronic Kidney Disease: Stage II Mild Decrease in GFR 60-90 Stage III Moderate Decrease in GFR 30-59 Stage IV Severe Decrease in GFR 15-29 Stage V Kidney Failure <15 CREATININE (test code = CREAT) 1.29 mg/dL 0.55-1.30 N TOTAL PROTEIN (test code = PROT) 6.8 g/dL 6.4-8.2 N ALBUMIN (test code = ALB) 4.1 g/dL 3.4-5.0 N GLOBULIN (test code = GLOB) 2.7 g/dL 2.2-4.2 N ALBUMIN/GLOBULIN RATIO (test code = A/G) 1.5 0.7-2.0 N CALCIUM (test code = CA) 9.5 mg/dL 8.2-10.1 N BILIRUBIN TOTAL (test code = BILT) 0.30 mg/dL 0.2-1.00 N SGOT/AST (test code = AST) 16.0 U/L 15-37 N SGPT/ALT (test code = ALT) 28.0 U/L 12-78 N Please note new normal range. ALKALINE PHOSPHATASE TOTAL (test code = ALKP) 59 U/L 46-116 N PROTHROMBIN [id number] 17:22:00* Test Item Value Reference Range Interpretation Comme nts PROTHROMBIN TIME PATIENT (test code = PTP) 10.9 secs 10.1-12.5 N INTERNATIONAL NORMAL RATIO (test code = INR) 0.96 <2.0 RECOMMENDED THER APEUTIC RANGE FOR ORAL ANTICOAGULANTTREATMENT: CONDITION INRProphylaxis of venous thrombosis in 2.0 - 3.0 high-risk medical or surgical patientsTreatment of venous thrombosis 2.0 - 3.0Prevention of embolism 2.0 - 3.0Prevention of recurrent embolism, or 3.0 - 4.5 patients with mechanical prosthetic intravascular valves IS PATIENT ON ANTICOAGULANTS ? NHas Lab been notified if Patient is on Heparin Drip? NOIf Yes, order CBC, OCCULT BLOOD, PT every other day NTHROMBOPLASTIN TIME [id number] 17:22:00* Test Item Value Reference Range Interpretation Comme nts PTT ACTIVATED (test code = APTT) 35.6 secs 24.9-37.0 N IS PATIENT ON ANTICOAGULANTS ? MOas Lab been notified if Patient is on Heparin Drip? NOIf Yes, order CBC, OCCULT BLOOD, PT every other day NCBC W/AUTO DIFF 2021-05-18 17:12:00* Test Item Value Reference Range Interpretation Comme nts WHITE BLOOD CELL (test code = WBC) 9.7 K/mm3 5.7-10.5 N RED BLOOD CELL (test code = RBC) 4.47 M/mm3 4.2-5.4 N HEMOGLOBIN (test code = HGB) 13.5 g/dL 12-16 N HEMATOCRIT (test code = HCT) 38.7 % 37-47 N MEAN CELL VOLUME (test code = MCV) 87 fL 80-98 N MEAN CELL HGB (test code = MCH) 30.2 pg 27-34 N MEAN CELL HGB CONCENTRATION (test code = MCHC) 34.9 g/dL 30.8-34.1 H RED CELL DISTRIBUTION WIDTH (test code = RDW) 13.7 % 11-16 N PLT (test code = PLT) 242 K/mm3 130-400 N MEAN PLATELET VOLUME (test c ode = MPV) 11.2 fL 8.9-12.1 N NEUTROPHIL % (test code = NT%) 65.6 % 45-70 N LYMPHOCYTE % (test code = LY%) 23.3 % 20-40 N MONOCYTE % (test code = MO%) 8.9 % 3-10 N EOSINOPHIL % (test code = EO%) 1.4 % 1-5 N BASOPHIL % (test code = BA%) 0.6 % 0.0-1.1 N NEUTROPHIL # (test code = NT#) 6.34 K/mm3 2.00-7.50 N LYMPHOCYTE # (test code = LY#) 2.25 K/mm3 1.50-4.00 N MONOCYTE # (test code = MO#) 0.86 K/mm3 0.2-0.8 H EOSINOPHIL # (test code = EO#) 0.14 K/mm3 0.04-0.4 N BASOPHIL # (test code = BA#) 0.06 K/mm3 0.02-0.10 N MANUAL DIFF REQUIRED (test c ode = MDIFF) NO MANUAL DIFF NUCLEATED RED BLOOD CELL (te st code = NRBC) 0 % 0-0 N SED [id number] 17:12:00* Test Item Value Reference Range Interpretation Comme nts SED RATE (test code = SEDW) mm/hr 0-15 - MRI LW JNT W/O CONT [id number] 16:06:00 [facility] 1955 Sex: M Patient Name: PATY KC Unit No: [id number] EXAMS: CPT CODE: [id number] MRI LW JNT W/[place] [address] MRI LEFT ANKLE DIAGNOSIS: 1. 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 These are likely related to patellar fracture which is healed. This may be further evaluated with CT scan to evaluate for nonhealed fracture line. 2. Coronal sequence demonstrates a medial calcaneal facet articulating with the distal fibula. There is lateral subluxation of the calcaneus and subchondral bone marrow edema and bony irregularity adjacent to the posterior subtalar facet. There is combined subfibular and talocalcaneal impingement. There is hindfoot valgus. 3. Moderate tendinosis and tenosynovitis of the peroneal tendons. 4. The anterior talofibular and tibiofibular ligaments are diffusely thickened and increased signal compatible with chronic sprain. INDICATION: M25.572 COMPARISON: None TECHNIQUE: Multiplanar, multisequence MRI is obtained of the left ankle without contrast. FINDINGS: Laterally, thickening of the anterior talofibular and tibiofibular ligaments as described above. Peroneal tendinosis as described. Medially, the deltoid ligament is ill-defined and likely chronically sprained. The spring ligament is intact. The posterior tibial tendon, flexor digitorum longus and flexor hallucis longus tendons are intact. The tibialis anterior tendon and extensor tendons are intact. The sinus tarsi is normal. No fluid in the retrocalcaneal bursa. No high-grade narrowing o f the tibiotalar joint is seen. The Lisfranc ligament is intact. The Achilles tendon and the plantar fascia are intact. There is no evidence of muscular edema or atrophy. at 1606 Reported and signed by: Marshall Capps MD CC: Naren Simpson MD Technologist: NIDA STEVENSON RT(R) Transcribed D/ (1606) ShrutiGVG [facility] NAME: PATY KC [address] [facility] PHYS: BR. - Naren Simpson MD : 1955 AGE: 65 SEX: M [place] [address] LOC: Y.MRI PHONE #: [phone] EXAM DATE: 05/03/2021 STATUS: DEP CLI FAX #: [phone] RAD #: D/C DT PAGE 1 Signed Report Patient Name: PATY KC Unit No: [id number] EXAMS: CPT CODE: [id number] MRI LW JNT W/[place] [address] (Continued) Orig Print D/T: S: 05/03/2021 (1609) [facility] NAME: PATY KC [address] [place] [address] PHYS: . - Naren Simpson MD : 1955 AGE: 65 SEX: M [place] [address] LOC: Y.MRI PHONE #: [phone] EXAM DATE: 05/03/2021 STATUS: DEP CLI FAX #: [phone] RAD #: D/C DT PAGE 2 Signed Report- MRI LW JNT W/O CONT [id number] 16:06:00 [facility] : 1955 Sex: M PatientName: PATY KC Unit No: [id number] EXAMS: CPT CODE: [id number] MRI LW JNT W/[place] [address] MRILEFT ANKLE DIAGNOSIS: 1. 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 These are likely related to patellar fracture which is healed. This may be further evaluated with CT scan to evaluate for nonhealed fracture line. 2. Coronal sequence demonstrates a medial calcaneal facet articulating with the distal fibula. There is lateral subluxation of the calcaneus and subchondral bone marrow edema and bony irregularity adjacent to the posterior subtalar facet. There is combined subfibular and talocalcaneal impingement. There is hindfoot valgus. 3. Moderate tendinosis and tenosynovitis of the peroneal tendons. 4. The anterior talofibular and tibiofibular ligaments are diffusely thickened and increased signal compatible with chronic sprain. INDICATION: M25.572 COMPARISON: None TECHNIQUE: Multiplanar, multisequence MRI is obtained of the left ankle without contrast. FINDINGS: Laterally, thickening of the anterior talofibular and tibiofibular ligaments as described above. Peronealtendinosis as described. Medially, the deltoid ligament is ill-defined and likely chronically sprained. The spring ligament is intact. The posterior tibial tendon, flexor digitorum longus and flexor hallucis longus tendons are intact. The tibialis anterior tendon and extensor tendons are intact. The sinus tarsi is normal. No fluid in the retrocalcaneal bursa. No high-grade narrowing of the tibiotalar joint is seen. The Lisfranc ligament is intact. The Achilles tendon and the plantar fascia are intact. There is no evidence of muscular edema or atrophy. at 1606 Reported and signed by: Marshall Capps MD CC: Naren Simpson MD Technologist: NIDA STEVENSON RT(R) Transcribed D/ (9763) [facility] [address] [facility] PHYS: BRIMA.01 - Naren Simpson MD : 1955 AGE: 65 SEX:M [place] [address] LOC: Y.MRI PHONE #: [phone] EXAM DATE: 05/03/2021TATUS: REG CLI FAX #: [phone] RAD #: D/C DT PAGE 1 Signed Report Patient Name: PATY KC Unit No: [id number] EXAMS: CPT CODE: [id number] [place] LW JNT W/[place] [address] <Continued> Orig Print D/T: S: 05/03/2021 (0839) [facility] NAME: PATY KC [address] [facility] PHYS: BRIMA. - Naren Simpson MD : 1955 AGE: 65 SEX: M [place] [address] LOC: Y.MRI PHONE #: [phone] EXAM DATE: 05/03/2021 STATUS: REG CLI FAX #: [phone] RAD #:D/C DT PAGE 2 Signed Report- XR FLUORO [id number] 17:40:00 [facility] 1955 Sex: M Patient Name: PATY KC Unit No: [id number] EXAMS: CPT CODE: [id number] XR FLUORO NDL 94456 FLUOROSCOPICALLY GUIDED LEFT ANKLE JOINT Marcaine INJECTION COMMENT: After informed consent was obtained a 25-gauge needle is inserted into the left ankle joint under fluoroscopic control using sterile technique. 2 mL of Isovue- 300 is instilled into the joint. This is followed by injection of 5 mL of Marcaine. The patient tolerated the procedure well. 0.5 minutes of fluoroscopy time was used on this exam. at 1740 Reported and signed by: Marshall Capps MD CC: Naren Simpson MD; Hernesto Arias MD Technologist: RT Jamin.(R) Transcribed D/ (4159) tJEFFREYGVG [facility] NAME: PATY KC [address] [facility] PHYS: HARSHAL. - Naren Simpson MD : 1955 AGE: 65 SEX: M [place] [address] LOC: Y.RAD PHONE #: [phone] EXAM DATE: 04/25/2021 STATUS: REG CLI FAX #: [phone] RAD #: D/C DT PAGE 1 Signed Report Patient Name: PATY KC Unit No: [id number] EXAMS: CPT CODE: [id number] XR FLUORO NDL 59677 (Continued) Orig Print D/T: S: 04/25/2021 (5924) [facility] NAME: PATY KC [address] [facility] PHYS: . - Naren Simpson MD : 1955 AGE: 65 SEX: M [place] [address] LOC: Y.RAD PHONE #: [phone] EXAM DATE: 04/25/2021 STATUS: REG CLI FAX #: [phone] RAD #: D/C DT PAGE 2 Signed ReportCT FOOT LEFT WO [id number] 23:18:57Displaced lateral talar avulsion fractures. Lateral displacement of the peroneus tendons, concerning for lateralretinacular disruption. 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 Coronal and sagittal reformats were constructed and reviewed. FINDINGS: Diffuse osteopenia. Evidence of prior hardware through the medial midfootand calcaneus. 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 Flattening of the talar dome with diffuseill-defined tubular sclerosis and osteochondral defect which encompassesthe majority of the talar dome. Multiple osseous fragments are seen aboutthe medial and lateral aspects of the hindfoot. Suspected acute displacedavulsion fractures of the lateral talus. Lateral displacement of theperoneus tendons, concerning for lateral retinacular disruption. Lateralankle soft tissue swelling. [facility], Radiant Results Inft User - 04/11/2021 6:[address] FOOT LEFT WO CONTRASTINDICATION: None listedCOMPARISON: NoneTECHNIQUE: Axial CT imaging through the left foot was performed without IVcontrast. Coronal and sagittal reformats were constructed and reviewed .FINDINGS:Diffuse osteopenia. Evidence of prior hardware through the medial midfootand calcaneus. 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 Flattening of the talar dome with diffuseill-defined tubular sclerosis and osteochondral defect which encompassesthe majority of the talar dome. Multiple osseous fragments are seen aboutthe medial and lateral aspects of the hindfoot. Suspected acute displacedavulsion fractures of the lateral talus. Lateral displacement of theperoneus tendons, concerning for lateral retinacular disruption. 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
[2024-11-22] MEDS ORDERED: NA CHLORIDE 0.9% 1,000 ML ONE (12:09)
[2024-11-22 12:22] LABS: Absolute Eosinophils 0.1 K/uL (0-0.5); Absolute Lymphocytes (CBC) 1.6 K/uL (0.7-4.9); Absolute Monocytes 0.5 K/uL (0.1-1.3); Absolute Neutrophil 8.1 K/uL (1.8-8.0); Basophils % 0.5 % (0-1.3); Eosinophils % 0.6 % (0-4.4); Hematocrit 45.2 % (39.6-49.0); Lymphocytes % 15.9 % (15.3-44.8); MCH 29.8 pg (27.0-35.0); MCHC 33.2 g/dL (32.0-36.0); MCV 89.7 fL (80-100); MPV 8.6 fL (7.6-11.3); Monocytes % 4.8 % (3.3-12.3); Neutrophils % 78.2 % (41.7-73.7); Nucleated Red Blood Cells % 0.1 % (0-0); Platelets 240 thou/uL (152-406); RBC Red Blood Cell Count 5.03 M/uL (4.33-5.43); Red Cell Distribution Width 14.1 % (12.1-15.2)
[2024-11-22 12:38] LABS: Albumin 3.6 g/dL (3.4-5.0); Anion Gap 8.3 mEq/L (5.0-15.0); Bilirubin Total 0.6 mg/dL (0.2-1.0); Globulin 3.6 g/dL (2.3-3.5); Potassium 4.3 mEq/L (3.5-5.1); Protein, Total 7.2 g/dL (6.4-8.2)
[2024-11-22 13:47] LABS: Specific Gravity 1.006 (1.005-1.030); Sqamous Epithelial None Seen /HPF (None Seen); Urine Bacteria None Seen /HPF (<20); Urine Bilirubin NEGATIVE (Negative); Urine Blood Negative (Negative); Urine Clarity Clear (Clear); Urine Color Colorless (Yellow); Urine Culture Reflex Order NOT NEEDED; Urine Glucose TRACE (Negative); Urine Ketones NEGATIVE (Negative); Urine Microscopic Reflex YN ORDER UMIC; Urine Nitrite NEGATIVE (Negative); Urine Protein NEGATIVE (Negative); Urine RBC <5 /HPF (None Seen); Urine Urobilinogen Normal (Normal); Urine WBC None Seen /HPF (<5)
--- NOTE | 2024-11-22 13:54 | RAD REPORT ---
EXAMINATION: CT ABDOMEN AND PELVIS WITH CONTRAST CLINICAL INDICATION: Abdominal pain TECHNIQUE: CT abdomen and pelvis was performed, after the administration of 100 cc Isovue-300.. Sagit ja and coronal reconstructions were obtained. One or more of the following dose reduction techniques were used: Automated exposure control, adjustment of the mA and kV according to patient si ze, and iterative reconstruction. Unless otherwise specified, incidental findings do not require dedicated imaging follow-up. [id number]. Oral contrast was not given which limits evaluation of bowel and appendix. COMPARISON: .None FINDINGS: Fatty liver. The spleen, pancreas, right adrenal and kidneys appear unremarkable 14 mm left adrenal nodule Hounsfield unit of 41. Normal appendix. Mild diastases rectus abdominis muscles. The prostate gland imoderately enlarged. Small right and [id number] left inguinal hernias containing fat. Spondylosis lumbar spine No evidence of diverticulitis. : IMPRESSION: 14 mm left adrenal nodule probably an adenoma. Recommend 1 year follow up adrenal washout CT. If stable ? 1 year, no further follow-up imaging.
--- NOTE | 2024-11-22 14:06 | ER ---
Nurse's Notes [facility] Name: Jasen Lucas Age: 68 yrs Sex: Male : 1955 Arrival Date: 11/22/2024 Time: 11:31 Bed 15 Private MD: Diagnosis: Other specified abdominal hernia without obstruction or gangrene;Fatty (change of) liver, not elsewhere classified;Other specified disorders of adrenal gland;Hyperglycemia, unspecified Presentation: 11/22 11:46 Chief complaint: Sharp left sided abdominal pain x 2 weeks. Denies N/V/D/fever/urinary hb symptoms. Coronavirus screen: At this time, the client does not indicate any symptoms associated with coronavirus-19. Ebola Screen: No symptoms or risks identified at this time. Initial Sepsis Screen: Does the patient meet any 2 criteria? No. Patient's initial sepsis screen is negative. Does the patient have a suspected source of infection? No. Patient's initial sepsis screen is negative. Risk Assessment: Do you want to hurt yourself or someone else? Patient reports no desire to harm self or others. Onset of symptoms was November 08, 2024. 11:46 Method Of Arrival: Ambulatory hb 11:46 Acuity: JEROMY 3 hb Historical: - Allergies: 11:47 No Known Allergies; hb - PMHx: 11:47 Hypertension; hb - PSHx: 11:47 None; hb - Immunization history:: Adult Immunizations up to date. - Infectious Disease History:: Denies. - Social history:: Smoking status: Patient denies any tobacco usage or history of. Screenin:23 [facility] ED Fall Risk Assessment (Adult) History of falling in the last 3 months, me1 including since admission No falls in past 3 months (0 pts) Confusion or Disorientation No (0 pts) Intoxicated or Sedated No (0 pts) Impaired Gait No (0 pts) Mobility Assist Device Used No (0 pt) Altered Elimination No (0 pt) Score/Fall Risk Level 0 - 2 = Low Risk Maintained a safe environment, Provided non-skid footwear, Hourly rounding (assess needs \T\ fall precautionary measures) done. Abuse screen: Denies threats or abuse. Nutritional screening: No deficits noted. Tuberculosis screening: No symptoms or risk factors identified. Assessment: 12:23 General: Appears uncomfortable, obese, well groomed, well developed, Behavior is calm, me1 cooperative, appropriate for age, Reports Sharp left sided abdominal pain x 2 weeks. Denies N/V/D/fever/urinary symptoms. Pain: Complains of pain in anterior aspect of left lateral abdomen Pain does not radiate. Pain currently is 8 out of 10 on a pain scale. at worst was 10 out of 10 on a pain scale. Quality of pain is described as sharp, Pain began suddenly, Is continuous. Neuro: Level of Consciousness is awake, alert, obeys commands, Oriented to person, place, time, situation, Appropriate for age. Cardiovascular: Patient's skin is warm and dry. Respiratory: Airway is patent Respiratory effort is even, unlabored, Respiratory pattern is regular, symmetrical. GI: Abdomen is round non-distended, Bowel sounds present X 4 quads. Abdomen is tender to palpation in left lower quadrant. : No signs and/or symptoms were reported regarding the genitourinary system. Denies burning with urination, urinary frequency. EENT: No signs and/or symptoms were reported regarding the EENT system. Derm: Skin is intact, is healthy with good turgor, Skin is pink, warm \T\ dry. Musculoskeletal: No signs and/or symptoms reported regarding the musculoskeletal system. Vital Signs: 11:46 BP 146 / 86; Pulse 92; Resp 18; Temp 98.3; Pulse Ox 100% on R/A; Weight 108.86 kg; hb Height 5 ft. 10 in. ; Pain 10/10; 12:29 BP 157 / 86; Pulse 79; Resp 16; Pulse Ox 100% ; me1 13:00 BP 159 / 79; Pulse 75; Resp 16; Pulse Ox 97% ; me1 14:00 BP 150 / 75; Pulse 73; Resp 16; Pulse Ox 95% on R/A; me1 11:46 Body Mass Index 34.44 (108.86 kg, 177.8 cm) hb 11:46 Pain Scale: Adult hb ED Course: 11:34 Patient arrived in ED. ec2 11:34 Ciera Padilla MD is Attending Physician. gb1 11:47 Triage completed. hb 12:09 Samantha Stern, RN is Primary Nurse. me1 12:16 CBC with Diff Sent. bc6 12:16 CMP Sent. bc6 12:16 Initial lab(s) drawn, by me, sent to lab. Inserted saline lock: 20 gauge in right bc6 antecubital area, using aseptic technique. Blood collected. Flushed with 10 mL NS. 12:23 No provider procedures requiring assistance completed. me1 12:23 Patient has correct armband on for positive identification. Bed in low position. Call me1 light in reach. Side rails up X 1. Provided Education on: POC. Verbalized understanding.. Client placed on continuous cardiac and pulse oximetry monitoring. NIBP monitoring applied. Pulse ox on. NIBP on. 12:23 Arm band placed on Patient placed in an exam room. me1 13:14 Urinalysis w/ reflexes Sent. me1 13:14 Urine collected: clean catch specimen, clear. me1 13:16 CT Abd/Pelvis - IV Contrast Only In Process Unspecified. EDMS 14:43 IV discontinued, intact, bleeding controlled, No redness/swelling at site. Pressure me1 dressing applied. Administered Medications: 12:19 Drug: NS 0.9% IV 1000 ml IV at 1 bolus Per protocol; to be given as a bolus over 60 me1 minutes Route: IV; Rate: 1 bolus; Site: right antecubital; 13:43 Follow up: Response: No adverse reaction; IV Status: Completed infusion; IV Intake: me1 1000ml Medication: 12:23 VIS not applicable for this client. me1 Intake: 13:43 IV: 1000ml; Total: 1000ml. me1 Outcome: 14:06 Discharge ordered by MD. gb1 14:43 Discharged to home ambulatory, me1 14:43 Condition: stable 14:43 Discharge instructions given to patient, Instructed on discharge instructions, follow up and referral plans. Demonstrated understanding of instructions, follow-up care, 14:43 Patient left the ED. me1 Signatures: Dispatcher [employer] EDMS Vicki Kinney RN RN hb Ana Ansari 6 Samantha Stern RN RN me1 Bebeto Cabrera MD MD ec2 Ciera Padilla MD MD gb1 Corrections: (The following items were deleted from the chart) 12:23 11:46 Chief complaint: Sharp left sided abdominal pain x 2 weeks. Denies me1 N/V/D/fever/urinary symptoms. hb
--- NOTE | 2024-11-22 14:06 | EDPHYS ---
Physician Documentation [facility] Name: Jasen Lucas Age: 68 yrs Sex: Male : 1955 Arrival Date: 11/22/2024 Time: 11:31 Bed 15 Private MD: ED Physician Ciera Padilla HPI: 11/22 14:00 This 68 yrs old Male presents to ER via Ambulatory with complaints of gb1 Abdominal Pain. 14:00 68-year-old male here with left and right groin pain for 3 to 4 weeks that he gb1 was initially and ignoring but then when he woke up this morning the pain felt worse. He denies any genitourinary symptoms. No difficulty with urination no diarrhea no nausea vomiting no fever or chills. Patient is otherwise reports to be in a good state of health. The pain is worse when he moves around and when he first up in the morning. He denies any weight loss.. Historical: - Allergies: 11:47 No Known Allergies; hb - PMHx: 11:47 Hypertension; hb - PSHx: 11:47 None; hb - Immunization history:: Adult Immunizations up to date. - Infectious Disease History:: Denies. - Social history:: Smoking status: Patient denies any tobacco usage or history of. Exam: 14:00 Constitutional: This is a well developed, well nourished patient who is awake, alert, gb1 and in no acute distress. Head/Face: Normocephalic, atraumatic. Eyes: Pupils equal round and reactive to light, extra-ocular motions intact. Lids and lashes normal. Conjunctiva and sclera are non-icteric and not injected. Cornea within normal limits. Periorbital areas with no swelling, redness, or edema. ENT: Nares patent. No nasal discharge, no septal abnormalities noted. Tympanic membranes are normal and external auditory canals are clear. Oropharynx with no redness, swelling, or masses, exudates, or evidence of obstruction, uvula midline. Mucous membranes moist. Neck: Trachea midline, no thyromegaly or masses palpated, and no cervical lymphadenopathy. Supple, full range of motion without nuchal rigidity, or vertebral point tenderness. No Meningismus. Chest/axilla: Normal chest wall appearance and motion. Nontender with no deformity. No lesions are appreciated. Cardiovascular: Regular rate and rhythm with a normal S1 and S2. No gallops, murmurs, or rubs. Normal PMI, no JVD. No pulse deficits. Respiratory: Lungs have equal breath sounds bilaterally, clear to auscultation and percussion. No rales, rhonchi or wheezes noted. No increased work of breathing, no retractions or nasal flaring. Abdomen/GI: Soft, non-tender, with normal bowel sounds. No distension or tympany. No guarding or rebound. Patient has mild tenderness with the palpation of the left lower groin and right lower groin. Left is greater than right. Back: No spinal tenderness. No costovertebral tenderness. Full range of motion. Skin: Warm, dry with normal turgor. Normal color with no rashes, no lesions, and no evidence of cellulitis. MS/ Extremity: Pulses equal, no cyanosis. Neurovascular intact. Full, normal range of motion. Neuro: Awake and alert, GCS 15, oriented to person, place, time, and situation. Cranial nerves II-XII grossly intact. Motor strength 5/5 in all extremities. Sensory grossly intact. Cerebellar exam normal. Normal gait. Vital Signs: 11:46 BP 146 / 86; Pulse 92; Resp 18; Temp 98.3; Pulse Ox 100% on R/A; Weight 108.86 kg; hb Height 5 ft. 10 in. ; Pain 10/10; 12:29 BP 157 / 86; Pulse 79; Resp 16; Pulse Ox 100% ; me1 13:00 BP 159 / 79; Pulse 75; Resp 16; Pulse Ox 97% ; me1 14:00 BP 150 / 75; Pulse 73; Resp 16; Pulse Ox 95% on R/A; me1 11:46 Body Mass Index 34.44 (108.86 kg, 177.8 cm) hb 11:46 Pain Scale: Adult hb MDM: 11:48 Medical Screening Exam initiated gb1 14:00 Differential diagnosis: appendicitis, bowel obstruction, cholecystitis, Cholelithiasis, gb1 diverticulitis, gastritis, non-specific abd pain, pancreatitis. Data reviewed: vital signs, nurses notes, lab test result(s), amylase and lipase, CBC, electrolytes. ED course: 5-year-old male with bilateral intermittent groin pain for 3 to 4 weeks. Patient does have findings consistent with inguinal hernia, fat-containing as well as an adrenal nodule. He also has signs of fatty liver disease as well. His blood sugar is low but elevated but no signs of DKA. I do recommend patient be seen and evaluated as an outpatient for full physical exam to include blood work and preventative maintenance labs to include hemoglobin A1c, cholesterol, triglycerides and thyroid management. I have also discussed at length with the patient the importance of following up with repeat imaging to follow the adrenal abnormal finding on the CT scan. No signs of ureterolithiasis, AAA or diverticulosis/diverticulitis. No signs of acute abdominal infections to suggest peritonitis or acute appendicitis.. 11/22 12:10 Order name: CBC with Diff; Complete Time: 12:37 gb1 11/22 12:10 Order name: CMP; Complete Time: 13:22 gb1 11/22 12:10 Order name: Lipase; Complete Time: 13:22 gb1 11/22 12:10 Order name: Urinalysis w/ reflexes; Complete Time: 13:47 gb1 11/22 12:10 Order name: CT Abd/Pelvis - IV Contrast Only; Complete Time: 13:58 gb1 11/22 12:10 Order name: IV Saline Lock; Complete Time: 12:16 gb1 11/22 12:10 Order name: Labs collected and sent; Complete Time: 12:16 gb1 Administered Medications: 12:19 Drug: NS 0.9% IV 1000 ml IV at 1 bolus Per protocol; to be given as a bolus over 60 me1 minutes Route: IV; Rate: 1 bolus; Site: right antecubital; 13:43 Follow up: Response: No adverse reaction; IV Status: Completed infusion; IV Intake: me1 1000ml Disposition Summary: 11/22/24 14:06 Discharge Ordered Notes: Location: Home gb1 Condition: Stable gb1 Problem: new gb1 Symptoms: have improved gb1 Diagnosis - Other specified abdominal hernia without obstruction or gangrene gb1 - Fatty (change of) liver, not elsewhere classified gb1 - Other specified disorders of adrenal gland gb1 - Hyperglycemia, unspecified gb1 Followup: gb1 - With: Private Physician - When: - Reason: Recheck today's complaints Discharge Instructions: - Discharge Summary Sheet gb1 - Hyperglycemia gb1 - Hernia, Adult, [id number] gb1 - Screening for Type 2 Diabetes gb1 Forms: - Medication Reconciliation Form gb1 - Antibiotic Education gb1 - Prescription Opioid Use gb1 - Patient Portal Instructions gb1 - Leadership Thank You Letter gb1 Signatures: Dispatcher [employer] Vicki Dimas, RN RN Samantha Stern RN RN me1 Ciera Padilla MD MD gb1
[2024-11-22 15:06] VITALS: TEMP 98.3
[2024-11-22 15:14] VITALS: BP 150/75; O2SAT 95
== END 2024-11-22 14:43 | disposition home or self-care (01) ==
LOC: ER 11:31
DX: K45.8 Other specified abdominal hernia without obstruction or gangrene (principal); K76.0 Fatty (change of) liver, not elsewhere classified; R73.9 Hyperglycemia, unspecified; E27.8 Other specified disorders of adrenal gland
CPT/HCPCS: 85025; 81001; 36415; 83690; 80053; 74177; 96360; 99284; Q9967; J7030